=== PATIENT | female | born 1955 | race Caucasian/White ===

== ENCOUNTER → 2018-03-31 08:39 | Outpatient (CLI) | payer MEDICARE, SELFPAY | DX: M81.0 Age-related osteoporosis without current pathological fracture (principal) | CPT/HCPCS: 77080 ==

== ENCOUNTER → 2018-09-16 07:38 | Outpatient (CLI) | payer MEDICARE, SELFPAY ==
--- NOTE | 2018-09-16 07:41 | BI_ITS ---
MAMMOGRAPHY - BILATERAL SCREENING REASON FOR EXAM: Female, 63 years old. Routine annual screening examination. PERTINENT HISTORY: Non-contributory. Remote left stereotactic breast biopsy. TECHNIQUE: Digital bilateral breast anahy (3D mammographic acquisition) in the CC and MLO projections. 2-D mediolateral oblique (MLO) and craniocaudad (CC) views of both breasts were obtained. CAD: Full Field Digital Mammography with Computer Added Detection was performed. COMPARISON: Comparison is made with prior study dated July 10, 2017 and June 26, 2016. FINDINGS: Breast Composition: There are scattered areas of fibroglandular density. There are no dominant masses or suspicious calcifications. A tissue clip marker is once again seen in the inferior central portion of the left breast. No other significant abnormalities are identified. There has been no significant change since the prior study. BI/SCREENING MAMM (CAD), BILAT IMPRESSION: Stable bilateral screening mammogram. Yearly follow-up mammogram recommended. (A) ASSESSMENT CATEGORY: BIRADS Category 2: Benign. A letter regarding these results will be sent to the patient by the facility within 30 days. Approximately 10% of breast cancers are not detected by mammography. A normal mammogram should not delay biopsy of a clinically suspicious abnormality. [id number] Electronically Signed: Alton Resendiz MD at 9:40 EST , Service support ,
== END ==
DX: Z12.31 Encounter for screening mammogram for malignant neoplasm of breast (principal)
CPT/HCPCS: 77063; 77067

== ENCOUNTER → 2019-09-21 15:11 | Outpatient (CLI) | payer MEDICARE, SELFPAY ==
--- NOTE | 2019-09-21 15:17 | BI_ITS ---
MAMMOGRAPHY - BILATERAL SCREENING REASON FOR EXAM: Female, 64 years old. Routine annual screening examination. PERTINENT HISTORY: Non-contributory. TECHNIQUE: Digital bilateral breast jackeline (3D mammographic acquisition) in the CC and MLO projections. 2-D mediolateral oblique (MLO) and craniocaudad (CC) views of both breasts were obtained. CAD: Full Field Digital Mammography with Computer Added Detection was performed. COMPARISON: Comparison is made with prior study dated September 16, 2018 and July 10, 2017. FINDINGS: Breast Composition: There are scattered areas of fibroglandular density. There are no dominant masses or suspicious calcifications. A tissue clip marker is seen within the small nodular density in the inferior slightly medial aspect of the left breast. No other significant abnormalities are identified. There has been no significant change since the prior study. BI/SCREEN MAMM (CAD) W/JACKELINE BILAT IMPRESSION: Stable bilateral screening mammogram. Yearly follow-up mammogram recommended. (A) ASSESSMENT CATEGORY: BIRADS Category 2: Benign. A letter regarding these results will be sent to the patient by the facility within 30 days. Approximately 10% of breast cancers are not detected by mammography. A normal mammogram should not delay biopsy of a clinically suspicious abnormality. [id number] Electronically Signed: Alton Resendiz, at 8:29 EST , Service support ,
== END ==
DX: Z12.31 Encounter for screening mammogram for malignant neoplasm of breast (principal)
CPT/HCPCS: 77063; 77067

== ENCOUNTER → 2020-06-08 11:15 | Outpatient (CLI) ==
[2020-06-08 11:32] LABS: Absolute Lymphocyte Count 2.77 X10^3/uL (0.83-4.51); Absolute Neutrophil Count 7.5 X10^3/uL (2.0-7.7); Basophil# 0.05 X10^3/uL; Basophil% 0.4 % (0-1); Eosinophil# 0.17 X10^3/uL; Eosinophils% 1.5 % (0-5); Hematocrit 39.2 % (37-47); Hemoglobin 12.7 g/dL (12.0-15.0); Lymphocyte # 2.77 X10^3/ul (4.0); Lymphocyte % 24.1 % (19-41); Mean Corp Hgb Conc 32.4 g/dL (32-36); Mean Corpuscular Volume 92.7 fL (81-99); Mean Platelet Vol. 9.5 fl (6.2-12.0); Monocyte# 0.98 X10^3/uL; Monocyte% 8.5 % (0-10); NRBC Flagged by Analyzer 0 % (0-5); Neutrophil # 7.46 X10^3/uL (2.7-7.7); Platelet Count 318 K/mm3 (150-450); RBC Distribution Width CV 12.4 % (11.6-14.6); Red Blood Count 4.23 M/mm3 (4.2-5.4); White Blood Count 11.5 K/mm3 (4.4-11.0)
[2020-06-08 11:57] LABS: ALB/GLOB Ratio 0.8 RATIO (0.9-2.4); AST(SGOT) 13 U/L (15-37); Alanine Aminotransfer ALT/SGPT 19 U/L (13-56); Albumin, Serum 3.1 g/dL (3.2-5.0); Alkaline Phosphatase 92 U/L (45-117); Anion Gap 2 (5-15); BUN 25 mg/dL (7-18); BUN/Creat Ratio 20.2 RATIO (10-20); Calcium,Total 9.4 mg/dL (8.5-10.1); Chloride 109 mmol/L (98-107); Cholesterol 174 mg/dL (200); Creatinine, Serum 1.24 mg/dL (0.55-1.02); EST Glomerular Filtration Rate 46 mL/min (>60); Est Glom Filt Rate - Afr Amer 56 mL/min (>60); Globulin 3.7 g/dL (2.2-4.2); Glucose 199 mg/dL (74-106); High Density Lipoprotein 66 mg/dL; Potassium 4.5 mmol/L (3.5-5.1); Protein, Total 6.8 g/dL (6.4-8.2); Sodium Level 142 mmol/L (136-145); Triglycerides 155 mg/dL; Very Low Density Lipoprotein 31 mg/dL (5-40)
[2020-06-08 12:01] LABS: Vitamin D,25 Hydroxy 46.6 ng/mL
[2020-06-08 12:11] LABS: Hemoglobin A1c 11.9 % (3.8-5.6)
== END ==
DX: D64.9 Anemia, unspecified (principal); E11.65 Type 2 diabetes mellitus with hyperglycemia; I10 Essential (primary) hypertension; E78.5 Hyperlipidemia, unspecified; M81.0 Age-related osteoporosis without current pathological fracture; E83.52 Hypercalcemia
CPT/HCPCS: 36415; 80053; 80061; 82306; 83036; 85025

== ENCOUNTER → 2020-08-01 10:48 | Outpatient (CLI) | payer MEDICARE, SELFPAY ==
[2020-08-01 12:14] LABS: Thyroid Stim Hormone (TSH) 2.46 uIU/mL (0.358-3.74)
== END ==
PROVIDERS: Referring Provider Family Medicine; Visit Provider Family Medicine
DX: E78.5 Hyperlipidemia, unspecified (principal); E11.65 Type 2 diabetes mellitus with hyperglycemia
CPT/HCPCS: 36415; 84443

== ENCOUNTER → 2020-11-05 09:00 | Outpatient (CLI) | payer MEDICARE, SELFPAY ==
[2020-11-05 09:59] LABS: Glucose 276 mg/dL (74-106)
[2020-11-05 10:21] LABS: Hemoglobin A1c > 14.0 % (3.8-5.6)
== END ==
DX: E11.65 Type 2 diabetes mellitus with hyperglycemia (principal)
CPT/HCPCS: 36415; 82947; 83036

== ENCOUNTER → 2020-11-19 10:14 | Outpatient (CLI) | payer MEDICARE, SELFPAY ==
--- NOTE | 2020-11-19 10:28 | RAD_ITS ---
INDICATION: NICOTINE DEPENDENCE EXAMINATION/TECHNIQUE: X-RAY - XR Chest 2 Views COMPARISON: None. FINDINGS: Chronic lung changes. The cardiomediastinal silhouette is unremarkable. No pleural effusion or pneumothorax. No acute osseous abnormalities. RAD/Chest PA and Lateral IMPRESSION: No acute radiographic abnormalities. Chronic lung changes. Consider lung cancer screening low dose Chest CT w/o contrast. Electronically Signed: Cirilo Solis MD at 0:33 EDT Tel , Service support ,
[2020-11-19 10:38] LABS: Absolute Lymphocyte Count 3.03 X10^3/uL (0.83-4.51); Absolute Neutrophil Count 16.5 X10^3/uL (2.0-7.7); Basophil# 0.06 X10^3/uL; Basophil% 0.3 % (0-1); Eosinophil# 0.16 X10^3/uL; Eosinophils% 0.7 % (0-5); Hematocrit 39.1 % (37-47); Hemoglobin 12.4 g/dL (12.0-15.0); Lymphocyte # 3.03 X10^3/ul (4.0); Lymphocyte % 13.9 % (19-41); Mean Corp Hgb Conc 31.7 g/dL (32-36); Mean Corpuscular Hgb 29.7 pg (27.0-32.0); Mean Corpuscular Volume 93.8 fL (81-99); Mean Platelet Vol. 9.5 fl (6.2-12.0); Monocyte# 1.92 X10^3/uL; Monocyte% 8.8 % (0-10); NRBC Flagged by Analyzer 0 % (0-5); Neutrophil # 16.49 X10^3/uL (2.7-7.7); Neutrophil % 75.6 % (47-70); POSITIVE DIFFERENTIAL YES; Platelet Count 426 K/mm3 (150-450); RBC Distribution Width CV 13.2 % (11.6-14.6); RBC Distribution Width SD 45.3 fl (35.1-43.9); Red Blood Count 4.17 M/mm3 (4.2-5.4); White Blood Count 21.8 K/mm3 (4.4-11.0)
[2020-11-19 10:40] LABS: Differential Indicated SCAN CRITERIA MET
[2020-11-19 11:17] LABS: ALB/GLOB Ratio 0.8 RATIO (0.9-2.4); AST(SGOT) 16 U/L (15-37); Alanine Aminotransfer ALT/SGPT 20 U/L (13-56); Albumin, Serum 3.1 g/dL (3.2-5.0); Alkaline Phosphatase 99 U/L (45-117); Anion Gap 3 (5-15); BUN 20 mg/dL (7-18); BUN/Creat Ratio 17.9 RATIO (10-20); Calcium,Total 9.1 mg/dL (8.5-10.1); Chloride 107 mmol/L (98-107); Creatinine, Serum 1.12 mg/dL (0.55-1.02); EST Glomerular Filtration Rate 52 mL/min (>60); Est Glom Filt Rate - Afr Amer 63 mL/min (>60); Globulin 3.7 g/dL (2.2-4.2); Glucose 74 mg/dL (74-106); Iron 34 ug/dL (50-170); Iron Binding Capacity,Total 301 ug/dL (250-450); Potassium 3.7 mmol/L (3.5-5.1); Protein, Total 6.8 g/dL (6.4-8.2); Sodium Level 141 mmol/L (136-145); T4 Free Direct 1.16 ng/dL (0.76-1.46); Thyroid Stim Hormone (TSH) 3.51 uIU/mL (0.358-3.74)
[2020-11-20 12:34] LABS: Pathologist Review Reviewed
== END ==
DX: E11.65 Type 2 diabetes mellitus with hyperglycemia (principal); F17.200 Nicotine dependence, unspecified, uncomplicated
CPT/HCPCS: 36415; 71046; 80053; 83540; 83550; 84439; 84443; 85025

== ENCOUNTER → 2020-11-21 08:17 | Outpatient (CLI) | payer MEDICARE, SELFPAY ==
--- NOTE | 2020-11-21 08:19 | BI_ITS ---
MAMMOGRAPHY - BILATERAL SCREENING REASON FOR EXAM: Female, 65 years old. Routine annual screening examination. PERTINENT HISTORY: Non-contributory. Remote left stereotactic breast biopsy. TECHNIQUE: Digital bilateral breast jackeline (3D mammographic acquisition) in the CC and MLO projections. 2-D mediolateral oblique (MLO) and craniocaudad (CC) views of both breasts were obtained. CAD: Full Field Digital Mammography with Computer Added Detection was performed. COMPARISON: Comparison is made with prior study dated 09/21/2019 and 03/16/2019. FINDINGS: Breast Composition: The breasts are heterogeneously dense, which may obscure small masses. There are no dominant masses or suspicious calcifications. Since prior study, there has been increase in the amount of fibroglandular tissue as well as bilateral skin thickening. A tissue clip marker is once again seen in the inferior slightly medial aspect of the left breast. No other significant abnormalities are identified. There has been no significant change since the prior study. BI/SCRN MAMM (CAD)W/JACKELINE BILAT IMPRESSION: Stable bilateral screening mammogram. Bilateral skin thickening and increased breast tissue in both breasts as compared to prior study. Yearly follow-up mammogram recommended. (A) ASSESSMENT CATEGORY: BIRADS Category 2: Benign. A letter regarding these results will be sent to the patient by the facility within 30 days. Approximately 10% of breast cancers are not detected by mammography. A normal mammogram should not delay biopsy of a clinically suspicious abnormality. [id number] Electronically Signed: Alton Resendiz MD at 10:20 EDT , Service support ,
--- NOTE | 2020-11-21 08:36 | EKG12_ITS ---
Test Reason : Blood Pressure : / mmHG Vent. Rate : 093 BPM Atrial Rate : 093 BPM P-R Int : 186 ms QRS Dur : 098 ms QT Int : 338 ms P-R-T Axes : 076 010 -40 degrees QTc Int : 420 ms Sinus rhythm with Premature atrial complexes in a pattern of bigeminy Left ventricular hypertrophy with repolarization abnormality Anterior infarct , age undetermined Abnormal ECG Confirmed by JETT OQUENDO, KIERA ([id number]), brands editor MATTHEW MORA ([id number]) on 11/22/2020 10:48:48 AM Referred By: [facility] Confirmed By:KIERA FRAUSTO MD
== END ==
DX: Z12.31 Encounter for screening mammogram for malignant neoplasm of breast (principal); I49.9 Cardiac arrhythmia, unspecified
CPT/HCPCS: 77063; 77067; 93005

== ENCOUNTER → 2020-12-03 11:34 | Outpatient (CLI) | payer MEDICARE, SELFPAY ==
[2020-12-03 13:08] LABS: Absolute Neutrophil Count 9.2 X10^3/uL (2.0-7.7); Basophil# 0.03 X10^3/uL; Basophil% 0.2 % (0-1); Eosinophil# 0.09 X10^3/uL; Eosinophils% 0.7 % (0-5); Hematocrit 33.5 % (37-47); Hemoglobin 10.7 g/dL (12.0-15.0); Lymphocyte % 16.5 % (19-41); Mean Corp Hgb Conc 31.9 g/dL (32-36); Mean Corpuscular Hgb 30.2 pg (27.0-32.0); Mean Corpuscular Volume 94.6 fL (81-99); Mean Platelet Vol. 9.9 fl (6.2-12.0); Monocyte# 0.75 X10^3/uL; Monocyte% 6.2 % (0-10); NRBC Flagged by Analyzer 0 % (0-5); Neutrophil # 9.18 X10^3/uL (2.7-7.7); Neutrophil % 75.8 % (47-70); Platelet Count 373 K/mm3 (150-450); RBC Distribution Width CV 13.2 % (11.6-14.6); RBC Distribution Width SD 45.3 fl (35.1-43.9); Red Blood Count 3.54 M/mm3 (4.2-5.4); White Blood Count 12.1 K/mm3 (4.4-11.0)
[2020-12-03 13:50] LABS: Microalbumin:Creatinine Ratio 2918.2 mg/g CRE (<30 mg/g CRE)
== END ==
DX: E11.65 Type 2 diabetes mellitus with hyperglycemia (principal)
CPT/HCPCS: 36415; 82043; 82570; 85025

== ENCOUNTER → 2020-12-05 11:04 | Outpatient (CLI) | payer MEDICARE, SELFPAY | DX: E11.65 Type 2 diabetes mellitus with hyperglycemia (principal) | CPT/HCPCS: 82274 ==

== ENCOUNTER → 2020-12-10 07:53 | Outpatient (CLI) | payer MEDICARE, SELFPAY ==
--- NOTE | 2020-12-10 07:55 | CT_ITS ---
STUDY: LOW DOSE CT LUNG CANCER SCREENING REASON FOR EXAM: Female, 65 years old. NICOTINE DEPENDENCE. The patient has a smoking history of 1 pack per day for 17 years. RADIATION DOSAGE (If Supplied By Facility): CTDIvol = ( 2.01 ) mGy, DLP = ( 64.69 ) mGycm TECHNIQUE: No contrast was administered. Low dose technique was utilized (average mAS-38 and kVp 120). 1.25 mm axial source images with a slice interval of 1.25-mm were reconstructed in lung windows. 2.5 mm axial source images with a slice interval of 2.5-mm were reconstructed in lung windows. 5.0 mm axial source images with a slice interval of 5.0-mm were reconstructed in soft tissue windows. Nodule measured using lung windows on PACS and/or independent workstation with automated measurement of minimum and maximum diameter. Nodule measurement reported as average diameter rounded to the nearest whole number. Growth is defined as an increase ins size of greater than 1.5 mm. COMPARISON: None. NODULES: No suspicious nodules are seen. Emphysema: Bilateral pleural effusions right greater than left with bibasilar atelectasis. Increased interstitial markings are seen. This is suggestive of possible mild degree of CHF. Increased markings are also seen in the posterior aspect of the right middle lobe as well as in the lingula segment of the left upper lobe suggestive of a atelectasis. Endobronchial lesion: None Aorta: Minimal atherosclerotic plaque formation of the aortic arch. Coronary arteries: Coronary artery calcification. Heart: Cardiomegaly. Mediastinal nodes: Small benign-appearing axillary lymph nodes. Other chest and abdominal findings: CT/Low Dose CT Lung Screening IMPRESSION: Lung-RADS category 2 - Continue annual screening with LDCT in 12 months. IMPORTANT NOTES FOR USE: ACR Lung-RADS Version 1.1 Assessment Categories Release Date: 2018 Category: Coded 0-4 bases on nodule(s) with highest degree of suspicion. Negative screen is defined as categories 1 and 2; a positive screen is defined as categories 3 and 4. Category 3 and 4A nodules that are unchanged on interval CT should be coded as category 2, and individuals returned to screening in 12 months. Category 4X: Category 3 or 4 nodules with additional imaging findings that increase the suspicion of lung cancer, such as spiculation, GGN that doubles in size in 1 year, enlarged lymph notes, etc. Category Modifiers: S (significant finding unrelated to lung cancer) Electronically Signed: Alton Resendiz MD at 9:18 EDT , Service support ,
== END ==
DX: F17.210 Nicotine dependence, cigarettes, uncomplicated (principal)
CPT/HCPCS: 71271

== ENCOUNTER → 2020-12-13 12:22 | Outpatient (CLI) | payer MEDICARE, SELFPAY ==
[2020-12-13 14:05] LABS: BNP,B-Type NATRIURETIC PEPTIDE 959.8 pg/mL (0-100)
== END ==
DX: I50.20 Unspecified systolic (congestive) heart failure (principal)
CPT/HCPCS: 36415; 83880

== ENCOUNTER 2020-12-15 01:05 | Inpatient (IN) | payer MEDICARE, SELFPAY ==
[2020-12-15] VITALS (57 sets, daily range): BP systolic 120–246; BP diastolic 53–103; PULSE 70–122; RESP 12–42; TEMP 35.8–36.8; O2SAT 87–249; BMI 23.0; BMI 24.7; BMI 24.8
--- NOTE | 2020-12-15 01:06 | RAD_ITS ---
STUDY: X-RAY CHEST REASON FOR EXAM: Female, 65 years old. Sob TECHNIQUE: 1 view COMPARISON: 11/19/2020 FINDINGS: Cardiac silhouette is mildly enlarged. There has been interval development of small bowel to moderate-sized bilateral pleural effusions and lower lung airspace opacities, likely atelectasis. Mild pulmonary vascular congestion is seen. There is no pneumothorax. Multilevel thoracic spondylosis is noted. RAD/Chest 1 View (Portable) IMPRESSION: Developing CHF. Electronically Signed: Darrel Hoover MD at 1:40 EDT Tel , Service support ,
--- NOTE | 2020-12-15 01:06 | EKG12_ITS ---
Test Reason : SOB Blood Pressure : / mmHG Vent. Rate : 109 BPM Atrial Rate : 109 BPM P-R Int : 128 ms QRS Dur : 092 ms QT Int : 350 ms P-R-T Axes : 068 005 092 degrees QTc Int : 471 ms Somatic/Motion Artifact Sinus tachycardia Left ventricular hypertrophy Nonspecific ST and T wave abnormality Abnormal ECG Confirmed by JETT OQUENDO, KIERA ([id number]), brands editor TULIO MCFARLAND ([id number]) on 12/18/2020 8:46:18 AM Referred By: [facility] Confirmed By:KIERA FRAUSTO MD
[2020-12-15 01:16] LABS: Bedside Glucose 418 mg/dL (70-110)
[2020-12-15 01:25] LABS: Absolute Lymphocyte Count 4.33 X10^3/uL (0.83-4.51); Absolute Neutrophil Count 7.7 X10^3/uL (2.0-7.7); Basophil# 0.07 X10^3/uL; Basophil% 0.5 % (0-1); Eosinophil# 0.11 X10^3/uL; Eosinophils% 0.8 % (0-5); Hematocrit 37.6 % (37-47); Hemoglobin 11.5 g/dL (12.0-15.0); Lymphocyte # 4.33 X10^3/ul (0.83-4.51); Lymphocyte % 31.7 % (19-41); Mean Corp Hgb Conc 30.6 g/dL (32-36); Mean Corpuscular Hgb 29.9 pg (27.0-32.0); Mean Corpuscular Volume 97.7 fL (81-99); Mean Platelet Vol. 9.4 fl (6.2-12.0); Monocyte# 1.35 X10^3/uL; Monocyte% 9.9 % (0-10); NRBC Flagged by Analyzer 0 % (0-5); Neutrophil % 56.3 % (47-70); Platelet Count 515 K/mm3 (150-450); RBC Distribution Width CV 13.6 % (11.6-14.6); RBC Distribution Width SD 48.6 fl (35.1-43.9); Red Blood Count 3.85 M/mm3 (4.2-5.4); White Blood Count 13.7 K/mm3 (4.4-11.0)
[2020-12-15] MEDS: Nitroglycerin SL (ED/IMG/CATH) 0.4 MG TABLET SL (01:25)
[2020-12-15 01:43] LABS: ALB/GLOB Ratio 0.8 RATIO (0.9-2.4); AST(SGOT) 85 U/L (15-37); Alanine Aminotransfer ALT/SGPT 79 U/L (13-56); Albumin, Serum 3.1 g/dL (3.2-5.0); Alkaline Phosphatase 146 U/L (45-117); Anion Gap 5 (5-15); BUN 31 mg/dL (7-18); BUN/Creat Ratio 20.4 RATIO (10-20); Calcium,Total 9.5 mg/dL (8.5-10.1); Chloride 107 mmol/L (98-107); Creatinine, Serum 1.52 mg/dL (0.55-1.02); EST Glomerular Filtration Rate 37 mL/min (>60); Est Glom Filt Rate - Afr Amer 44 mL/min (>60); Estimated Creatinine Clearance 35.46 ml/min; Globulin 4.1 g/dL (2.2-4.2); Glucose 439 mg/dL (74-106); Protein, Total 7.2 g/dL (6.4-8.2); Sodium Level 141 mmol/L (136-145)
[2020-12-15 01:46] LABS: BNP,B-Type NATRIURETIC PEPTIDE 1079.6 pg/mL (0-100)
[2020-12-15 01:50] LABS: Allen Test Positive; Base Excess 2 mmol/L (-2 to +2); Bicarbonate 26.9 mmol/L (22-26); Blood Gas Specimen Type ART; FI02 50; O2 Delivery Device BiPAP; PEEP 6; PO2 61 mmHG (75-100); PS 10; RR 12; SITE L Radial; SO2 90 % (95-99); Total Carbon Dioxide 28 mmol/L; pCO2 45.7 mmHg (35-45); pH 7.38 (7.35-7.45)
--- NOTE | 2020-12-15 01:55 | ED.VIS.GEN ---
History of Present Illness Chief Complaint: Shortness of Breath Informant: Patient Onset: Days Context: Gradual Onset Timing: Continuous Current Severity: Moderate Maximum Severity: Severe Narrative: Patient is a 65-year-old female with history of smoking who presents to the emergency department with rather significant shortness of breath. The patient states that she has been short of breath for over a week. She actually had outpatient CT done 4 days ago. It did demonstrate large pleural effusions. Per squad report, she has been treated for pneumonia. She is had a scant cough, but no fever or chills. She called squad tonight, because she felt like she cannot catch her breath. On squad arrival, the patient was 82% on room air. She had significant accessory muscle use and tachypnea. She had rails. She was given nebulized breathing treatment with no improvement. She was placed on nonrebreather and saturations were only increased into 88%. Patient denies chest pain. She denies fever. She states that she cannot lie flat and has had increasing lower extremity edema. Prior similar symptoms: No Recent Illness/Hospitalization: No Past Medical History - Allergies and Home Meds Allergies/Adverse Reactions: Allergies No Known Allergies Allergy (Verified 12/15/20 01:09) [facility] - Prior records reviewed: Yes Past Medical History: - - Smoking history, hypertension Surgical History: noncontributory Smoking Status: Unknown if ever smoked Review of Systems General: Denies: Chills, Fever, Sweats Eyes: Denies: Visual changes - bilaterally, Diplopia ENT: Denies: Rhinorrhea, Sore throat Cardiovascular: Denies: Chest pain, Palpitations Respiratory: Reports: Dyspnea, Cough, Dyspnea on exertion, Orthopnea Gastrointestinal: Reports: Nausea. Denies: Abdominal pain, Vomiting, Diarrhea, Melena, Hematochezia Genitourinary: Denies: Dysuria, Hematuria, Frequency Musculoskeletal: Denies: Back pain, Extremity Pain Skin: Denies: Rash, Wounds Neurological: Denies: Headache, Weakness, Numbness Physical Exam Vital Signs/Narrative: Vital Signs Temp Pulse Resp BP Pulse Ox 12/15/20 01:25 120 H 246/103 H 12/15/20 01:07 96.5 F L 120 H 25 H 245/103 H 92 12/15/20 01:05 96.5 F L 122 H 24 H 87 Inital Vital Signs reviewed: Yes General: Well nourished, Well developed, No Acute Distress Head: Normocephalic, Atraumatic Eyes: Perrl, EOMI ENT: Moist mucous membranes, No rhinorrhea Neck: Supple, Nontender Cardiovascular: Regular rate, Regular rhythm, No murmurs Respiratory: Rales, Diminished, Decreased Air Movement Abdomen: Soft, Nontender, Nondistended, Normal bowel sounds Back: Nontender, Normal Inspection Extremities: Nontender, Edema Skin: Normal color, No rash Neurological: Alert, Oriented x3, Cranial nerves II-XII grossly intact, Normal Strength, Normal Sensation Psychological: Normal affect, Normal Mood Diagnostic/Tx/Re-eval Chest X-Ray - ED: 1 View, Read by ED Physician, Normal, Mediastinum, Cardiomegaly, CHF, Right Effusion, Left Effusion Clinical Impression(s) from Imaging Studies Chest X-Ray 12/15/20 01:06 IMPRESSION: Developing CHF. Electronically Signed: Darrel Hoover MD at 1:40 EDT Tel , Service support , Abnormal Lab Results 12/15/20 12/15/20 12/15/20 01:10 01:15 01:15 WBC 13.7 H RBC 3.85 L Hgb 11.5 L Hct 37.6 MCV 97.7 MCH 29.9 MCHC 30.6 L RDW Std Deviation 48.6 H RDW Coeff of Lurdes 13.6 Plt Count 515 H MPV 9.4 Immature Gran % (Auto) 0.800 Neut % (Auto) 56.3 Lymph % (Auto) 31.7 Hoke % (Auto) 9.9 Eos % (Auto) 0.8 Baso % (Auto) 0.5 Absolute Neuts (auto) 7.7 Absolute Lymphs (auto) 4.33 Nucleated RBC % 0 PT 12.0 INR 1.0 Specimen Type Sample Site pH Bicarbonate Actual Total CO2 Base Excess O2 Saturation O2 % ABG pCO2 ABG pO2 Storm Test Respiration Rate O2 Delivery Device POC PEEP POC Pressure Suppt Sodium Potassium Chloride Carbon Dioxide Anion Gap BUN Creatinine Estim Creat Clear Calc Est GFR (MDRD) Af Amer Est GFR (MDRD) Non-Af BUN/Creatinine Ratio Glucose Lactic Acid Calcium Total Bilirubin AST ALT Alkaline Phosphatase Troponin I B-Natriuretic Peptide Total Protein Albumin Globulin Albumin/Globulin Ratio Urine Color Urine Clarity Urine pH Ur Specific [place] Urine Protein Urine Glucose (UA) Urine Ketones Urine Occult Blood Urine Nitrite Urine Bilirubin Urine Urobilinogen Ur Leukocyte Esterase Urine RBC Urine WBC Ur Squamous Epith Cells Urine Bacteria Urine Mucus POC Glucose 418 H 12/15/20 12/15/20 12/15/20 01:15 01:15 01:15 WBC RBC Hgb Hct MCV MCH MCHC RDW Std Deviation RDW Coeff of Lurdes Plt Count MPV Immature Gran % (Auto) Neut % (Auto) Lymph % (Auto) Hoke % (Auto) Eos % (Auto) Baso % (Auto) Absolute Neuts (auto) Absolute Lymphs (auto) Nucleated RBC % PT INR Specimen Type Sample Site pH Bicarbonate Actual Total CO2 Base Excess O2 Saturation O2 % ABG pCO2 ABG pO2 Storm Test Respiration Rate O2 Delivery Device POC PEEP POC Pressure Suppt Sodium 141 Potassium 4.0 Chloride 107 Carbon Dioxide 29.0 Anion Gap 5 BUN 31 H Creatinine 1.52 H Estim Creat Clear Calc 35.46 Est GFR (MDRD) Af Amer 44 L Est GFR (MDRD) Non-Af 37 L BUN/Creatinine Ratio 20.4 H Glucose 439 H Lactic Acid 2.9 H* Calcium 9.5 Total Bilirubin 0.30 AST 85 H ALT 79 H Alkaline Phosphatase 146 H Troponin I 0.078 H B-Natriuretic Peptide 1079.6 H Total Protein 7.2 Albumin 3.1 L Globulin 4.1 Albumin/Globulin Ratio 0.8 L Urine Color Urine Clarity Urine pH Ur Specific [place] Urine Protein Urine Glucose (UA) Urine Ketones Urine Occult Blood Urine Nitrite Urine Bilirubin Urine Urobilinogen Ur Leukocyte Esterase Urine RBC Urine WBC Ur Squamous Epith Cells Urine Bacteria Urine Mucus POC Glucose 12/15/20 12/15/20 01:44 01:50 WBC RBC Hgb Hct MCV MCH MCHC RDW Std Deviation RDW Coeff of Lurdes Plt Count MPV Immature Gran % (Auto) Neut % (Auto) Lymph % (Auto) Hoke % (Auto) Eos % (Auto) Baso % (Auto) Absolute Neuts (auto) Absolute Lymphs (auto) Nucleated RBC % PT INR Specimen Type ART Sample Site L Radial pH 7.38 Bicarbonate Actual 26.9 H Total CO2 28 Base Excess 2 O2 Saturation 90 L O2 % 50 ABG pCO2 45.7 H ABG pO2 61 L Storm Test Positive Respiration Rate 12 O2 Delivery Device BiPAP POC PEEP 6 POC Pressure Suppt 10 Sodium Potassium Chloride Carbon Dioxide Anion Gap BUN Creatinine Estim Creat Clear Calc Est GFR (MDRD) Af Amer Est GFR (MDRD) Non-Af BUN/Creatinine Ratio Glucose Lactic Acid Calcium Total Bilirubin AST ALT Alkaline Phosphatase Troponin I B-Natriuretic Peptide Total Protein Albumin Globulin Albumin/Globulin Ratio Urine Color Yellow Urine Clarity Clear Urine pH 6.0 Ur Specific [place] 1.020 Urine Protein 100 H Urine Glucose (UA) 1000 H Urine Ketones Negative Urine Occult Blood 25 H Urine Nitrite Negative Urine Bilirubin Negative Urine Urobilinogen Normal Ur Leukocyte Esterase Negative Urine RBC 5-10 SEEN Urine WBC 0-5 SEEN Ur Squamous Epith Cells 0-5 SEEN Urine Bacteria 0 SEEN Urine Mucus 0 SEEN POC Glucose - Rhythm Strip Rhythm Strip: Sinus Rhythm Rate: 90 Ectopy: None - EKG Initial EKG Interpretation: Sinus Rhythm, No Acute Injury Pattern Prior: No Prior - Medical Decision Making Patient presents with rather significant worsening dyspnea. She does have rales later audible in all serrano. Patient was immediately transitioned to BiPAP given her increased work of breathing and hypoxia on nonrebreather. We are able to get oxygen saturations in the upper 90s on 50% FiO2. Chest x-ray does confirm rather significant CHF with large effusions. Patient was given sublingual nitro she was markedly hypertensive to decrease her preload. She was then started on a nitro drip. Chest x-ray reviewed by myself and the radiologist does demonstrate cephalization with large pleural effusions. Patient was given IV Lasix to increase diuresis. EKG demonstrates LVH without evidence of acute ischemia. Screening labs are relatively unremarkable. At this point, given the patient's hypoxic respiratory failure and significant pulmonary edema, she is going to require admission. Patient was discussed with the hospitalist. Impression 1. New onset congestive heart failure 2. Hypoxic respiratory failure - Critical Care Time Critical care time (excluding procedures): 30-74 minutes, Discussing w/Patient &/or Family/[employer], Discussing w/Consultants, Arranging Admission or Transfer, Performing Direct Patient Care at Bedside ED Disposition - Plan for ED Patient: Referrals: [facility] Pascual [Primary Care Provider] -
--- NOTE | 2020-12-15 01:56 | PCM.HP.STD ---
Problem List (1) Acute respiratory failure with hypoxia Status: Acute (2) Acute decompensated heart failure Status: Acute (3) Hypertensive urgency Status: Acute (4) Elevated troponin Status: Acute (5) Elevated LFTs Status: Acute (6) Chronic anemia Status: Chronic (7) Chronic kidney disease, stage III (moderate) Status: Chronic Qualifiers: Chronic kidney disease stage 3 subtype: unspecified whether 3a or 3b Qualified Code(s): N18.30 - Chronic kidney disease, stage 3 unspecified (8) Diabetes mellitus, type II Status: Chronic Qualifiers: Diabetes mellitus shelter insulin use: without salvage determiner use Diabetes mellitus complication status: with other specified complication Qualified Code(s): E11.69 - Type 2 diabetes mellitus with other specified complication (9) Hypertension Status: Chronic Qualifiers: Hypertension type: essential hypertension Qualified Code(s): I10 - Essential (primary) hypertension (10) Hyperlipidemia Status: Chronic Qualifiers: Hyperlipidemia type: unspecified Qualified Code(s): E78.5 - Hyperlipidemia, unspecified (11) Tobacco use Status: Chronic History of Present Illness Date of Admission: 12/15/20 Chief Complaint: Dyspnea The patient is a 65 y/o F w/ PMHx: HTN, HLD, Chronic anemia/Fe deficiency, Diabetes mellitus type IIl, Tobacco who presents to the [facility] ED on 12/15/20 with history of increasing shortness of breath over the last 2 weeks, recent CT chest without contrast on 12/11/20 which had notable pleural effusions, recent URI treatment with z-pack with onset more severe dyspnea over the last 3 nights with BL LE notable pedal to knee edema, weight gain and orthopnea, noted to be initially 82% on RA per EMS. She denies any associated chest pain. Work-up in the ED included T 96.5 temporally, heart rate 122, BP initially 245/103, respiratory rate 24, 87% on nonrebreather transition to BiPAP with improvement to 92%, CBC with WBC 13.7, hemoglobin 11.5, platelet 515 with no marked shift, unremarkable coags, CMP with BUN/creatinine 31/1.52, glucose 439, AST/ALT 85/79, alk phos 146, troponin 0 0.078, BNP 1079.6, lactic acid pending upon evaluation, blood culture x2 pending per ED, rapid Covid antigen pending upon evaluation, chest x-ray with findings concerning for acute CHF, ABG with pH 7.38, O2 saturation 90, PCO2 45.7, PO2 61 on BiPAP, EKG SR with LVH without acute evidence of ischemia, blood culture x2 pending per ED, UA pending per ED, rapid SARS Covid antigen negative. In the ED patient ministered Lasix 40 mg IV x1 in addition to sublingual nitroglycerin and eventually initiated on nitro drip. Past Medical History Past Medical History (Chronic Problems): Chronic Problems Chronic anemia (Chronic) Chronic kidney disease, stage III (moderate) (Chronic) Diabetes mellitus, type II (Chronic) Hypertension (Chronic) Hyperlipidemia (Chronic) Tobacco use (Chronic) Allergies No Known Allergies Allergy (Verified 12/15/20 01:09) Home Medications: Ambulatory Orders Medication Instructions Recorded Atorvastatin Calcium [Lipitor] 10 mg PO QHS 12/15/20 Ferrous Sulfate 325 mg PO DAILY 12/15/20 Glimepiride 4 mg PO DAILY 12/15/20 Lisinopril [Zestril] 20 mg PO DAILY 12/15/20 Metformin HCl [Metformin HCl ER] 500 mg PO BID 12/15/20 Surgical History: - - Tonsillectomy, cryosurgery, left breast biopsy x2. Psychiatric History: No pertinent psych hx NURSE WOUND History: No pertinent NURSE WOUND history Lives: Alone Smoking Status: Current every day smoker - Patient with ongoing approximately 3 cigarette tobacco usage per day but prior to this she had been 1 pack/day cigarette tobacco usage since she been a teenager but has been cutting back. Tobacco Use: Cigarettes Alcohol: None Drugs: None - *Family History Maternal History Items: Heart Disease Paternal History Items: Diabetes Review of Systems Constitutional: Reports: Malaise, Weakness, Fatigue. Denies: Anorexia, Chills, Fever, Weight Change HEENT: Denies: Head Aches, Sinus Congestion, Sinus Drainage Cardiovascular: Reports: Edema, Light Headedness, Orthopnea. Denies: Chest Pain, Chest Pressure, Chest Tightness, Palpitations, Syncope Respiratory: Reports: Shortness of Breath, Shortness of breath at rest, Shortness of breath upon exertion. Denies: Cough, Sputum production Gastrointestinal: Denies: Abdominal Pain, Nausea, Vomiting Genitourinary: Denies: Dysuria Musculoskeletal: Reports: Joint Pain. Denies: Joint Tenderness Skin: Denies: Rash, Wounds Neurological: Denies: Numbness, Tingling, Focal weakness Psychiatric: Denies: Anxiety, Depression, Homicidal Ideations, Suicidal Ideations Hematologic/ Lymphatic: Denies: Easy Bruising, Easy Bleeding VTE Information - Inpt Only VTE Present on Admission: No VTE Mechan Device Prophylaxis: SCD's VTE Pharm Prophylaxis ordered?: Yes Patient Problems: Active and Suspected Problems Acute respiratory failure with hypoxia (Acute) Acute decompensated heart failure (Acute) Hypertensive urgency (Acute) Elevated LFTs (Acute) Elevated troponin (Acute) Subjective: Patient seated upright in the ED bed, fatigued, BiPAP in place, still increased work of breathing and some accessory muscle usage, appears more dyspneic with any attempted conversation. Objective: Physical Examination: General: awake, alert, oriented x 3 and cooperative, seated upright in the ED with BiPAP in place, ongoing respiratory distress although improving, increased work of breathing, accessory muscle usage, notably worsened with any conversation attempts. Skin: normal color, turgor, no icterus, cyanosis. HEENT: AT/NC, EOMI, PERRLA, dry MM, no carotid bruits, +JVD noted. Lungs: Severely diffusely diminished breath sounds, BiPAP in place, still some increased work of breathing with accessory muscle usage with evidence of distress, Rales bilateral bases. Heart: Mildly tachycardic with regular rhythm; no gallop, rub audible. Abdomen: soft, NTTP, ND, normal BS, no HSM. Extremities: no cyanosis or clubbing, 2+ pedal to knee hitting edema. Neurological: patient awake, alert, oriented as noted; cognitive function improving, near baseline intact; pupils equally reactive to light and accomodation; cranial nerves II-XII grossly normal, moving all 4 extremities, no focal deficits, strength severely global decrease secondary to acute presentation. Psychiatric: affect appears fatigued, still increased work of breathing and accessory muscle usage with distress, improving however, no acute evidence of depressive or anxiety feelings. - Physical Exam Vitals/I&O's: Vital Signs Temp Pulse Resp BP Pulse Ox 96.5 F L 120 H 25 H 246/103 H 92 12/15/20 01:07 12/15/20 01:25 12/15/20 01:07 12/15/20 01:25 12/15/20 01:07 Oxygen Flow Rate (L/min) 15 Oxygen Delivery Method Bi-pap Weight: 142 lb 10.225 oz Body Mass Index (BMI) 23.0 Laboratory Results 12/15/20 01:10: POC Glucose 418 H 12/15/20 01:15: WBC 13.7 H, RBC 3.85 L, Hgb 11.5 L, Hct 37.6, MCV 97.7, MCH 29.9, MCHC 30.6 L, RDW Std Deviation 48.6 H, RDW Coeff of Lurdes 13.6, Plt Count 515 H, MPV 9.4, Immature Gran % (Auto) 0.800, Neut % (Auto) 56.3, Lymph % (Auto) 31.7, [place] % (Auto) 9.9, Eos % (Auto) 0.8, Baso % (Auto) 0.5, Absolute Neuts (auto) 7.7, Absolute Lymphs (auto) 4.33, Nucleated RBC % 0 12/15/20 01:15: PT 12.0, INR 1.0 12/15/20 01:15: Sodium 141, Potassium 4.0, Chloride 107, Carbon Dioxide 29.0, Anion Gap 5, BUN 31 H, Creatinine 1.52 H, Estim Creat Clear Calc 35.46, Est GFR (MDRD) Af Amer 44 L, Est GFR (MDRD) Non-Af 37 L, BUN/Creatinine Ratio 20.4 H, Glucose 439 H, Calcium 9.5, Total Bilirubin 0.30, AST 85 H, ALT 79 H, Alkaline Phosphatase 146 H, Troponin I 0.078 H, Total Protein 7.2, Albumin 3.1 L, Globulin 4.1, Albumin/Globulin Ratio 0.8 L 12/15/20 01:15: Lactic Acid Pending 12/15/20 01:15: B-Natriuretic Peptide 1079.6 H 12/15/20 01:44: Specimen Type ART, Sample Site L Radial, pH 7.38, Bicarbonate Actual 26.9 H, Total CO2 28, Base Excess 2, O2 Saturation 90 L, O2 % 50, ABG pCO2 45.7 H, ABG pO2 61 L, Storm Test Positive, Respiration Rate 12, O2 Delivery Device BiPAP, POC PEEP 6, POC Pressure Suppt 10 Current Medications Nitroglycerin/Dextrose () 250 mls @ 6 mls/hr CONT INF .[id number] [facility]; Protocol Assessment/Plan All Active Problems Acute respiratory failure with hypoxia (Acute) Acute decompensated heart failure (Acute) Hypertensive urgency (Acute) Elevated LFTs (Acute) Elevated troponin (Acute) The patient is a 65 y/o F w/ PMHx: HTN, HLD, Chronic anemia/Fe deficiency, Diabetes mellitus type IIl, Tobacco who presents to the [facility] ED on 12/15/20 with history of increasing shortness of breath over the last 2 weeks, recent CT chest without contrast on 12/11/20 which had notable pleural effusions, recent URI treatment with z-pack with onset more severe dyspnea over the last 3 nights with BL LE notable pedal to knee edema, weight gain and orthopnea. 1. Acute Hypoxic Respiratory Failure secondary to Acute Decompensated CHF, Unclear type: CXR obtained in the ED w/ findings consistent with acute CHF. Patient administered IV lasix in the ED, will admit to the ICU, continue nitroglycerin drip given severity of presentation, continue BiPAP placement, will consult manager of finance and continue cardiology consultation, maintain on cardiac telemetry, obtain cardiac enzyme series, obtain serial EKGs, continue IV lasix diuresis, monitor I/Os, maintain on intake restriction, continue medical therapy, obtain TSH and magnesium level. Will request ECHO. PRN morphine to decrease afterload, continue oxygen supplementation, if necessary will position w/ upright position with legs off bed to decrease preload. 2. Hypertension urgency: Associated with #1, will continue home regimen including IV Lasix, nitro drip as noted, continue patient home lisinopril regimen, add beta-william therapy, PRN hydralazine. 3. Transaminitis, suspected secondary to #1 acute decompensated CHF: Admission AST/ALT 85/79, alk phos 146, will continue treatment #1 and repeat and trend CMP. 4. Indeterminate cardiac enzyme: Likely secondary to #1, admission EKG SR with no acute evidence of ischemia, initial troponin 0 0.078, will maintain on telemetry monitoring as noted and continue to serial trend cardiac enzymes. 5. Chronic anemia/iron deficiency anemia: Admission hemoglobin 11.5, baseline appears 10-12 range, stable, continue iron supplementation and CBC trending. 6. Diabetes mellitus type II with hyperglycemia: Hold oral home regimen, blood sugar upon presentation 418, will obtain hemoglobin A1c and add long-acting insulin if appropriate, given continuation currently of BiPAP will maintain n.p.o. status but initiate ADA diet once clinically improving, accu checks w/ ISS. 7. Hyperlipidemia: Continue home statin regimen. AM FLP. 8. Chronic Kidney Disease Stage III with renal insufficiency: Admission BUN/Cr 31/1.52, baseline renal function 1.1-1.2, repeat BMP in AM. 9. DVT prophylaxis: SCDs, Lovenox. 10. CODE status: Patient does not have healthcare power of workers compensation attorney or living will set up. Discussed CODE status at length including difference between FULL code, DNR-CCA and DNR-CC status. Following discussions about the differences in these status, requested Full Code status. Advanced Care Planning Face to Face Time: 16 minutes. Inpatient E&M: 24892 Init Hosp L3 Procedures: 13577 Advncd Care Plan 30 Min
[2020-12-15 01:58] LABS: Lactic Acid 2.9 mmol/L (0.4-1.9)
[2020-12-15 01:58] LABS: Bacteria 0 SEEN /hpf (None Seen); Mucous, Urine 0 SEEN /hpf (<or=2+)
[2020-12-15] MEDS: Furosemide 40 MG/4 ML Vial IV ×3 (01:58→18:16)
[2020-12-15] MEDS: Nitroglycerin Infusion 250 ML 6 MG CONT INF (01:58)
[2020-12-15 01:59] LABS: Color, Urine Yellow (Yellow); Glucose, Dipstick 1000 mg/dl (Normal); Ketone-Dipstick Negative (Negative); Leukocyte Esterase-Dipstick Negative /ul (Negative); Nitrite-Dipstick Negative (Negative); Occult Blood-Urine 25 /ul (Negative); Protein-Dipstick 100 mg/dl (Negative); Urine Bilirubin Dipstick Negative (Negative); Urine Clarity Clear (Clear); Urine Urobilinogen Normal (Normal)
[2020-12-15 02:04] LABS: Red Blood Cells-Urine 5-10 SEEN /hpf (0-5); Squamous Epithelial Cells - UA 0-5 SEEN /hpf (5-10); White Blood Cells 0-5 SEEN /hpf (0-5)
--- NOTE | 2020-12-15 02:36 | ECHOD_ITS ---
Reason For Study: CHF Procedure This was a 2D Doppler, Color Flow transthoracic echocardiogram. Exam performed portable in ICU/CCU. Left Ventricle Normal LV size. Severe concentric left ventricular hypertrophy. Left ventricular systolic function is normal. The estimated ejection fraction is 55 %. There is evidence of diastolic dysfunction. No regional wall motion abnormalities noted. Right Ventricle Normal RV size. Normal systolic function. Atria The left atrium is mildly enlarged. Normal right atrium. No doppler evidence for ASD. Mitral Valve There is moderate to severe mitral annular calcification. Extension of the mitral annular calcification onto the posterior mitral valve leaflet. Mild diffuse mitral valve thickening. Mild (1+) mitral valve insufficiency. Tricuspid Valve Normal tricuspid valve. Trivial tricuspid valve insufficiency. Unable to estimate RV systolic pressure due to insufficient tricuspid regurgitant envelope. Aortic Valve Trisinus/trileaflet aortic valve. Mild diffuse aortic valve thickening. Pulmonic Valve The pulmonic valve is not well visualized. Great Vessels The aortic root is not well visualized. Pericardium/Pleural Small pericardial effusion. There are no echocardiographic indications of cardiac tamponade. Echolucency c/w a pleural effusion. MMode/2D Measurements & Calculations LVIDd: 4.5 cm IVSd: 1.8 cm LA dimension: 4.0 cm LVIDs: 3.3 cm LVPWd: 1.8 cm RVDd: 3.9 cm FS: 26.3 % LAV(MOD-sp4): 66.1 ml LA A4 area: 22.5 cm2 RA A4 area: 17.1 cm2 Time Measurements MV dec time: 0.30 sec Doppler Measurements & Calculations MV E max mando: 143.8 cm/sec Lat Peak E' Mando: 4.3 cm/sec Med Peak E' Mando: 4.8 cm/sec MV A max mando: 121.6 cm/sec E/E' lat: 33.7 E/E' med: 29.7 MV E/A: 1.2 MV V2 max: 159.9 cm/sec MV P1/2t max mando: 160.8 cm/sec Ao V2 max: 141.1 cm/sec MV max P.2 mmHg MV P1/2t: 92.1 msec Ao max P.0 mmHg MV V2 mean: 92.6 cm/sec MV dec slope: 511.6 cm/sec2 MV mean P.9 mmHg MVA(P1/2t): 2.4 cm2 MV V2 VTI: 47.9 cm LV V1 max: 106.6 cm/sec PA V2 max: 92.5 cm/sec LV V1 max P.5 mmHg ECHO/Echo Complete Interpretation Summary Left ventricular systolic function is normal. The estimated ejection fraction is 55 %. Severe concentric left ventricular hypertrophy. The left atrium is mildly enlarged. There is moderate to severe mitral annular calcification. Extension of the mitral annular calcification onto the posterior mitral valve l eaflet. Mild diffuse mitral valve thickening. Mild (1+) mitral valve insufficiency. Trivial tricuspid valve insufficiency. Mild diffuse aortic valve thickening. Small pericardial effusion. There are no echocardiographic indications of cardiac tamponade. Echolucency c/w a pleural effusion. Unable to estimate RV systolic pressure due to insufficient tricuspid regurgita nt envelope. There is evidence of diastolic dysfunction. Ordering Physician: Yanelis Park Referring Physician: [facility] Performed By: Jaime Gold RCS
[2020-12-15 02:53] LABS: Magnesium 2.5 mg/dL (1.6-2.6)
[2020-12-15 03:20] LABS: Procalcitonin 0.21 ng/mL (0.00-0.09)
[2020-12-15 05:25] LABS: Reflex Lactate? Y
[2020-12-15 05:44] LABS: Absolute Lymphocyte Count 1.29 X10^3/uL (0.83-4.51); Absolute Neutrophil Count 10.1 X10^3/uL (2.0-7.7); Basophil# 0.03 X10^3/uL; Basophil% 0.2 % (0-1); Eosinophil# 0.01 X10^3/uL; Eosinophils% 0.1 % (0-5); Hematocrit 29.8 % (37-47); Hemoglobin 9.4 g/dL (12.0-15.0); Lymphocyte # 1.29 X10^3/ul (0.83-4.51); Lymphocyte % 10.4 % (19-41); Mean Corp Hgb Conc 31.5 g/dL (32-36); Mean Corpuscular Hgb 30.5 pg (27.0-32.0); Mean Corpuscular Volume 96.8 fL (81-99); Mean Platelet Vol. 9.4 fl (6.2-12.0); Monocyte# 0.92 X10^3/uL; Monocyte% 7.4 % (0-10); NRBC Flagged by Analyzer 0 % (0-5); Neutrophil # 10.05 X10^3/uL (2.7-7.7); Neutrophil % 81.3 % (47-70); Platelet Count 346 K/mm3 (150-450); RBC Distribution Width CV 13.6 % (11.6-14.6); RBC Distribution Width SD 48.2 fl (35.1-43.9); Red Blood Count 3.08 M/mm3 (4.2-5.4); White Blood Count 12.4 K/mm3 (4.4-11.0)
--- NOTE | 2020-12-15 05:46 | CON.PCM_ITS ---
Reason for Consult Date of Consultation: 12/15/20 Reason for Consultation: Acute hypoxemic respiratory failure History of Present Illness: The patient is a 65-year-old female, with a history as outlined below, who presented to the emergency department on December 15 with complaints of progressive shortness of breath and chest pain. The patient had just recently underwent a low-dose CT screening of her chest on December 10 due to a history of tobacco dependency, which did reveal bilateral pleural effusions with associated atelectasis. The patient does have a notable smoking history and continues to smoke 3 to 5 cigarettes/day. She denies any prior cardiac or pulmonary diagnoses. She has never been seen by a photographic process worker, nor has she ever completed pulmonary function studies. She does not utilize supplemental oxygen or inhalers at her baseline. On presentation to the emergency department, the patient was noted to be afebrile but was notably tachycardic, tachypneic and hypoxemic. Laboratory evaluation revealed an elevated white blood cell count to 13,000. Platelet count was elevated to 515,000. Coagulation profile was within normal limits. Chemistry profile was notable for a creatinine of 1.52. Lactate was elevated to 2.9. AST was increased to 85, ALT of 79 and alkaline phosphatase of 146. Troponin was increased to 0.078 with a an elevated BNP of 1080. Urine analysis was unremarkable. Chest x-ray once again confirmed the presence of bilateral pleural effusions and increased interstitial opacities. The patient was subsequently placed on BiPAP therapy. Arterial blood gas obtained on BiPAP revealed a pH of 7.38 with a corresponding PCO2 of 45 and PO2 of 61. The patient received sublingual nitroglycerin and was started on IV Lasix. She was subsequently admitted to the medical intensive care unit for further management. Past Medical History Past Medical History (Chronic Problems): Chronic Problems Chronic anemia (Chronic) Chronic kidney disease, stage III (moderate) (Chronic) Diabetes mellitus, type II (Chronic) Hypertension (Chronic) Hyperlipidemia (Chronic) Tobacco use (Chronic) Allergies No Known Allergies Allergy (Verified 12/15/20 01:09) Home Medications: Ambulatory Orders Medication Instructions Recorded Atorvastatin Calcium [Lipitor] 10 mg PO QHS 12/15/20 Ferrous Sulfate 325 mg PO DAILY 12/15/20 Glimepiride 4 mg PO DAILY 12/15/20 Lisinopril [Zestril] 20 mg PO DAILY 12/15/20 Metformin HCl [Metformin HCl ER] 500 mg PO BID 12/15/20 Surgical History: - - Tonsillectomy, cryosurgery, left breast biopsy x2. Psychiatric History: No pertinent psych hx STOCK HOLDER History: No pertinent STOCK HOLDER history Lives: Alone Smoking Status: Current every day smoker - Patient with ongoing approximately 3 cigarette tobacco usage per day but prior to this she had been 1 pack/day cigarette tobacco usage since she been a teenager but has been cutting back. Tobacco Use: Cigarettes Alcohol: None Drugs: None - *Family History Maternal History Items: Heart Disease Paternal History Items: Diabetes Review of Systems Constitutional: Denies: Chills, Fever Eyes: Denies: Blurred vision, Double vision HEENT: Denies: Head Aches, Sinus Congestion, Sinus Drainage Cardiovascular: Reports: Chest Pain, Chest Pressure, Edema Respiratory: Reports: Shortness of Breath Gastrointestinal: Denies: Abdominal Pain, Nausea, Vomiting Genitourinary: Denies: Dysuria Musculoskeletal: Denies: Joint Pain, Joint Tenderness Skin: Denies: Rash, Wounds Neurological: Denies: Numbness, Tingling, Focal weakness Psychiatric: Denies: Anxiety, Depression, Homicidal Ideations, Suicidal Ideations Hematologic/ Lymphatic: Reports: Anemia Patient Problems: Active and Suspected Problems Acute respiratory failure with hypoxia (Acute) Acute decompensated heart failure (Acute) Hypertensive urgency (Acute) Elevated LFTs (Acute) Elevated troponin (Acute) Objective: The patient's most recent lab work, culture data and imaging studies have all been personally reviewed. Rapid coronavirus antigen testing was negative. Blood cultures are pending. - Physical Exam Vitals/I&O's: Vital Signs Temp Pulse Resp BP Pulse Ox 97.6 F L 73 17 157/67 H 100 12/15/20 03:10 12/15/20 05:25 12/15/20 05:25 12/15/20 04:00 12/15/20 05:25 Oxygen Flow Rate (L/min) 50 Oxygen Delivery Method Bi-pap Weight: 131 lb 2.801 oz Body Mass Index (BMI) 24.7 Intake and Output for Last 24 Hours 12/13/20 12/14/20 12/15/20 23:59 23:59 23:59 Intake Total 2.9 / 2.9 Balance 2.9 / 2.9 General: Alert, Cooperative, No apparent distress HEENT: Atraumatic, PERRLA, Normocephalic Oral: Dry Mucosa Neck: Supple, No Nodes, Trachea Midline Lungs: Diminished, Rales Cardiovascular: Regular rate, Regular Rhythm Abdomen: Bowel Sounds Present, Soft, Non Tender Extremities: No clubbing, No cyanosis, - - + Bilateral lower extremity pitting edema Skin: No breakdown Musculoskeletal: No Tenderness to Palpation of Joints or Extremities Lymphatic: No Cervical, Supraclavicular, or Inguinal Adenopathy Neurological: Cranial nerves II-XII grossly intact, Neuro grossly intact Psych/Mental Status: Normal Affect, Appropriate Labs (Last 48 Hours) 12/15/20 12/15/20 12/15/20 01:10 01:15 01:15 WBC 13.7 H RBC 3.85 L Hgb 11.5 L Hct 37.6 MCV 97.7 MCH 29.9 MCHC 30.6 L RDW Std Deviation 48.6 H RDW Coeff of Lurdes 13.6 Plt Count 515 H MPV 9.4 Immature Gran % (Auto) 0.800 Neut % (Auto) 56.3 Lymph % (Auto) 31.7 Mcminn % (Auto) 9.9 Eos % (Auto) 0.8 Baso % (Auto) 0.5 Absolute Neuts (auto) 7.7 Absolute Lymphs (auto) 4.33 Nucleated RBC % 0 PT 12.0 INR 1.0 Specimen Type Sample Site pH Bicarbonate Actual Total CO2 Base Excess O2 Saturation O2 % ABG pCO2 ABG pO2 Storm Test Respiration Rate O2 Delivery Device POC PEEP POC Pressure Suppt Sodium Potassium Chloride Carbon Dioxide Anion Gap BUN Creatinine Estim Creat Clear Calc Est GFR (MDRD) Af Amer Est GFR (MDRD) Non-Af BUN/Creatinine Ratio Glucose Hemoglobin A1c Lactic Acid Calcium Magnesium Total Bilirubin AST ALT Alkaline Phosphatase Troponin I B-Natriuretic Peptide Total Protein Albumin Globulin Albumin/Globulin Ratio Triglycerides Cholesterol LDL Cholesterol VLDL Cholesterol HDL Cholesterol Procalcitonin TSH Free T4 Urine Color Urine Clarity Urine pH Ur Specific Bradshaw Urine Protein Urine Glucose (UA) Urine Ketones Urine Occult Blood Urine Nitrite Urine Bilirubin Urine Urobilinogen Ur Leukocyte Esterase Urine RBC Urine WBC Ur Squamous Epith Cells Urine Bacteria Urine Mucus POC Glucose 418 H 12/15/20 12/15/20 12/15/20 01:15 01:15 01:15 WBC RBC Hgb Hct MCV MCH MCHC RDW Std Deviation RDW Coeff of Lurdes Plt Count MPV Immature Gran % (Auto) Neut % (Auto) Lymph % (Auto) Mcminn % (Auto) Eos % (Auto) Baso % (Auto) Absolute Neuts (auto) Absolute Lymphs (auto) Nucleated RBC % PT INR Specimen Type Sample Site pH Bicarbonate Actual Total CO2 Base Excess O2 Saturation O2 % ABG pCO2 ABG pO2 Storm Test Respiration Rate O2 Delivery Device POC PEEP POC Pressure Suppt Sodium 141 Potassium 4.0 Chloride 107 Carbon Dioxide 29.0 Anion Gap 5 BUN 31 H Creatinine 1.52 H Estim Creat Clear Calc 35.46 Est GFR (MDRD) Af Amer 44 L Est GFR (MDRD) Non-Af 37 L BUN/Creatinine Ratio 20.4 H Glucose 439 H Hemoglobin A1c Lactic Acid 2.9 H* Calcium 9.5 Magnesium Total Bilirubin 0.30 AST 85 H ALT 79 H Alkaline Phosphatase 146 H Troponin I 0.078 H B-Natriuretic Peptide 1079.6 H Total Protein 7.2 Albumin 3.1 L Globulin 4.1 Albumin/Globulin Ratio 0.8 L Triglycerides Cholesterol LDL Cholesterol VLDL Cholesterol HDL Cholesterol Procalcitonin TSH Free T4 Urine Color Urine Clarity Urine pH Ur Specific Bradshaw Urine Protein Urine Glucose (UA) Urine Ketones Urine Occult Blood Urine Nitrite Urine Bilirubin Urine Urobilinogen Ur Leukocyte Esterase Urine RBC Urine WBC Ur Squamous Epith Cells Urine Bacteria Urine Mucus POC Glucose 12/15/20 12/15/20 12/15/20 01:15 01:15 01:44 WBC RBC Hgb Hct MCV MCH MCHC RDW Std Deviation RDW Coeff of Lurdes Plt Count MPV Immature Gran % (Auto) Neut % (Auto) Lymph % (Auto) Mcminn % (Auto) Eos % (Auto) Baso % (Auto) Absolute Neuts (auto) Absolute Lymphs (auto) Nucleated RBC % PT INR Specimen Type ART Sample Site L Radial pH 7.38 Bicarbonate Actual 26.9 H Total CO2 28 Base Excess 2 O2 Saturation 90 L O2 % 50 ABG pCO2 45.7 H ABG pO2 61 L Storm Test Positive Respiration Rate 12 O2 Delivery Device BiPAP POC PEEP 6 POC Pressure Suppt 10 Sodium Potassium Chloride Carbon Dioxide Anion Gap BUN Creatinine Estim Creat Clear Calc Est GFR (MDRD) Af Amer Est GFR (MDRD) Non-Af BUN/Creatinine Ratio Glucose Hemoglobin A1c Lactic Acid Calcium Magnesium 2.5 Total Bilirubin AST ALT Alkaline Phosphatase Troponin I B-Natriuretic Peptide Total Protein Albumin Globulin Albumin/Globulin Ratio Triglycerides Cholesterol LDL Cholesterol VLDL Cholesterol HDL Cholesterol Procalcitonin 0.21 H TSH Free T4 Urine Color Urine Clarity Urine pH Ur Specific [place] Urine Protein Urine Glucose (UA) Urine Ketones Urine Occult Blood Urine Nitrite Urine Bilirubin Urine Urobilinogen Ur Leukocyte Esterase Urine RBC Urine WBC Ur Squamous Epith Cells Urine Bacteria Urine Mucus POC Glucose 12/15/20 12/15/20 12/15/20 01:50 05:20 05:20 WBC 12.4 H RBC 3.08 L Hgb 9.4 L Hct 29.8 L MCV 96.8 MCH 30.5 MCHC 31.5 L RDW Std Deviation 48.2 H RDW Coeff of Lurdes 13.6 Plt Count 346 MPV 9.4 Immature Gran % (Auto) 0.600 Neut % (Auto) 81.3 H Lymph % (Auto) 10.4 L Mcminn % (Auto) 7.4 Eos % (Auto) 0.1 Baso % (Auto) 0.2 Absolute Neuts (auto) 10.1 H Absolute Lymphs (auto) 1.29 Nucleated RBC % 0 PT INR Specimen Type Sample Site pH Bicarbonate Actual Total CO2 Base Excess O2 Saturation O2 % ABG pCO2 ABG pO2 Storm Test Respiration Rate O2 Delivery Device POC PEEP POC Pressure Suppt Sodium Pending Potassium Pending Chloride Pending Carbon Dioxide Pending Anion Gap Pending BUN Pending Creatinine Pending Estim Creat Clear Calc Est GFR (MDRD) Af Amer Pending Est GFR (MDRD) Non-Af Pending BUN/Creatinine Ratio Pending Glucose Pending Hemoglobin A1c Lactic Acid Calcium Pending Magnesium Total Bilirubin Pending AST Pending ALT Pending Alkaline Phosphatase Pending Troponin I Pending B-Natriuretic Peptide Total Protein Pending Albumin Pending Globulin Albumin/Globulin Ratio Triglycerides Pending Cholesterol Pending LDL Cholesterol Pending VLDL Cholesterol Pending HDL Cholesterol Pending Procalcitonin TSH Pending Free T4 Pending Urine Color Yellow Urine Clarity Clear Urine pH 6.0 Ur Specific Bradshaw 1.020 Urine Protein 100 H Urine Glucose (UA) 1000 H Urine Ketones Negative Urine Occult Blood 25 H Urine Nitrite Negative Urine Bilirubin Negative Urine Urobilinogen Normal Ur Leukocyte Esterase Negative Urine RBC 5-10 SEEN Urine WBC 0-5 SEEN Ur Squamous Epith Cells 0-5 SEEN Urine Bacteria 0 SEEN Urine Mucus 0 SEEN POC Glucose 12/15/20 12/15/20 05:20 05:20 WBC RBC Hgb Hct MCV MCH MCHC RDW Std Deviation RDW Coeff of Lurdes Plt Count MPV Immature Gran % (Auto) Neut % (Auto) Lymph % (Auto) Mcminn % (Auto) Eos % (Auto) Baso % (Auto) Absolute Neuts (auto) Absolute Lymphs (auto) Nucleated RBC % PT INR Specimen Type Sample Site pH Bicarbonate Actual Total CO2 Base Excess O2 Saturation O2 % ABG pCO2 ABG pO2 Storm Test Respiration Rate O2 Delivery Device POC PEEP POC Pressure Suppt Sodium Potassium Chloride Carbon Dioxide Anion Gap BUN Creatinine Estim Creat Clear Calc Est GFR (MDRD) Af Amer Est GFR (MDRD) Non-Af BUN/Creatinine Ratio Glucose Hemoglobin A1c Pending Lactic Acid Pending Calcium Magnesium Total Bilirubin AST ALT Alkaline Phosphatase Troponin I B-Natriuretic Peptide Total Protein Albumin Globulin Albumin/Globulin Ratio Triglycerides Cholesterol LDL Cholesterol VLDL Cholesterol HDL Cholesterol Procalcitonin TSH Free T4 Urine Color Urine Clarity Urine pH Ur Specific [place] Urine Protein Urine Glucose (UA) Urine Ketones Urine Occult Blood Urine Nitrite Urine Bilirubin Urine Urobilinogen Ur Leukocyte Esterase Urine RBC Urine WBC Ur Squamous Epith Cells Urine Bacteria Urine Mucus POC Glucose Microbiology 12/15/20 Unknown Nasal Secretion SARS-CoV-2 Antigen (Rapid) - Final Clinical Impression(s) from Imaging Studies Chest X-Ray 12/15/20 01:06 IMPRESSION: Developing CHF. Electronically Signed: Darrel Hoover MD at 1:40 EDT Tel , Service support , Current Medications Acetaminophen (Acetaminophen 325 Mg Tablet) 650 mg PO Q6H PRN PRN PRN Reason: Pain Score 1-10/Temp > 100.7 F Al Hydroxide/Mg Hydroxide (Mag Hydrox/Al Hydrox/Simeth 30 Ml Udc) 30 ml PO Q6H PRN PRN PRN Reason: Gastric Burning Albuterol Sulfate (Albuterol 2.5 Mg/3 Ml Vial.Neb.) 2.5 mg INHALATION Q2H PRN PRN PRN Reason: Dyspnea, wheezing Atorvastatin Calcium (Atorvastatin Calcium 10 Mg Tablet) 10 mg PO QHS [facility] Carvedilol (Carvedilol 6.25 Mg Tablet) 6.25 mg PO BID [facility]ELIA Enoxaparin Sodium (Enoxaparin 40 Mg/0.4 Ml Syringe) 40 mg SC DAILY [facility] Famotidine (Famotidine 20 Mg Tablet) 20 mg PO BID [facility] Ferrous Sulfate (Ferrous S[facility]ate 325 Mg Tablet) [facility] Furosemide (Furosemide 40 Mg/4 Ml Vial) 40 mg IV BID@1000,1800 [facility] Guaifenesin (Guaifenesin 10 Ml Udc (200mg/10ml)) 10 ml PO Q4H PRN PRN PRN Reason: COUGH Hydralazine HCl (Hydralazine 20 Mg/Ml Vial) 10 mg IV Q4H PRN PRN PRN Reason: SBP > 160 Nitroglycerin/Dextrose () 250 mls @ 6 mls/hr CONT INF .[id number] [facility]; Protocol Last Titration: 12/15/20 02:27 Dose: 20 mcg/min, 12 mls/hr Documented by: Sodium Chloride () 250 mls @ 15 mls/hr IV .[id number] PRN PRN Reason: Saline Flush Insulin Human Lispro (Insulin Lispro 100 Unit/Ml Insuln.Pen) 0 unit SC Q6 [facility]; Protocol Lisinopril (Lisinopril 20 Mg Tablet) 20 mg PO DAILY [facility] Magnesium Hydroxide (Magnesium Hydroxide 30 Ml Udc) 30 ml PO DAILY PRN PRN PRN Reason: Constipation Morphine Sulfate (Morphine 2 Mg/Ml Syringe) 2 mg IV Q3H PRN PRN PRN Reason: Pain Score 6-10 Ondansetron HCl (Ondansetron 4 Mg/2 Ml Vial) 4 mg IV Q8H PRN PRN PRN Reason: NAUSEA/VOMITING Prochlorperazine Edisylate (Prochlorperazine 10 Mg/2 Ml Vial) 5 mg IV Q4H PRN PRN PRN Reason: Breakthrough Nausea/Vomiting Psyllium Hydrophilic Mucilloid (Psyllium 1 Packet) 1 packet PO DAILY PRN PRN PRN Reason: Constipation Senna/Docusate Sodium (Senna/Docusate Sodium 1 Tablet) 2 tablet PO BID PRN PRN PRN Reason: Constipation Sodium Chloride (0.9% Saline Lock 10 Ml Syringe) 10 - 40 ml IV UD PRN PRN Reason: SALINE FLUSH Throat Lozenges (Benzocaine/Menthol 1 Lozenge) 1 lozenge MUCOUS MEM Q2H PRN PRN PRN Reason: SORE THROAT Assessment/Plan Active and Suspected Problems Acute respiratory failure with hypoxia (Acute) Acute decompensated heart failure (Acute) Hypertensive urgency (Acute) Elevated LFTs (Acute) Elevated troponin (Acute) RECOMMENDATIONS: 1. Wean patient from BiPAP to nasal cannula supplemental oxygen. Goal to maintain saturations at or above 90%. 2. Continue nitro infusion and diuretic therapy per cardiology recommendations. 3. Obtain echocardiogram. 4. Continue as needed bronchodilator therapy. 5. Outpatient pulmonary follow-up is recommended. IMPRESSIONS: 1. Acute hypoxemic respiratory failure The patient initially presented to the hospital with worsening shortness of breath, chest pain and hypoxemia. Subsequent work-up revealed bilateral pleural effusions along with a troponin elevation and elevated BNP, suggestive of acute decompensated heart failure. The patient was initially placed on BiPAP therapy and administered IV diuretic therapy. Her oxygenation status has improved as of this morning. Plan to continue to wean supplemental O2 to maintain saturations at or above 90%. Continue diuretic therapy as tolerated. Continue as needed bronchodilators. 2. Chest pain/troponin elevation Initial presenting EKG was without any acute changes. Cardiology has been consulted to evaluate the patient. Continue primary medical management per thei r recommendations. Await results of echocardiogram. 3. Chronic tobacco dependency I personally spent 4 minutes discussing the deleterious effects of continued tobacco use with the patient, including modalities which could be utilized to achieve a smoke-free lifestyle. The patient has declined nicotine replacement therapy at the current time. I would recommend that she follow-up on an outpatient basis following discharge in the pulmonary medicine clinic so that baseline PFTs can be obtained. 4. Hypertension/hyperlipidemia/diabetes mellitus Complicates care, management, recovery and prognosis. Initiate sliding scale insulin coverage. This note was generated with [employer] dictation software. It may contain incorrect words, spelling, and punctuation that were not noted in checking the note before signing. Inpatient E&M: 51188 Init Hosp L3 - Behavior Interventions Behavior Intervention: 21209 Smoking Cessation 3-10 min
--- NOTE | 2020-12-15 05:55 | RAD_ITS ---
STUDY: X-RAY CHEST REASON FOR EXAM: Female, 65 years old. Dyspnea, cough TECHNIQUE: Single AP portable view of the chest. COMPARISON: 12/15/2020 FINDINGS: The lungs are clear and expanded. No change in the small bilateral pleural effusions with bibasilar atelectasis. There is moderate cardiac enlargement. Normal mediastinum and sammi. Normal visualized pulmonary arteries. Normal visualized aortic arch and descending thoracic aorta. Normal visualized thoracic spine. Normal visualized ribs, clavicles, and shoulders. There is no demonstrated abnormality of the visualized soft tissue structures of the upper abdomen. RAD/Chest 1 View (Portable) IMPRESSION: No change from 12/15/2020. Electronically Signed: Sharad Augustin MD at 9:10 EDT Tel , Service support ,
[2020-12-15 06:11] LABS: ALB/GLOB Ratio 0.8 RATIO (0.9-2.4); AST(SGOT) 44 U/L (15-37); Alanine Aminotransfer ALT/SGPT 63 U/L (13-56); Albumin, Serum 2.4 g/dL (3.2-5.0); Alkaline Phosphatase 112 U/L (45-117); Anion Gap 4 (5-15); BUN 29 mg/dL (7-18); BUN/Creat Ratio 22.3 RATIO (10-20); Calcium,Total 8.3 mg/dL (8.5-10.1); Chloride 112 mmol/L (98-107); Cholesterol 145 mg/dL (200); EST Glomerular Filtration Rate 44 mL/min (>60); Est Glom Filt Rate - Afr Amer 53 mL/min (>60); Estimated Creatinine Clearance 33.42 ml/min; Globulin 2.9 g/dL (2.2-4.2); Glucose 318 mg/dL (74-106); High Density Lipoprotein 69 mg/dL; Protein, Total 5.3 g/dL (6.4-8.2); Sodium Level 144 mmol/L (136-145); T4 Free Direct 1.09 ng/dL (0.76-1.46); Thyroid Stim Hormone (TSH) 2.79 uIU/mL (0.358-3.74); Triglycerides 99 mg/dL; Very Low Density Lipoprotein 20 mg/dL (5-40)
[2020-12-15] MEDS: Insulin Lispro 100 UNIT/ML INSULN.PEN SC (07:00)
--- NOTE | 2020-12-15 07:37 | PCM.HOSP.N ---
Hospitalist Note This 62-year-old female admitted for shortness of breath for more than 1 week along with respiratory distress,scant cough, tachypnea and hypoxia 82% on room air. Patient put on nonrebreather which was transitioned to BiPAP. Patient had low-dose CT screening on 12/10 which showed bilateral pleural effusion, right more than left along with underlying atelectasis. Lactic acid elevated 2.9, leukocytosis with left shift, thrombocytopenia. BNP 1080. ABG showed 7.3 . As per ER physician she was given nitroglycerin and started on Lasix. UA shows proteinuria and glucosuria but no pyuria, RBC 5-10 cells. Blood pressure and heart rate in acceptable limit. Pulse ox 99%, on BiPAP 30% Lungs: Air entry diminished. Bilateral rhonchi and crepitations present Heart: S1-S2 regular, sinus rhythm SEARCH ENGINE OPTIMIZER: No focal neurological deficit. AAOx3 Assessment and plan, H&P reviewed. Restoration Technician/pulmonary consult reviewed Acute hypoxic respiratory failure due to acute on chronic heart failure, unclear type, etiology and class and bilateral pleural effusion. On IV diuretics treatment Atypical chest pain with elevated troponin probably related to heart failure and respiratory failure: Electrical Technology Instructor is consulted. Troponin 0 0.078, 0.194. BNP 1079.
[2020-12-15 08:31] LABS: Hemoglobin A1c 11.1 % (3.8-5.6)
[2020-12-15] MEDS: Enoxaparin 40 MG/0.4 ML Syringe SC (10:09)
[2020-12-15] MEDS: Ferrous Sulfate 325 MG Tablet PO (10:09)
[2020-12-15] MEDS: Famotidine 20 MG Tablet PO ×2 (10:09→21:02)
[2020-12-15] MEDS: Carvedilol 6.25 MG Tablet PO ×2 (10:10→21:02)
[2020-12-15] MEDS: Lisinopril 20 MG Tablet PO ×2 (10:10→20:17)
[2020-12-15] MEDS: 0.9% Saline Lock 10 ML Syringe IV ×2 (12:22→18:20)
[2020-12-15 12:36] LABS: Bedside Glucose 156 mg/dL (70-110)
[2020-12-15] MEDS: guaiFENesin 10 ML UDC (200MG/10ML) PO (16:17)
--- NOTE | 2020-12-15 16:42 | NURSING ---
education re chronic illness deferred till acute illness resolving
[2020-12-15 18:26] LABS: Bedside Glucose 64 mg/dL (70-110)
[2020-12-15] MEDS: Nitroglycerin Infusion 250 ML 30 MG CONT INF (19:26)
--- NOTE | 2020-12-15 19:45 | CON.PCM_ITS ---
Reason for Consult Date of Consultation: 12/15/20 Reason for Consultation: CHF History of Present Illness: Patient is a 65-year-old female with history of smoking who presents to the emergency department with significant shortness of breath and lower extremity edema.Patient's blood pressure was also significant elevated. Patient was admitted to the ICU. She was started on a nitro drip and also given Lasix. She responded very well and her shortness of breath is significantly better. Review of systems: All systems reviewed. All else is negative except that in HPI. Past Medical History Allergies/Adverse Reactions: Allergies No Known Allergies Allergy (Verified 12/15/20 01:09) Home Medications: Ambulatory Orders Medication Instructions Recorded Atorvastatin Calcium [Lipitor] 10 mg PO QHS 12/15/20 Ferrous Sulfate 325 mg PO DAILY 12/15/20 Glimepiride 4 mg PO DAILY 12/15/20 Lisinopril [Zestril] 20 mg PO DAILY 12/15/20 Metformin HCl [Metformin HCl ER] 500 mg PO BID 12/15/20 Past Medical History (Chronic Problems): Chronic Problems Chronic anemia (Chronic) Chronic kidney disease, stage III (moderate) (Chronic) Diabetes mellitus, type II (Chronic) Hypertension (Chronic) Hyperlipidemia (Chronic) Tobacco use (Chronic) Surgical History: - - Tonsillectomy, cryosurgery, left breast biopsy x2. Psychiatric History: No pertinent psych hx RELOCATION MANAGER History: No pertinent RELOCATION MANAGER history - *Family History Maternal History Items: Heart Disease Paternal History Items: Diabetes Lives: Alone Smoking Status: Current every day smoker Tobacco Use: Cigarettes Alcohol: None Drugs: None Objective: Vital Signs Temp Pulse Resp BP Pulse Ox 98.2 F 76 31 H 178/79 H 94 12/15/20 16:00 12/15/20 17:00 12/15/20 17:00 12/15/20 18:45 12/15/20 17:00 Oxygen Flow Rate (L/min) 2 Oxygen Delivery Method Nasal Cannula Weight: 131 lb 2.801 oz Body Mass Index (BMI) 24.7 Intake and Output for Last 24 Hours 12/13/20 12/14/20 12/15/20 23:59 23:59 23:59 Intake Total 670.0 / 670.0 Output Total 1850 / 1850 Balance -1180.0 / -1180.0 General: Awake, Alert, Oriented x 3 HEENT: Atraumatic Oral: Moist Mucosa Neck: Supple Lungs: Expiratory Wheezes-Idris Cardiovascular: Regular Rhythm Extremities: Bilateral Edema +1 Skin: No Rashes Psych/Mental Status: Appropriate 12/15/20 01:10: POC Glucose 418 H 12/15/20 01:15: WBC 13.7 H, RBC 3.85 L, Hgb 11.5 L, Hct 37.6, MCV 97.7, MCH 29.9, MCHC 30.6 L, RDW Std Deviation 48.6 H, RDW Coeff of [place]ur[place] 13.6, Plt Count 515 H, MPV 9.4, Immature Gran % (Auto) 0.800, Neut % (Auto) 56.3, Lymph % (Auto) 31.7, [place] % (Auto) 9.9, Eos % (Auto) 0.8, Baso % (Auto) 0.5, Absolute Neuts (auto) 7.7, Absolute Lymphs (auto) 4.33, Nucleated RBC % 0 12/15/20 01:15: PT 12.0, INR 1.0 12/15/20 01:15: Sodium 141, Potassium 4.0, Chloride 107, Carbon Dioxide 29.0, Anion Gap 5, BUN 31 H, Creatinine 1.52 H, Estim Creat Clear Calc 35.46, Est GFR (MDRD) Af Amer 44 L, Est GFR (MDRD) Non-Af 37 L, BUN/Creatinine Ratio 20.4 H, Glucose 439 H, Calcium 9.5, Total Bilirubin 0.30, AST 85 H, ALT 79 H, Alkaline Phosphatase 146 H, Troponin I 0.078 H, Total Protein 7.2, Albumin 3.1 L, Globulin 4.1, Albumin/Globulin Ratio 0.8 L 12/15/20 01:15: Lactic Acid 2.9 H* 12/15/20 01:15: B-Natriuretic Peptide 1079.6 H 12/15/20 01:15: Magnesium 2.5 12/15/20 01:15: Procalcitonin 0.21 H 12/15/20 01:44: Specimen Type ART, Sample Site L Radial, pH 7.38, Bicarbonate Actual 26.9 H, Total CO2 28, Base Excess 2, O2 Saturation 90 L, O2 % 50, ABG pCO2 45.7 H, ABG pO2 61 L, Storm Test Positive, Respiration Rate 12, O2 Delivery Device BiPAP, POC PEEP 6, POC Pressure Suppt 10 12/15/20 01:50: Urine Color Yellow, Urine Clarity Clear, Urine pH 6.0, Ur Specific [place] 1.020, Urine Protein 100 H, Urine Glucose (UA) 1000 H, Urine Ketones Negative, Urine Occult Blood 25 H, Urine Nitrite Negative, Urine Bilirubin Negative, Urine Urobilinogen Normal, Ur Leukocyte Esterase Negative, Urine RBC 5-10 SEEN, Urine WBC 0-5 SEEN, Ur Squamous Epith Cells 0-5 SEEN, Urine Bacteria 0 SEEN, Urine Mucus 0 SEEN 12/15/20 05:20: WBC 12.4 H, RBC 3.08 L, Hgb 9.4 L, Hct 29.8 L, MCV 96.8, MCH 30.5, MCHC 31.5 L, RDW Std Deviation 48.2 H, RDW Coeff of [place]ur[place] 13.6, Plt Count 346, MPV 9.4, Immature Gran % (Auto) 0.600, Neut % (Auto) 81.3 H, Lymph % (Auto) 10.4 L, [place] % (Auto) 7.4, Eos % (Auto) 0.1, Baso % (Auto) 0.2, Absolute Neuts (auto) 10.1 H, Absolute Lymphs (auto) 1.29, Nucleated RBC % 0 12/15/20 05:20: Sodium 144, Potassium 4.0, Chloride 112 H, Carbon Dioxide 28.0, Anion Gap 4 L, BUN 29 H, Creatinine 1.30 H, Estim Creat Clear Calc 33.42, Est GFR (MDRD) Af Amer 53 L, Est GFR (MDRD) Non-Af 44 L, BUN/Creatinine Ratio 22.3 H , Glucose 318 H, Calcium 8.3 L, Total Bilirubin 0.30, AST 44 H, ALT 63 H, Alkaline Phosphatase 112, Troponin I 0.194 H, Total Protein 5.3 L, Albumin 2.4 L , Globulin 2.9, Albumin/Globulin Ratio 0.8 L, Triglycerides 99, Cholesterol 145, LDL Cholesterol 56, VLDL Cholesterol 20, HDL Cholesterol 69, TSH 2.79, Free T4 1.09 12/15/20 05:20: Hemoglobin A1c 11.1 H 12/15/20 05:20: Lactic Acid 2.0 12/15/20 12:05: POC Glucose 156 H 12/15/20 18:12: POC Glucose 64 L Rhythm: EKG: ECHO: Stress Test: Cardiac Cath: PCI: CT Surgery: Holter monitor: EPS: PPM: CXR: Chest CT Scan: Assessment/Plan 1. Shortness of breath: Appears to be secondary to CHF. This could be secondary to uncontrolled hypertension. Coreg has been added to patient's regimen. I would also go up on the lisinopril. Nitroglycerin will be adjusted to keep the systolic blood pressure around 160 mmHg. Agree with checking a 2D echo. 2. Elevated troponin: Patient's troponin is borderline elevated. Patient has chest pain on deep inspiration. Could be related to uncontrolled hypertension and hypoxemia related to CHF. If patient's EF is significantly decreased then she may need coronary angiogram. If EF is preserved then she can get a stress test as an outpatient.
[2020-12-15] MEDS: TITRATION PARAMETER CHANGE 1 EACH IV (20:16)
[2020-12-15] MEDS: Atorvastatin Calcium 10 MG Tablet PO (21:02)
[2020-12-15 23:56] LABS: Bedside Glucose 151 mg/dL (70-110)
[2020-12-16] VITALS (37 sets, daily range): BP systolic 123–194; BP diastolic 49–81; PULSE 63–88; RESP 12–29; TEMP 36.6–37.3; O2SAT 93–100
[2020-12-16] MEDS: Nitroglycerin Infusion 250 ML 30 MG CONT INF (01:58)
[2020-12-16 04:01] LABS: Bedside Glucose 169 mg/dL (70-110)
[2020-12-16 04:06] LABS: Absolute Lymphocyte Count 2.41 X10^3/uL (0.83-4.51); Absolute Neutrophil Count 8.9 X10^3/uL (2.0-7.7); Basophil# 0.03 X10^3/uL; Basophil% 0.2 % (0-1); Eosinophil# 0.12 X10^3/uL; Eosinophils% 0.9 % (0-5); Hematocrit 29.4 % (37-47); Hemoglobin 9.3 g/dL (12.0-15.0); Lymphocyte # 2.41 X10^3/ul (0.83-4.51); Lymphocyte % 19.1 % (19-41); Mean Corp Hgb Conc 31.6 g/dL (32-36); Mean Corpuscular Hgb 29.9 pg (27.0-32.0); Mean Corpuscular Volume 94.5 fL (81-99); Mean Platelet Vol. 9.5 fl (6.2-12.0); Monocyte% 8.7 % (0-10); NRBC Flagged by Analyzer 0 % (0-5); Neutrophil # 8.94 X10^3/uL (2.7-7.7); Neutrophil % 70.8 % (47-70); Platelet Count 345 K/mm3 (150-450); RBC Distribution Width CV 13.3 % (11.6-14.6); Red Blood Count 3.11 M/mm3 (4.2-5.4); White Blood Count 12.6 K/mm3 (4.4-11.0)
[2020-12-16 04:19] LABS: Anion Gap 4 (5-15); BUN 23 mg/dL (7-18); BUN/Creat Ratio 15.9 RATIO (10-20); Calcium,Total 8.3 mg/dL (8.5-10.1); Chloride 105 mmol/L (98-107); Creatinine, Serum 1.45 mg/dL (0.55-1.02); EST Glomerular Filtration Rate 39 mL/min (>60); Est Glom Filt Rate - Afr Amer 47 mL/min (>60); Estimated Creatinine Clearance 29.97 ml/min; Glucose 159 mg/dL (74-106); Potassium 3.8 mmol/L (3.5-5.1); Sodium Level 141 mmol/L (136-145)
--- NOTE | 2020-12-16 07:13 | PCM.PN.INT ---
Subjective: Patient did well overnight. Patient did have to be on BiPAP overnight secondary to concerns for sleep apnea, but has been tolerating 2 L nasal cannula during the day. Nitroglycerin drip is much improved after initiation of p.o. medications. Patient reports that she feels weak, but is not reporting any dyspnea while on BiPAP therapy. Objective: Echocardiogram has not been completed General: Alert, Oriented x3, Cooperative, No apparent distress, Well developed, Well nourished, - - No conversational dyspnea on BiPAP HEENT: Atraumatic, PERRLA, EOMI, Normocephalic, - - Slight scleral injection without icterus Oral: No Gingival or Mucosal Lesions/ Ulcerations, Dry Mucosa Neck: Supple, No JVD, No Nodes, Trachea Midline Lungs: No wheeze, Rhonchi - Right greater than left, - - Symmetric expansion Cardiovascular: Regular rate, Regular Rhythm, Normal S1, Normal S2, No murmurs, No rub noted, No Gallop Abdomen: Bowel Sounds Present, Soft, Non Tender, Non-Distended, No Hepato-splenomegaly Extremities: No clubbing, No cyanosis, Edema - Bilateral lower extremities Skin: No rashes, No breakdown Musculoskeletal: No Tenderness to Palpation of Joints or Extremities Lymphatic: No Cervical, Supraclavicular, or Inguinal Adenopathy Neurological: Cranial nerves II-XII grossly intact, Neuro grossly intact, Motor Exam 5/5 strength throughout Psych/Mental Status: Alert and oriented to time, place, person, mood and affect Vital Signs Temp Pulse Resp BP Pulse Ox 36.6 C 69 23 H 148/55 H 98 12/16/20 04:00 12/16/20 06:00 12/16/20 06:00 12/16/20 06:00 12/16/20 06:00 Oxygen Flow Rate (L/min) 2 Oxygen Delivery Method Bi-pap Weight: 57.2 kg Body Mass Index (BMI) 24.7 Intake and Output for Last 24 Hours 12/14/20 12/15/20 12/16/20 23:59 23:59 23:59 Intake Total 860.5 / 896.5 159.0 / 159.0 Output Total 2750 / 3150 800 / 800 Balance -1889.5 / -2253.5 -641.0 / -641.0 Labs (Last 48 Hours) 12/15/20 12/15/20 12/15/20 01:10 01:15 01:15 WBC 13.7 H RBC 3.85 L Hgb 11.5 L Hct 37.6 MCV 97.7 MCH 29.9 MCHC 30.6 L RDW Std Deviation 48.6 H RDW Coeff of [place]ur[place] 13.6 Plt Count 515 H MPV 9.4 Immature Gran % (Auto) 0.800 Neut % (Auto) 56.3 Lymph % (Auto) 31.7 [place] % (Auto) 9.9 Eos % (Auto) 0.8 Baso % (Auto) 0.5 Absolute Neuts (auto) 7.7 Absolute Lymphs (auto) 4.33 Nucleated RBC % 0 PT 12.0 INR 1.0 Specimen Type Sample Site pH Bicarbonate Actual Total CO2 Base Excess O2 Saturation O2 % ABG pCO2 ABG pO2 Storm Test Respiration Rate O2 Delivery Device POC PEEP POC Pressure Suppt Sodium Potassium Chloride Carbon Dioxide Anion Gap BUN Creatinine Estim Creat Clear Calc Est GFR (MDRD) Af Amer Est GFR (MDRD) Non-Af BUN/Creatinine Ratio Glucose Hemoglobin A1c Lactic Acid Calcium Magnesium Total Bilirubin AST ALT Alkaline Phosphatase Troponin I B-Natriuretic Peptide Total Protein Albumin Globulin Albumin/Globulin Ratio Triglycerides Cholesterol LDL Cholesterol VLDL Cholesterol HDL Cholesterol Procalcitonin TSH Free T4 Urine Color Urine Clarity Urine pH Ur Specific [place] Urine Protein Urine Glucose (UA) Urine Ketones Urine Occult Blood Urine Nitrite Urine Bilirubin Urine Urobilinogen Ur Leukocyte Esterase Urine RBC Urine WBC Ur Squamous Epith Cells Urine Bacteria Urine Mucus POC Glucose 418 H 12/15/20 12/15/20 12/15/20 01:15 01:15 01:15 WBC RBC Hgb Hct MCV MCH MCHC RDW Std Deviation RDW Coeff of [place]ur[place] Plt Count MPV Immature Gran % (Auto) Neut % (Auto) Lymph % (Auto) [place] % (Auto) Eos % (Auto) Baso % (Auto) Absolute Neuts (auto) Absolute Lymphs (auto) Nucleated RBC % PT INR Specimen Type Sample Site pH Bicarbonate Actual Total CO2 Base Excess O2 Saturation O2 % ABG pCO2 ABG pO2 Storm Test Respiration Rate O2 Delivery Device POC PEEP POC Pressure Suppt Sodium 141 Potassium 4.0 Chloride 107 Carbon Dioxide 29.0 Anion Gap 5 BUN 31 H Creatinine 1.52 H Estim Creat Clear Calc 35.46 Est GFR (MDRD) Af Amer 44 L Est GFR (MDRD) Non-Af 37 L BUN/Creatinine Ratio 20.4 H Glucose 439 H Hemoglobin A1c Lactic Acid 2.9 H* Calcium 9.5 Magnesium Total Bilirubin 0.30 AST 85 H ALT 79 H Alkaline Phosphatase 146 H Troponin I 0.078 H B-Natriuretic Peptide 1079.6 H Total Protein 7.2 Albumin 3.1 L Globulin 4.1 Albumin/Globulin Ratio 0.8 L Triglycerides Cholesterol LDL Cholesterol VLDL Cholesterol HDL Cholesterol Procalcitonin TSH Free T4 Urine Color Urine Clarity Urine pH Ur Specific [place] Urine Protein Urine Glucose (UA) Urine Ketones Urine Occult Blood Urine Nitrite Urine Bilirubin Urine Urobilinogen Ur Leukocyte Esterase Urine RBC Urine WBC Ur Squamous Epith Cells Urine Bacteria Urine Mucus POC Glucose 12/15/20 12/15/20 12/15/20 01:15 01:15 01:44 WBC RBC Hgb Hct MCV MCH MCHC RDW Std Deviation RDW Coeff of Lurdes Plt Count MPV Immature Gran % (Auto) Neut % (Auto) Lymph % (Auto) [place] % (Auto) Eos % (Auto) Baso % (Auto) Absolute Neuts (auto) Absolute Lymphs (auto) Nucleated RBC % PT INR Specimen Type ART Sample Site L Radial pH 7.38 Bicarbonate Actual 26.9 H Total CO2 28 Base Excess 2 O2 Saturation 90 L O2 % 50 ABG pCO2 45.7 H ABG pO2 61 L Storm Test Positive Respiration Rate 12 O2 Delivery Device BiPAP POC PEEP 6 POC Pressure Suppt 10 Sodium Potassium Chloride Carbon Dioxide Anion Gap BUN Creatinine Estim Creat Clear Calc Est GFR (MDRD) Af Amer Est GFR (MDRD) Non-Af BUN/Creatinine Ratio Glucose Hemoglobin A1c Lactic Acid Calcium Magnesium 2.5 Total Bilirubin AST ALT Alkaline Phosphatase Troponin I B-Natriuretic Peptide Total Protein Albumin Globulin Albumin/Globulin Ratio Triglycerides Cholesterol LDL Cholesterol VLDL Cholesterol HDL Cholesterol Procalcitonin 0.21 H TSH Free T4 Urine Color Urine Clarity Urine pH Ur Specific [place] Urine Protein Urine Glucose (UA) Urine Ketones Urine Occult Blood Urine Nitrite Urine Bilirubin Urine Urobilinogen Ur Leukocyte Esterase Urine RBC Urine WBC Ur Squamous Epith Cells Urine Bacteria Urine Mucus POC Glucose 12/15/20 12/15/20 12/15/20 01:50 05:20 05:20 WBC 12.4 H RBC 3.08 L Hgb 9.4 L Hct 29.8 L MCV 96.8 MCH 30.5 MCHC 31.5 L RDW Std Deviation 48.2 H RDW Coeff of [place]ur[place] 13.6 Plt Count 346 MPV 9.4 Immature Gran % (Auto) 0.600 Neut % (Auto) 81.3 H Lymph % (Auto) 10.4 L [place] % (Auto) 7.4 Eos % (Auto) 0.1 Baso % (Auto) 0.2 Absolute Neuts (auto) 10.1 H Absolute Lymphs (auto) 1.29 Nucleated RBC % 0 PT INR Specimen Type Sample Site pH Bicarbonate Actual Total CO2 Base Excess O2 Saturation O2 % ABG pCO2 ABG pO2 Storm Test Respiration Rate O2 Delivery Device POC PEEP POC Pressure Suppt Sodium 144 Potassium 4.0 Chloride 112 H Carbon Dioxide 28.0 Anion Gap 4 L BUN 29 H Creatinine 1.30 H Estim Creat Clear Calc 33.42 Est GFR (MDRD) Af Amer 53 L Est GFR (MDRD) Non-Af 44 L BUN/Creatinine Ratio 22.3 H Glucose 318 H Hemoglobin A1c Lactic Acid Calcium 8.3 L Magnesium Total Bilirubin 0.30 AST 44 H ALT 63 H Alkaline Phosphatase 112 Troponin I 0.194 H B-Natriuretic Peptide Total Protein 5.3 L Albumin 2.4 L Globulin 2.9 Albumin/Globulin Ratio 0.8 L Triglycerides 99 Cholesterol 145 LDL Cholesterol 56 VLDL Cholesterol 20 HDL Cholesterol 69 Procalcitonin TSH 2.79 Free T4 1.09 Urine Color Yellow Urine Clarity Clear Urine pH 6.0 Ur Specific [place] 1.020 Urine Protein 100 H Urine Glucose (UA) 1000 H Urine Ketones Negative Urine Occult Blood 25 H Urine Nitrite Negative Urine Bilirubin Negative Urine Urobilinogen Normal Ur Leukocyte Esterase Negative Urine RBC 5-10 SEEN Urine WBC 0-5 SEEN Ur Squamous Epith Cells 0-5 SEEN Urine Bacteria 0 SEEN Urine Mucus 0 SEEN POC Glucose 12/15/20 12/15/20 12/15/20 05:20 05:20 12:05 WBC RBC Hgb Hct MCV MCH MCHC RDW Std Deviation RDW Coeff of [place]urdes Plt Count MPV Immature Gran % (Auto) Neut % (Auto) Lymph % (Auto) [place] % (Auto) Eos % (Auto) Baso % (Auto) Absolute Neuts (auto) Absolute Lymphs (auto) Nucleated RBC % PT INR Specimen Type Sample Site pH Bicarbonate Actual Total CO2 Base Excess O2 Saturation O2 % ABG pCO2 ABG pO2 Storm Test Respiration Rate O2 Delivery Device POC PEEP POC Pressure Suppt Sodium Potassium Chloride Carbon Dioxide Anion Gap BUN Creatinine Estim Creat Clear Calc Est GFR (MDRD) Af Amer Est GFR (MDRD) Non-Af BUN/Creatinine Ratio Glucose Hemoglobin A1c 11.1 H Lactic Acid 2.0 Calcium Magnesium Total Bilirubin AST ALT Alkaline Phosphatase Troponin I B-Natriuretic Peptide Total Protein Albumin Globulin Albumin/Globulin Ratio Triglycerides Cholesterol LDL Cholesterol VLDL Cholesterol HDL Cholesterol Procalcitonin TSH Free T4 Urine Color Urine Clarity Urine pH Ur Specific [place] Urine Protein Urine Glucose (UA) Urine Ketones Urine Occult Blood Urine Nitrite Urine Bilirubin Urine Urobilinogen Ur Leukocyte Esterase Urine RBC Urine WBC Ur Squamous Epith Cells Urine Bacteria Urine Mucus POC Glucose 156 H 12/15/20 12/15/20 12/16/20 18:12 23:50 03:45 WBC 12.6 H RBC 3.11 L Hgb 9.3 L Hct 29.4 L MCV 94.5 MCH 29.9 MCHC 31.6 L RDW Std Deviation 46.0 H RDW Coeff of [place]ur[place] 13.3 Plt Count 345 MPV 9.5 Immature Gran % (Auto) 0.300 Neut % (Auto) 70.8 H Lymph % (Auto) 19.1 [place] % (Auto) 8.7 Eos % (Auto) 0.9 Baso % (Auto) 0.2 Absolute Neuts (auto) 8.9 H Absolute Lymphs (auto) 2.41 Nucleated RBC % 0 PT INR Specimen Type Sample Site pH Bicarbonate Actual Total CO2 Base Excess O2 Saturation O2 % ABG pCO2 ABG pO2 Storm Test Respiration Rate O2 Delivery Device POC PEEP POC Pressure Suppt Sodium Potassium Chloride Carbon Dioxide Anion Gap BUN Creatinine Estim Creat Clear Calc Est GFR (MDRD) Af Amer Est GFR (MDRD) Non-Af BUN/Creatinine Ratio Glucose Hemoglobin A1c Lactic Acid Calcium Magnesium Total Bilirubin AST ALT Alkaline Phosphatase Troponin I B-Natriuretic Peptide Total Protein Albumin Globulin Albumin/Globulin Ratio Triglycerides Cholesterol LDL Cholesterol VLDL Cholesterol HDL Cholesterol Procalcitonin TSH Free T4 Urine Color Urine Clarity Urine pH Ur Specific [place] Urine Protein Urine Glucose (UA) Urine Ketones Urine Occult Blood Urine Nitrite Urine Bilirubin Urine Urobilinogen Ur Leukocyte Esterase Urine RBC Urine WBC Ur Squamous Epith Cells Urine Bacteria Urine Mucus POC Glucose 64 L 151 H 12/16/20 12/16/20 03:45 03:53 WBC RBC Hgb Hct MCV MCH MCHC RDW Std Deviation RDW Coeff of [place]ur[place] Plt Count MPV Immature Gran % (Auto) Neut % (Auto) Lymph % (Auto) [place] % (Auto) Eos % (Auto) Baso % (Auto) Absolute Neuts (auto) Absolute Lymphs (auto) Nucleated RBC % PT INR Specimen Type Sample Site pH Bicarbonate Actual Total CO2 Base Excess O2 Saturation O2 % ABG pCO2 ABG pO2 Storm Test Respiration Rate O2 Delivery Device POC PEEP POC Pressure Suppt Sodium 141 Potassium 3.8 Chloride 105 Carbon Dioxide 32.0 Anion Gap 4 L BUN 23 H Creatinine 1.45 H Estim Creat Clear Calc 29.97 Est GFR (MDRD) Af Amer 47 L Est GFR (MDRD) Non-Af 39 L BUN/Creatinine Ratio 15.9 Glucose 159 H Hemoglobin A1c Lactic Acid Calcium 8.3 L Magnesium Total Bilirubin AST ALT Alkaline Phosphatase Troponin I B-Natriuretic Peptide Total Protein Albumin Globulin Albumin/Globulin Ratio Triglycerides Cholesterol LDL Cholesterol VLDL Cholesterol HDL Cholesterol Procalcitonin TSH Free T4 Urine Color Urine Clarity Urine pH Ur Specific [place] Urine Protein Urine Glucose (UA) Urine Ketones Urine Occult Blood Urine Nitrite Urine Bilirubin Urine Urobilinogen Ur Leukocyte Esterase Urine RBC Urine WBC Ur Squamous Epith Cells Urine Bacteria Urine Mucus POC Glucose 169 H Microbiology 12/15/20 Unknown Nasal Secretion SARS-CoV-2 Antigen (Rapid) - Final Medical Necessity - Tobacco Use Smoking Status: Current every day smoker Tobacco Use: Cigarettes Assessment/Plan All Active Problems Acute respiratory failure with hypoxia (Acute) Acute decompensated heart failure (Acute) Hypertensive urgency (Acute) Elevated LFTs (Acute) Elevated troponin (Acute) RECOMMENDATIONS: 1. Wean patient from BiPAP to nasal cannula supplemental oxygen. Goal to maintain saturations at or above 90%. 2. Wean nitro infusion and diuretic therapy per cardiology recommendations. 3. Await echocardiogram. 4. Continue as needed bronchodilator therapy. 5. Outpatient pulmonary follow-up is recommended. 6. Okay to transfer from the intensive care unit from my perspective IMPRESSIONS: 1. Acute hypoxemic respiratory failure secondary to probable CHF Patient with shortness of breath, chest pain hypoxemia with elevated BNP and troponin. Clinical suspicion for acute decompensated heart failure. Echocardiogram is currently pending. Rapid improvement on IV diuretic therapy. Initiation of p.o. medications yesterday has led to a significant improvement in nitroglycerin requirements. 2. Chest pain/troponin elevation Initial presenting EKG was without any acute changes. Cardiology has been consulted to evaluate the patient. Continue primary medical management per their recommendations. Await results of echocardiogram. 3. Chronic tobacco dependency Clinical suspicion for a comorbid conditions such as COPD complicating overall course. Patient would need complete PFTs as an outpatient for quantification clarification of lung function. Did stress the importance of smoking cessation. 4. Hypertension/hyperlipidemia/diabetes mellitus Complicates care, management, recovery and prognosis. Continue sliding scale insulin coverage. Blood sugars are relatively controlled. Inpatient E&M: 07460 Subs Hosp L3
[2020-12-16 07:35] LABS: Bedside Glucose 149 mg/dL (70-110)
[2020-12-16] MEDS: Lisinopril 40 MG Tablet PO (07:45)
[2020-12-16] MEDS: Ferrous Sulfate 325 MG Tablet PO (07:45)
[2020-12-16] MEDS: 0.9% Saline Lock 10 ML Syringe IV ×5 (07:46→21:42)
[2020-12-16] MEDS: Furosemide 40 MG/4 ML Vial IV ×2 (07:46→18:03)
[2020-12-16] MEDS: Carvedilol 6.25 MG Tablet PO ×2 (07:46→10:27)
[2020-12-16] MEDS: Famotidine 20 MG Tablet PO ×2 (07:46→21:42)
--- NOTE | 2020-12-16 09:30 | PCM.PN.CARD ---
Subjectve: The patient is awake and alert. She states she feels better today. She denies any ongoing chest discomfort. She notes her breathing has improved. She also believes her lower extremity edema has improved. Objective: Vital Signs Temp Pulse Resp BP Pulse Ox 97.9 F 71 18 148/55 H 100 12/16/20 04:00 12/16/20 07:10 12/16/20 07:10 12/16/20 06:00 12/16/20 07:10 Oxygen Flow Rate (L/min) 3 Oxygen Delivery Method Nasal Cannula Weight: 126 lb 1.671 oz Body Mass Index (BMI) 24.7 Intake and Output for Last 24 Hours 12/14/20 12/15/20 12/16/20 23:59 23:59 23:59 Intake Total 860.5 / 896.5 159.0 / 159.0 Output Total 2750 / 3150 800 / 800 Balance -1889.5 / -2253.5 -641.0 / -641.0 General: Awake, Alert, Oriented x 3, Cooperative, No Acute Distress HEENT: Atraumatic, Normocephalic, PERRL, EOMI, Sclera Non Icteric Neck: Supple, Good ROM, No JVD Lungs: Rhonchi, Inspiratory Wheezes - Idris Cardiovascular: Regular Rhythm, Normal S1, Normal S2 Abdomen: Bowel Sounds Present, Soft Extremities: Mild RLE Edema, Mild LLE Edema Neurological: No Focal Motor or Sensory Deficit Psych/Mental Status: Appropriate 12/16/20 03:45: WBC 12.6 H, RBC 3.11 L, Hgb 9.3 L, Hct 29.4 L, MCV 94.5, MCH 29.9, MCHC 31.6 L, Plt Count 345, MPV 9.5, Immature Gran % (Auto) 0.300, Neut % (Auto) 70.8 H, Lymph % (Auto) 19.1, [place] % (Auto) 8.7, Eos % (Auto) 0.9, Baso % (Auto) 0.2, Absolute Neuts (auto) 8.9 H, Nucleated RBC % 0 12/16/20 03:45: Sodium 141, Potassium 3.8, Chloride 105, Carbon Dioxide 32.0, Anion Gap 4 L, BUN 23 H, Creatinine 1.45 H, Est GFR (MDRD) Af Amer 47 L, Est GFR (MDRD) Non-Af 39 L, BUN/Creatinine Ratio 15.9, Glucose 159 H, Calcium 8.3 L Rhythm: Sinus rhythm Medical Necessity - Tobacco Use Smoking Status: Current every day smoker Tobacco Use: Cigarettes Assessment/Plan 1. Abnormal cardiac enzymes The patient does have indeterminate troponins. Per previous medical records it appears this was thought to be related to concerns of her hypertension and a type II event. At the present time the patient is being followed. She is going through additional noninvasive cardiovascular evaluation. This will include an echocardiogram to evaluate her left ventricular wall motion systolic function. In the interim the patient will continue medical therapy. Depending upon her clinical course she may or may not need to be evaluated in the cardiac Foot Doctor. 2. CHF There was concern the patient had evidence of CHF. Again it is unclear as to the exact etiology. Based upon medical records there was concern this may been related to her hypertensive event. She is being monitored. She is continuing medical therapy. She is initiating noninvasive evaluation with an echocardiogram. 3. HTN The patient's blood pressures reported as improving. Her medications will be adjusted to help bring her pressures under better control. 4. Hyperlipidemia The patient will continue risk factor evaluation and care as deemed appropriate. 5. DM The patient will continue evaluation care per her primary care physician group. Comment: The patient's case has been discussed previously with Dr. Grimaldo. This note was generated using a voice recognition system and there may be incorrect words, spelling or punctuation that were not noted when reviewing the office note prior to saving.
--- NOTE | 2020-12-16 10:08 | CASEMGMT ---
RETA RODRIGES assessment: Face to Face with patient for initial transition planning/care coordination assessment. RETA RODRIGES introduced self and role at [facility], pt voices understanding and consents to assessment. Pt is sitting up in bed in no distress on room air. Pt is A/Ox4 and answers all questions appropriately. Care providers, pharmacy, and demographics verified. Presentation: Increased SOB Admitting dx: Acute resp failure, CHF exac, HTN urgency PCP: Bela Rivera Specialists: Beny cardio(sched to see in December) [facility]erred [facility]acy[facility] Insurance: [facility] A/B Prescription Benefit: Silver Rx-pt states also uses [facility] Living Will/HPOA: Pt states she has LW/HPOA and is aware that they are not on file at [facility]. Pt states her daughter, Linda Reaves, is HPOA. LNOK: Linda Reaves, daughter/HPOA; Rajesh Neff, brother Living Arrangements: Pt states lives alone in 2 story home with bedroom on 2nd floor and states is independent with ADL's. Transportation: Pt states drives self and states no transportation concerns. DME/HHC: Pt states has the following DME: cane, rails, grab bars, and shower chair. Pt states no need for any further DME. Pt states no hx of HHC or SNF in the past. Pt states no concerns with going home at time of discharge. 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 Pt states still smokes about 3 cigarettes daily and rarely drinks ETOH. Pt states no further concerns/needs. CM to follow PT/OT evals and for any further discharge planning/needs. Advised pt to ask for CM if any further questions/concerns/needs arise, voices understanding. Pt Goal: Home Plan[place] RETA RODRIGES
[2020-12-16] MEDS: Enoxaparin 40 MG/0.4 ML Syringe SC (10:26)
[2020-12-16] MEDS: Aspirin 81 MG TAB.CHEW PO (10:30)
[2020-12-16] MEDS: Insulin Lispro 100 UNIT/ML INSULN.PEN SC ×3 (11:37→21:45)
--- NOTE | 2020-12-16 12:00 | CASEMGMT ---
Social Work Nursing reporting pt has concerns with living situation. SW met with pt and discussed concerns. Pt [place] that [place]. Pt stating that neighbors are concerning and that police are around neighborhood a lot. SW inquired about looking into other housing options. Pt stating she owns her home in this neighborhood, therefore changing locations is not a reasonable option. Pt confirms that she has bolts on both doors and locks on windows as well as a new peep hole in the door which she states is helping as she now does not answer door if she does not recognize visitor. SW reminded pt to contact local law enforcement if she does not feel safe and pt confirms she is aware she can contact them and they are in neighborhood often. Pt appreciative of visit but denies any further needs at this time. JUDITH Leyva
--- NOTE | 2020-12-16 13:29 | NURSING ---
report called to PCU, Latanya RN, to PCU 127 per WC, ICU staff in attendance
--- NOTE | 2020-12-16 13:31 | PN_ITS ---
Patient Problems: Active and Suspected Problems Acute respiratory failure with hypoxia (Acute) Acute decompensated heart failure (Acute) Hypertensive urgency (Acute) Elevated LFTs (Acute) Elevated troponin (Acute) Subjective: breathing better. Decrease LE edema. Vitals/I&O's: Vital Signs Temp Pulse Resp BP Pulse Ox 37.1 C 73 20 H 152/63 H 96 12/16/20 12:00 12/16/20 12:00 12/16/20 12:00 12/16/20 12:00 12/16/20 12:00 Oxygen Flow Rate (L/min) 3 Oxygen Delivery Method Room Air Weight: 57.2 kg Body Mass Index (BMI) 24.7 Intake and Output for Last 24 Hours 12/14/20 12/15/20 12/16/20 23:59 23:59 23:59 Intake Total 860.5 / 896.5 525.0 / 525.0 Output Total 2750 / 3150 2150 / 2150 Balance -1889.5 / -2253.5 -1625.0 / -1625.0 General: Alert, No apparent distress HEENT: Atraumatic, Normocephalic Oral: Moist Mucosa, No Gingival or Mucosal Lesions/ Ulcerations Neck: No Nodes, Thyroid Normal Size and Texture Lungs: Clear to auscultation, Normal air movement, No rhonchi, No wheeze Cardiovascular: Regular rate, Regular Rhythm, Normal S1, Normal S2, No murmurs Abdomen: Bowel Sounds Present, Soft, Non Tender, Non-Distended, No Hepato- splenomegaly Extremities: No edema, No Calf Tenderness Skin: No rashes, No breakdown Psych/Mental Status: Normal Affect, Appropriate Microbiology Past 72 Hours 12/15/20 Unknown Nasal Secretion SARS-CoV-2 Antigen (Rapid) - Final Laboratory Results 12/15/20 18:12: POC Glucose 64 L 12/15/20 23:50: POC Glucose 151 H 12/16/20 03:45: WBC 12.6 H, RBC 3.11 L, Hgb 9.3 L, Hct 29.4 L, MCV 94.5, MCH 29.9, MCHC 31.6 L, RDW Std Deviation 46.0 H, RDW Coeff of Lurdes 13.3, Plt Count 345, MPV 9.5, Immature Gran % (Auto) 0.300, Neut % (Auto) 70.8 H, Lymph % (Auto) 19.1, Coffee % (Auto) 8.7, Eos % (Auto) 0.9, Baso % (Auto) 0.2, Absolute Neuts (auto) 8.9 H, Absolute Lymphs (auto) 2.41, Nucleated RBC % 0 12/16/20 03:45: Sodium 141, Potassium 3.8, Chloride 105, Carbon Dioxide 32.0, Anion Gap 4 L, BUN 23 H, Creatinine 1.45 H, Estim Creat Clear Calc 29.97, Est GFR (MDRD) Af Amer 47 L, Est GFR (MDRD) Non-Af 39 L, BUN/Creatinine Ratio 15.9, Glucose 159 H, Calcium 8.3 L 12/16/20 03:53: POC Glucose 169 H 12/16/20 07:28: POC Glucose 149 H Current Medications Acetaminophen (Acetaminophen 325 Mg Tablet) 650 mg PO Q6H PRN PRN PRN Reason: Pain Score 1-10/Temp > 100.7 F Al Hydroxide/Mg Hydroxide (Mag Hydrox/Al Hydrox/Simeth 30 Ml Udc) 30 ml PO Q6H PRN PRN PRN Reason: Gastric Burning Albuterol Sulfate (Albuterol 2.5 Mg/3 Ml Vial.Neb.) 2.5 mg INHALATION Q2H PRN PRN PRN Reason: Dyspnea, wheezing Aspirin (Aspirin 81 Mg Tab.Chew) 81 mg PO DAILY@0800 [facility] Last Admin: 12/16/20 10:30 Dose: 81 mg Documented by: Atorvastatin Calcium (Atorvastatin Calcium 10 Mg Tablet) 10 mg PO QHS [facility] Last Admin: 12/15/20 21:02 Dose: 10 mg Documented by: Carvedilol (Carvedilol 12.5 Mg Tablet) 12.5 mg PO BID [facility] Last Admin: 12/16/20 09:53 Dose: Not Given Documented by: Enoxaparin Sodium (Enoxaparin 40 Mg/0.4 Ml Syringe) 40 mg SC DAILY [facility] Last Admin: 12/16/20 10:26 Dose: 40 mg Documented by: Famotidine (Famotidine 20 Mg Tablet) 20 mg PO BID [facility] Last Admin: 12/16/20 07:46 Dose: 20 mg Documented by: Ferrous Sulfate ([facility] 325 Mg Tablet) [facility] Admin: 12/16/20 07:45 Dose: 325 mg Documented by: Furosemide (Furosemide 40 Mg/4 Ml Vial) 40 mg IV BID@1000,1800 [facility] Last Admin: 12/16/20 07:46 Dose: 40 mg Documented by: Guaifenesin (Guaifenesin 10 Ml Udc (200mg/10ml)) 10 ml PO Q4H PRN PRN PRN Reason: COUGH Last Admin: 12/15/20 16:17 Dose: 10 ml Documented by: Hydralazine HCl (Hydralazine 20 Mg/Ml Vial) 10 mg IV Q4H PRN PRN PRN Reason: SBP > 160 Sodium Chloride () 250 mls @ 15 mls/hr IV .[id number] PRN PRN Reason: Saline Flush Insulin Human Lispro (Insulin Lispro 100 Unit/Ml Insuln.Pen) 0 unit SC [facility]; Protocol Last Admin: 12/16/20 11:37 Dose: 6 units Documented by: Lisinopril (Lisinopril 40 Mg Tablet) 40 mg PO DAILY [facility] Last Admin: 12/16/20 07:45 Dose: 40 mg Documented by: Magnesium Hydroxide (Magnesium Hydroxide 30 Ml Udc) 30 ml PO DAILY PRN PRN PRN Reason: Constipation Nicotine (Nicotine 7 Mg Patch) 7 mg TD DAILY [facility] Last Admin: 12/16/20 10:25 Dose: 7 mg Documented by: Ondansetron HCl (Ondansetron 4 Mg/2 Ml Vial) 4 mg IV Q8H PRN PRN PRN Reason: NAUSEA/VOMITING Prochlorperazine Edisylate (Prochlorperazine 10 Mg/2 Ml Vial) 5 mg IV Q4H PRN PRN PRN Reason: Breakthrough Nausea/Vomiting Psyllium Hydrophilic Mucilloid (Psyllium 1 Packet) 1 packet PO DAILY PRN PRN PRN Reason: Constipation Senna/Docusate Sodium (Senna/Docusate Sodium 1 Tablet) 2 tablet PO BID PRN PRN PRN Reason: Constipation Sodium Chloride (0.9% Saline Lock 10 Ml Syringe) 10 - 40 ml IV UD PRN PRN Reason: SALINE FLUSH Last Admin: 12/16/20 10:27 Dose: 20 ml Documented by: Throat Lozenges (Benzocaine/Menthol 1 Lozenge) 1 lozenge MUCOUS MEM Q2H PRN PRN PRN Reason: SORE THROAT STROKE Vital Signs/Narrative: Vital Signs Temp Pulse Resp BP BP Pulse Ox 12/16/20 12:00 37.1 C 73 20 H 152/63 H 96 12/16/20 11:00 79 29 H 162/75 H 96 12/16/20 10:00 81 18 152/60 H 96 Medical Necessity - Tobacco Use Smoking Status: Current every day smoker Tobacco Use: Cigarettes Assessment/Plan All Active Problems Acute respiratory failure with hypoxia (Acute) Acute decompensated heart failure (Acute) Hypertensive urgency (Acute) Elevated LFTs (Acute) Elevated troponin (Acute) 1. acute hypoxic respiratory failure 2/2 CHF exacerbation improving and now on room air 2. acute HFpEF EF 55% on IV furosemide on lisinopril on carvedilol 3. Hypertensive emergency POA may have led to flash pulmonary edema 4. elevated troponins peaked at 0.194 may have been due to above cardiology following 5. VTE prophylaxis: LMWH TF out of ICU Inpatient E&M: 17812 Subs Hosp L2
--- NOTE | 2020-12-16 15:41 | CHAPLAIN ---
Type of Pastoral Visit _x__ Initial Visit ___ Follow-up Visit ___ On-call Visit ___ General Patient Visit ___ Spiritual Assessment ___ Family Conference ___ Bereavement ___ Rapid Response ___ Code Blue ___ Other (describe below) Pastoral Care Referral From ___ Patient ___ Family _x__ Nurse ___ Physician ___ Kitchenwhere Maker ___ Manager Retail ___ Other (describe below) Sacrament/Intervention _x__ Active listening ___ Anointing ___ Denominational ___ Bereavement ___ Communion ___ Luisa exploration ___ _x__ Life review _x__ Prayer ___ Reconciliation ___ Sacrament of Sick _x__ Supportive presence ___ Wedding ___ Other (describe below) Pastoral Comments HYDROMETEOROLOGICAL TECHNICIAN recommended visit to patient due to her anxiety and condition; pt talkative and receptive to support and prayers
[2020-12-16 16:55] LABS: Bedside Glucose 338 mg/dL (70-110)
[2020-12-16 17:36] LABS: Bedside Glucose 372 mg/dL (70-110)
[2020-12-16] MEDS: Carvedilol 12.5 MG Tablet PO (21:41)
[2020-12-16] MEDS: Atorvastatin Calcium 10 MG Tablet PO (21:42)
[2020-12-16 22:30] LABS: Bedside Glucose 347 mg/dL (70-110)
[2020-12-17] VITALS (10 sets, daily range): BP systolic 158–194; BP diastolic 51–89; PULSE 66–82; RESP 16–18; TEMP 36.6–36.9; O2SAT 94–96
[2020-12-17] MEDS: hydrALAZINE 20 MG/ML Vial 10 MG IV (03:30)
[2020-12-17] MEDS: Psyllium 1 PACKET PO (06:35)
[2020-12-17] MEDS: Insulin Lispro 100 UNIT/ML INSULN.PEN SC ×3 (06:43→16:12)
[2020-12-17 06:50] LABS: Bedside Glucose 263 mg/dL (70-110)
[2020-12-17 07:48] LABS: Anion Gap 7 (5-15); BUN 38 mg/dL (7-18); BUN/Creat Ratio 22.5 RATIO (10-20); Chloride 103 mmol/L (98-107); Creatinine, Serum 1.69 mg/dL (0.55-1.02); EST Glomerular Filtration Rate 32 mL/min (>60); Est Glom Filt Rate - Afr Amer 39 mL/min (>60); Estimated Creatinine Clearance 25.71 ml/min; Glucose 260 mg/dL (74-106); Potassium 3.4 mmol/L (3.5-5.1); Sodium Level 140 mmol/L (136-145)
[2020-12-17 07:51] LABS: Absolute Lymphocyte Count 2.05 X10^3/uL (0.83-4.51); Absolute Neutrophil Count 7.2 X10^3/uL (2.0-7.7); Basophil# 0.02 X10^3/uL; Basophil% 0.2 % (0-1); Eosinophil# 0.12 X10^3/uL; Eosinophils% 1.1 % (0-5); Hematocrit 31.8 % (37-47); Hemoglobin 10.2 g/dL (12.0-15.0); Lymphocyte # 2.05 X10^3/ul (0.83-4.51); Lymphocyte % 19.6 % (19-41); Mean Corp Hgb Conc 32.1 g/dL (32-36); Mean Corpuscular Hgb 30.1 pg (27.0-32.0); Mean Corpuscular Volume 93.8 fL (81-99); Mean Platelet Vol. 9.6 fl (6.2-12.0); Monocyte# 1.05 X10^3/uL; NRBC Flagged by Analyzer 0 % (0-5); Neutrophil # 7.17 X10^3/uL (2.7-7.7); Neutrophil % 68.6 % (47-70); Platelet Count 318 K/mm3 (150-450); RBC Distribution Width SD 44.5 fl (35.1-43.9); Red Blood Count 3.39 M/mm3 (4.2-5.4); White Blood Count 10.5 K/mm3 (4.4-11.0)
--- NOTE | 2020-12-17 09:30 | RDU_ITS ---
Reason For Study: HTN Right Renal Artery Left Renal Artery Right renal artery ostium Left renal artery ostium 94.2/12.1 389.7/33.8 RSV/EDV. PSV/EDV. Right renal artery proximal Left renal artery proximal PSV/EDV 328.7/29.9 PSV/EDV. 74.1/13.9 . Right renal artery mid 290.8/29.3 Left renal artery mid 101.5/8.4 PSV/EDV. PSV/EDV . Right renal artery distal Left renal artery distal 101.5/6.6 216.4/25.1 PSV/EDV. PSV/EDV. Right Renal Parenchyma Left Renal Parenchyma Upper Pole Medula 28.6/6.5 PSV/EDV. Left upper pole medulla 37.3/7.2 Right upper pole medulla EDR 0.23 . PSV/EDV . Right upper pole medulla R.I. Left upper pole medulla EDR 0.19 . 0.77 . Left upper pole medulla R.I. 0.81 . Upper Galileo Cortx 15.7/4.7 PSV/EDV. UP Cortex 17.3/5.4 PSV/EDV. Right upper pole cortex EDR 0.30 . Left upper pole cortex EDR 0.31 . Right upper pole cortex R.I. 0.70 . Left upper pole cortex R.I. 0.69 . Right lower Pole medulla 29.2/5.3 Left lower Pole medulla 26.4/4.5 PSV/EDV . PSV/EDV . Right lower pole medulla EDR 0.18 . Left lower pole medulla EDR 0.17 . Right lower pole medulla R.I. 0.2 . Left lower pole medulla R.I. 0.83 . Lower Pole Cortex 15.7/5.3 PSV/EDV. Lower Pole Cortx 20/6.3 PSV/EDV. Right lower pole cortex EDR 0.34 . Left lower pole cortex EDR 0.32 . Right lower pole cortex R.I. 0.66 . Left lower pole cortex R.I. 0.68 . Right Renal Hilar Left Renal Hilar Right Hilar avg 55.2/11.1 PSV/EDV. LT Hilar avg 75.6/13.1 PSV/EDV . Right hilar acceleration time 70 Left hilar acceleration time 50 m/sec. m/sec. Right Renal Dimensions Left Renal Dimensions Right kidney size 10.59 cm . Left kidney size 9.84 cm . Right cortical dimension 1.53 cm . Left cortical dimension 1.63 cm . Aorta Proximal abdominal aorta 1.33 x 1.29 cm . Proximal abdominal aorta peak systolic velocity is 123.5 cm/sec . Distal abdominal aorta 1.31 x 1.33 cm . Distal abdominal aorta peak systolic velocity is 112.5 cm/sec . VL/Renal Artery Duplex Ultrasound Interpretation Summary Maximal aortic diameter 1.33 x 1.29 cm proximally. Aortic velocity is greater than 100 cm/s flow in validating renal artery aortic ratios. Abnormal flow velocity right renal artery ostium, proximal, mid renal artery deutsch ggestive of greater than 60% stenosis. Less than 60% stenosis left renal artery Right kidney length 10.59 cm Left kidney length 9.84 cm Ordering Physician: Rajesh Novak Referring Physician: [facility] Performed By: Dayami Fairchild RVT
--- NOTE | 2020-12-17 09:33 | PCM.PN.CARD ---
Subjective Subjective: The patient is awake and alert. She states she is feeling better overall. However last night she states she still had some issues lying supine and being able to breathe comfortably. She states she had to sit up to breathe more comfortably as she felt full in her chest. Objective Data Objective Data Vital Signs: Vital Signs Temp Pulse Resp BP Pulse Ox 98.4 F 66 16 154/49 H 95 12/16/20 23:33 12/17/20 06:59 12/16/20 23:33 12/16/20 23:33 12/17/20 07:24 Oxygen Flow Rate (L/min) 3 Oxygen Delivery Method Room Air Weight: 126 lb 1.671 oz Body Mass Index (BMI) 24.7 Intake & Output: Intake and Output for Last 24 Hours 12/15/20 12/16/20 12/17/20 23:59 23:59 23:59 Intake Total 860.5 / 896.5 1005.0 / 1005.0 Output Total 2750 / 3150 3950 / 3950 Balance -1889.5 / -2253.5 -2945.0 / -2945.0 Lab / Micro Data Result Diagrams: 12/17/20 06:39 12/17/20 06:30 Labs: Laboratory Results - last 24 hr 12/16/20 12/16/20 12/16/20 11:36 16:47 21:30 WBC RBC Hgb Hct MCV MCH MCHC RDW Std Deviation RDW Coeff of Lurdes Plt Count MPV Immature Gran % (Auto) Neut % (Auto) Lymph % (Auto) [place] % (Auto) Eos % (Auto) Baso % (Auto) Absolute Neuts (auto) Absolute Lymphs (auto) Nucleated RBC % Sodium Potassium Chloride Carbon Dioxide Anion Gap BUN Creatinine Estim Creat Clear Calc Est GFR (MDRD) Af Amer Est GFR (MDRD) Non-Af BUN/Creatinine Ratio Glucose Calcium POC Glucose 372 H 338 H 347 H 12/17/20 12/17/20 12/17/20 06:30 06:39 06:43 WBC 10.5 RBC 3.39 L Hgb 10.2 L Hct 31.8 L MCV 93.8 MCH 30.1 MCHC 32.1 RDW Std Deviation 44.5 H RDW Coeff of Lurdes 13.0 Plt Count 318 MPV 9.6 Immature Gran % (Auto) 0.500 Neut % (Auto) 68.6 Lymph % (Auto) 19.6 [place] % (Auto) 10.0 Eos % (Auto) 1.1 Baso % (Auto) 0.2 Absolute Neuts (auto) 7.2 Absolute Lymphs (auto) 2.05 Nucleated RBC % 0 Sodium 140 Potassium 3.4 L Chloride 103 Carbon Dioxide 30.0 Anion Gap 7 BUN 38 H Creatinine 1.69 H Estim Creat Clear Calc 25.71 Est GFR (MDRD) Af Amer 39 L Est GFR (MDRD) Non-Af 32 L BUN/Creatinine Ratio 22.5 H Glucose 260 H Calcium 8.0 L POC Glucose 263 H Micro: Microbiology 12/15/20 01:40 Blood Culture (Wb) - Left Hand Blood Culture - Preliminary No growth in 48 hours. 12/15/20 01:15 Blood Culture (Wb) - Anticubital Right Blood Culture - Preliminary No growth in 48 hours. 12/15/20 Unknown Nasal Secretion SARS-CoV-2 Antigen (Rapid) - Final Radiography Diagnostic Testing: Radiology Impression Echocardiogram 12/15/20 02:36 Interpretation Summary Left ventricular systolic function is normal. The estimated ejection fraction is 55 %. Severe concentric left ventricular hypertrophy. The left atrium is mildly enlarged. There is moderate to severe mitral annular calcification. Extension of the mitral annular calcification onto the posterior mitral valve leaflet. Mild diffuse mitral valve thickening. Mild (1+) mitral valve insufficiency. Trivial tricuspid valve insufficiency. Mild diffuse aortic valve thickening. Small pericardial effusion. There are no echocardiographic indications of cardiac tamponade. Echolucency c/w a pleural effusion. Unable to estimate RV systolic pressure due to insufficient tricuspid regurgitant envelope. There is evidence of diastolic dysfunction. Ordering Physician: Yanelis Park Referring Physician: [facility] ([place], [place]) Performed By: Jaime Gold RCS Rhythm Strip Rhythm Strip: Sinus Rhythm Rate: 90 Ectopy: None Physical Exam Const alert and oriented x3 Orientation / Consciousness: awake HEENT normocephalic and head/scalp atraumatic Eyes PERRL and EOMs intact bilaterally Neck full ROM and supple Chest inspection of chest normal Resp normal respiratory effort Auscultation: diminished lung sounds localized (Bases) Cardio regular rate and regular rhythm Palpation: normal PMI Rate: regular rate Rhythm: regular rhythm Heart Sounds: S1 normal and S2 normal GI normal to inspection, nondistended, normoactive bowel sounds Extremity General Extremity: edema bilateral lower extremity Details: trace 12/17/20 06:30: Sodium 140, Potassium 3.4 L, Chloride 103, Carbon Dioxide 30.0, Anion Gap 7, BUN 38 H, Creatinine 1.69 H, Est GFR (MDRD) Af Amer 39 L, Est GFR (MDRD) Non-Af 32 L, BUN/Creatinine Ratio 22.5 H, Glucose 260 H, Calcium 8.0 L 12/17/20 06:39: WBC 10.5, RBC 3.39 L, Hgb 10.2 L, Hct 31.8 L, MCV 93.8, MCH 30.1, MCHC 32.1, Plt Count 318, MPV 9.6, Immature Gran % (Auto) 0.500, Neut % (Auto) 68.6, Lymph % (Auto) 19.6, [place] % (Auto) 10.0, Eos % (Auto) 1.1, Baso % (Auto) 0.2, Absolute Neuts (auto) 7.2, Nucleated RBC % 0 Rhythm: Sinus rhythm/sinus bradycardia Assessment & Plan Assessment/Plan (1) Hypertensive urgency: Status: Acute Code(s): I16.0 - Hypertensive urgency Plan: The patient's blood pressure does appear to be coming under better control. Her beta-william dose was increased to assist with this. However she was noted to have evidence earlier this morning of sinus bradycardia/marked sinus bradycardia. Thus her beta-william dose will be decreased. She may need adjustment of other antihypertensive regimen that will not affect her underlying cardiac rate to assist with blood pressure control. She will also be asked to have a renal artery duplex study to evaluate for any obvious renal artery stenosis that would contribute to her hypertensive event. (2) Acute decompensated heart failure: Status: Acute Code(s): I50.9 - Heart failure, unspecified Plan: She was thought to have acute CHF. Based upon her cardiovascular diagnostic studies this would be CHF with preserved ejection fraction. She does appear to be improving overall. However she still had symptoms concerning for orthopnea last night. Thus she will need to continue diuretic therapy although her diuretic dose will have to be adjusted to try and assist with her fluid balance as well as monitoring her renal function at the same time. (3) Elevated troponin: Status: Acute Code(s): R77.8 - Other specified abnormalities of plasma proteins Plan: She did have abnormal cardiac enzymes. This may be a type II event secondary to her hypertension. Hopefully as she improves with respect to her respiratory status she can go through at minimum a pharmacologic stress nuclear imaging study to screen for any obvious evidence of CAD that would require further evaluation and care. (4) Hyperlipidemia: Status: Chronic Code(s): E78.5 - Hyperlipidemia, unspecified Qualifiers: Hyperlipidemia type: unspecified Qualified Code(s): E78.5 - Hyperlipidemia, unspecified Plan: She should continue risk factor evaluation care as deemed appropriate. Addt'l Comments The patient's case was discussed and reviewed with the patient and Dr. Youngblood.
[2020-12-17] MEDS: Carvedilol 6.25 MG Tablet PO ×2 (09:53→20:42)
[2020-12-17] MEDS: Enoxaparin 40 MG/0.4 ML Syringe SC (09:53)
[2020-12-17] MEDS: Ferrous Sulfate 325 MG Tablet PO (09:53)
[2020-12-17] MEDS: Aspirin 81 MG TAB.CHEW PO (09:53)
[2020-12-17] MEDS: Furosemide 40 MG/4 ML Vial IV (09:53)
[2020-12-17] MEDS: Famotidine 20 MG Tablet PO ×2 (09:54→20:43)
[2020-12-17] MEDS: Lisinopril 40 MG Tablet PO (09:54)
[2020-12-17] MEDS: 0.9% Saline Lock 10 ML Syringe IV ×2 (09:59→20:58)
--- NOTE | 2020-12-17 10:55 | PCM.PN.INT ---
Subjective Subjective: Patient did okay overnight. Patient transferred out of the intensive care unit yesterday and reported that she was doing okay. Patient did have some episodes of waking up dyspneic with palpitations. Patient has been able to walk to the bathroom independently. Patient is not reporting any syncope or near syncope events. Objective Data Objective Data Echocardiogram shows severe LVH with an EF of 55% and diastolic dysfunction. Mild mitral valve insufficiency noted, but unable to quantify pulmonary artery pressures. Vital Signs: Vital Signs Temp Pulse Resp BP Pulse Ox 36.8 C 72 18 158/59 H 96 12/17/20 10:00 12/17/20 10:00 12/17/20 10:00 12/17/20 10:00 12/17/20 10:00 Oxygen Flow Rate (L/min) 3 Oxygen Delivery Method Room Air Weight: 57.2 kg Body Mass Index (BMI) 24.7 Intake & Output: Intake and Output for Last 24 Hours 12/15/20 12/16/20 12/17/20 23:59 23:59 23:59 Intake Total 860.5 / 896.5 1005.0 / 1005.0 Output Total 2750 / 3150 3950 / 3950 Balance -1889.5 / -2253.5 -2945.0 / -2945.0 Lab / Micro Data Result Diagrams: 12/17/20 06:39 12/17/20 06:30 Labs: Laboratory Results - last 24 hr 12/16/20 12/16/20 12/16/20 11:36 16:47 21:30 WBC RBC Hgb Hct MCV MCH MCHC RDW Std Deviation RDW Coeff of Lurdes Plt Count MPV Immature Gran % (Auto) Neut % (Auto) Lymph % (Auto) [place] % (Auto) Eos % (Auto) Baso % (Auto) Absolute Neuts (auto) Absolute Lymphs (auto) Nucleated RBC % Sodium Potassium Chloride Carbon Dioxide Anion Gap BUN Creatinine Estim Creat Clear Calc Est GFR (MDRD) Af Amer Est GFR (MDRD) Non-Af BUN/Creatinine Ratio Glucose Calcium POC Glucose 372 H 338 H 347 H 12/17/20 12/17/20 12/17/20 06:30 06:39 06:43 WBC 10.5 RBC 3.39 L Hgb 10.2 L Hct 31.8 L MCV 93.8 MCH 30.1 MCHC 32.1 RDW Std Deviation 44.5 H RDW Coeff of Lurdes 13.0 Plt Count 318 MPV 9.6 Immature Gran % (Auto) 0.500 Neut % (Auto) 68.6 Lymph % (Auto) 19.6 [place] % (Auto) 10.0 Eos % (Auto) 1.1 Baso % (Auto) 0.2 Absolute Neuts (auto) 7.2 Absolute Lymphs (auto) 2.05 Nucleated RBC % 0 Sodium 140 Potassium 3.4 L Chloride 103 Carbon Dioxide 30.0 Anion Gap 7 BUN 38 H Creatinine 1.69 H Estim Creat Clear Calc 25.71 Est GFR (MDRD) Af Amer 39 L Est GFR (MDRD) Non-Af 32 L BUN/Creatinine Ratio 22.5 H Glucose 260 H Calcium 8.0 L POC Glucose 263 H Micro: Microbiology 12/15/20 01:40 Blood Culture (Wb) - Left Hand Blood Culture - Preliminary No growth in 48 hours. 12/15/20 01:15 Blood Culture (Wb) - Anticubital Right Blood Culture - Preliminary No growth in 48 hours. 12/15/20 Unknown Nasal Secretion SARS-CoV-2 Antigen (Rapid) - Final Radiography Diagnostic Testing: Radiology Impression Echocardiogram 12/15/20 02:36 Interpretation Summary Left ventricular systolic function is normal. The estimated ejection fraction is 55 %. Severe concentric left ventricular hypertrophy. The left atrium is mildly enlarged. There is moderate to severe mitral annular calcification. Extension of the mitral annular calcification onto the posterior mitral valve leaflet. Mild diffuse mitral valve thickening. Mild (1+) mitral valve insufficiency. Trivial tricuspid valve insufficiency. Mild diffuse aortic valve thickening. Small pericardial effusion. There are no echocardiographic indications of cardiac tamponade. Echolucency c/w a pleural effusion. Unable to estimate RV systolic pressure due to insufficient tricuspid regurgitant envelope. There is evidence of diastolic dysfunction. Ordering Physician: Yanelis Park Referring Physician: [facility] Performed By: Jaime Gold RCS Rhythm Strip Rhythm Strip: Sinus Rhythm Rate: 90 Ectopy: None Physical Exam Const alert, oriented x3 and no apparent distress General Appearance: cooperative and well developed; Negative for ill appearing HEENT normocephalic, head/scalp atraumatic and moist oral mucous membranes Eyes PERRL, EOMs intact bilaterally and conjunctivae normal Neck full ROM Resp normal respiratory effort and no use of accessory muscles Effort and Inspection: able to speak in complete sentences and prolonged expiratory phase; Negative for actively coughing or uses accessory muscles Auscultation: diminished lung sounds; Negative for rales, rhonchi or wheezes Cardio regular rate, regular rhythm, S1 normal heart sound, S2 normal heart sound, no murmurs, no rub, no gallops and no JVD GI normal to inspection, nondistended, normoactive bowel sounds Extremity General Extremity: edema bilateral lower extremity; Negative for clubbing Skin no rashes or lesions noted Neuro oriented x3 and CN's II-XII intact bilaterally Psych cooperative Activity / Motor Behavior: restless Mood & Affect: anxious Assessment & Plan Assessment/Plan (1) Acute respiratory failure with hypoxia: Status: Acute Code(s): J96.01 - Acute respiratory failure with hypoxia (2) Acute decompensated heart failure: Status: Acute Code(s): I50.9 - Heart failure, unspecified (3) Hypertensive urgency: Status: Acute Code(s): I16.0 - Hypertensive urgency (4) Chronic anemia: Status: Chronic Code(s): D64.9 - Anemia, unspecified (5) Chronic kidney disease, stage III (moderate): Status: Chronic Code(s): N18.30 - Chronic kidney disease, stage 3 unspecified Qualifiers: Chronic kidney disease stage 3 subtype: unspecified whether 3a or 3b Qualified Code(s): N18.30 - Chronic kidney disease, stage 3 unspecified (6) Diabetes mellitus, type II: Status: Chronic Code(s): E11.9 - Type 2 diabetes mellitus without complications Qualifiers: Diabetes mellitus superintendent container terminal insulin use: without superintendent container terminal use Diabetes mellitus complication status: with other specified complication Qualified Code(s): E11.69 - Type 2 diabetes mellitus with other specified complication (7) Elevated LFTs: Status: Acute Code(s): R79.89 - Other specified abnormal findings of blood chemistry (8) Elevated troponin: Status: Acute Code(s): R77.8 - Other specified abnormalities of plasma proteins (9) Hypertension: Status: Chronic Code(s): I10 - Essential (primary) hypertension Qualifiers: Hypertension type: essential hypertension Qualified Code(s): I10 - Essential (primary) hypertension (10) Hyperlipidemia: Status: Chronic Code(s): E78.5 - Hyperlipidemia, unspecified Qualifiers: Hyperlipidemia type: unspecified Qualified Code(s): E78.5 - Hyperlipidemia, unspecified (11) Tobacco use: Status: Chronic Code(s): Z72.0 - Tobacco use Plan: RECOMMENDATIONS: 1. Walking oximetry prior to discharge 2. Diuretic therapy per cardiology recommendations. 3. Aggressive control of hypertension 4. Continue as needed bronchodilator therapy. 5. Outpatient pulmonary follow-up is recommended. 6. Possible okay to discharge from pulmonary perspective if tolerates room air IMPRESSIONS: 1. Acute hypoxemic respiratory failure secondary to acute diastolic CHF Patient with shortness of breath, chest pain hypoxemia with elevated BNP and troponin. Clinical suspicion for acute decompensated heart failure. Echocardiogram shows significant LVH with diastolic dysfunction. Rapid improvement on IV diuretic therapy. Initiation of p.o. medications yesterday has led to a resolution in nitroglycerin requirements. We will check a walking oximetry prior to discharge 2. Chest pain/troponin elevation Initial presenting EKG was without any acute changes. Cardiology has been consulted to evaluate the patient. Continue primary medical management per their recommendations. Echocardiogram is showing significant LVH 3. Chronic tobacco dependency Clinical suspicion for a comorbid conditions such as COPD complicating overall course. Patient would need complete PFTs as an outpatient for quantification clarification of lung function. Did stress the importance of smoking cessation. As needed Combivent on discharge could be given. Will need to watch closely as tachycardia associated with bronchodilators can exacerbate diastolic dysfunction. 4. Hypertension/hyperlipidemia/diabetes mellitus Complicates care, management, recovery and prognosis. Continue sliding scale insulin coverage. Blood sugars are relatively controlled. Inpatient E&M: 44619 Subs Hosp L2
[2020-12-17 12:26] LABS: Bedside Glucose 317 mg/dL (70-110)
--- NOTE | 2020-12-17 13:45 | PCM.PN.HOSP ---
Subjective Subjective: Breathing well. Tolerating room air. +Orthopnea. Objective Data Objective Data Vital Signs: Vital Signs Temp Pulse Resp BP Pulse Ox 36.8 C 72 18 158/59 H 96 12/17/20 10:00 12/17/20 10:00 12/17/20 10:00 12/17/20 10:00 12/17/20 10:00 Oxygen Flow Rate (L/min) 3 Oxygen Delivery Method Room Air Weight: 57.2 kg Body Mass Index (BMI) 24.7 Intake & Output: Intake and Output for Last 24 Hours 12/15/20 12/16/20 12/17/20 23:59 23:59 23:59 Intake Total 860.5 / 896.5 1005.0 / 1005.0 480 / 480 Output Total 2750 / 3150 3950 / 3950 1000 / 1000 Balance -1889.5 / -2253.5 -2945.0 / -2945.0 -520 / -520 Lab / Micro Data Result Diagrams: 12/17/20 06:39 12/17/20 06:30 Labs: Laboratory Results - last 24 hr 12/16/20 12/16/20 12/16/20 11:36 16:47 21:30 WBC RBC Hgb Hct MCV MCH MCHC RDW Std Deviation RDW Coeff of Lurdes Plt Count MPV Immature Gran % (Auto) Neut % (Auto) Lymph % (Auto) [place] % (Auto) Eos % (Auto) Baso % (Auto) Absolute Neuts (auto) Absolute Lymphs (auto) Nucleated RBC % Sodium Potassium Chloride Carbon Dioxide Anion Gap BUN Creatinine Estim Creat Clear Calc Est GFR (MDRD) Af Amer Est GFR (MDRD) Non-Af BUN/Creatinine Ratio Glucose Calcium POC Glucose 372 H 338 H 347 H 12/17/20 12/17/20 12/17/20 06:30 06:39 06:43 WBC 10.5 RBC 3.39 L Hgb 10.2 L Hct 31.8 L MCV 93.8 MCH 30.1 MCHC 32.1 RDW Std Deviation 44.5 H RDW Coeff of Lurdes 13.0 Plt Count 318 MPV 9.6 Immature Gran % (Auto) 0.500 Neut % (Auto) 68.6 Lymph % (Auto) 19.6 [place] % (Auto) 10.0 Eos % (Auto) 1.1 Baso % (Auto) 0.2 Absolute Neuts (auto) 7.2 Absolute Lymphs (auto) 2.05 Nucleated RBC % 0 Sodium 140 Potassium 3.4 L Chloride 103 Carbon Dioxide 30.0 Anion Gap 7 BUN 38 H Creatinine 1.69 H Estim Creat Clear Calc 25.71 Est GFR (MDRD) Af Amer 39 L Est GFR (MDRD) Non-Af 32 L BUN/Creatinine Ratio 22.5 H Glucose 260 H Calcium 8.0 L POC Glucose 263 H 12/17/20 12:17 WBC RBC Hgb Hct MCV MCH MCHC RDW Std Deviation RDW Coeff of Lurdes Plt Count MPV Immature Gran % (Auto) Neut % (Auto) Lymph % (Auto) [place] % (Auto) Eos % (Auto) Baso % (Auto) Absolute Neuts (auto) Absolute Lymphs (auto) Nucleated RBC % Sodium Potassium Chloride Carbon Dioxide Anion Gap BUN Creatinine Estim Creat Clear Calc Est GFR (MDRD) Af Amer Est GFR (MDRD) Non-Af BUN/Creatinine Ratio Glucose Calcium POC Glucose 317 H Micro: Microbiology 12/15/20 01:40 Blood Culture (Wb) - Left Hand Blood Culture - Preliminary No growth in 48 hours. 12/15/20 01:15 Blood Culture (Wb) - Anticubital Right Blood Culture - Preliminary No growth in 48 hours. 12/15/20 Unknown Nasal Secretion SARS-CoV-2 Antigen (Rapid) - Final Rhythm Strip Rhythm Strip: Sinus Rhythm Rate: 90 Ectopy: None Physical Exam Narrative up at the in chair. No respiratory distress. No conversational dyspnea. Const alert Resp normal respiratory effort and clear to auscultation bilaterally Cardio regular rate, regular rhythm, S1 normal heart sound and S2 normal heart sound Assessment & Plan Assessment/Plan (1) Acute respiratory failure with hypoxia: Status: Acute Code(s): J96.01 - Acute respiratory failure with hypoxia Plan: 1. acute hypoxic respiratory failure 2/2 CHF exacerbation improving and now on room air 2. acute HFpEF EF 55% on IV furosemide on lisinopril on carvedilol 3. Hypertensive emergency POA may have led to flash pulmonary edema 4. elevated troponins peaked at 0.194 may have been due to above cardiology following stress test ordered 5. VTE prophylaxis: LMWH Inpatient E&M: 66181 Subs Hosp L2
[2020-12-17] MEDS: Potassium Chloride Oral Tablet 20 MEQ 40 MEQ PO (16:12)
[2020-12-17 16:30] LABS: Bedside Glucose 356 mg/dL (70-110)
[2020-12-17] MEDS: Atorvastatin Calcium 10 MG Tablet PO (20:45)
[2020-12-17 20:56] LABS: Bedside Glucose 326 mg/dL (70-110)
[2020-12-18] VITALS (8 sets, daily range): BP systolic 151–193; BP diastolic 60–80; PULSE 64–74; RESP 16–18; TEMP 36.6–36.9; O2SAT 92–97
[2020-12-18] MEDS: hydrALAZINE 20 MG/ML Vial 10 MG IV (05:39)
--- NOTE | 2020-12-18 05:55 | EKG12_ITS ---
Test Reason : AM EKG Blood Pressure : / mmHG Vent. Rate : 072 BPM Atrial Rate : 072 BPM P-R Int : 144 ms QRS Dur : 100 ms QT Int : 442 ms P-R-T Axes : 059 016 104 degrees QTc Int : 483 ms Normal sinus rhythm Left ventricular hypertrophy Abnormal ECG Confirmed by JETT OQUENDO, KIERA ([id number]), newspaper managing editor TULIO MCFARLAND ([id number]) on 12/19/2020 9:19:22 AM Referred By: TIMMY Confirmed By:KIERA FRAUSTO MD
[2020-12-18 06:06] LABS: Bedside Glucose 59 mg/dL (70-110)
--- NOTE | 2020-12-18 06:12 | PN.HOSP_ITS ---
Subjective Subjective: Hypoglycemia with blood glucose of 59. Hypoglycemia regimen ordered. Give an amp of D50. NPO FOR STRESS. Decrease lantus insulin as patient had dinner and peanut butter last night. Objective Data Objective Data Vital Signs: Vital Signs Temp Pulse Resp BP Pulse Ox 98.4 F 70 16 193/80 H 92 12/18/20 04:55 12/18/20 05:39 12/18/20 04:55 12/18/20 05:39 12/18/20 04:55 Oxygen Flow Rate (L/min) 3 Oxygen Delivery Method Room Air Weight: 57.2 kg Body Mass Index (BMI) 24.7 Intake & Output: Intake and Output for Last 24 Hours 12/16/20 12/17/20 12/18/20 23:59 23:59 23:59 Intake Total 1005.0 / 1005.0 1080 / 1080 Output Total 3950 / 3950 2350 / 2350 Balance -2945.0 / -2945.0 -1270 / -1270 Lab / Micro Data Result Diagrams: 12/17/20 06:39 12/17/20 06:30 Labs: Laboratory Results - last 24 hr 12/17/20 12/17/20 12/17/20 06:30 06:39 06:43 WBC 10.5 RBC 3.39 L Hgb 10.2 L Hct 31.8 L MCV 93.8 MCH 30.1 MCHC 32.1 RDW Std Deviation 44.5 H RDW Coeff of Lurdes 13.0 Plt Count 318 MPV 9.6 Immature Gran % (Auto) 0.500 Neut % (Auto) 68.6 Lymph % (Auto) 19.6 [place] % (Auto) 10.0 Eos % (Auto) 1.1 Baso % (Auto) 0.2 Absolute Neuts (auto) 7.2 Absolute Lymphs (auto) 2.05 Nucleated RBC % 0 Sodium 140 Potassium 3.4 L Chloride 103 Carbon Dioxide 30.0 Anion Gap 7 BUN 38 H Creatinine 1.69 H Estim Creat Clear Calc 25.71 Est GFR (MDRD) Af Amer 39 L Est GFR (MDRD) Non-Af 32 L BUN/Creatinine Ratio 22.5 H Glucose 260 H Calcium 8.0 L POC Glucose 263 H 12/17/20 12/17/20 12/17/20 12:17 16:09 20:50 WBC RBC Hgb Hct MCV MCH MCHC RDW Std Deviation RDW Coeff of Lurdes Plt Count MPV Immature Gran % (Auto) Neut % (Auto) Lymph % (Auto) [place] % (Auto) Eos % (Auto) Baso % (Auto) Absolute Neuts (auto) Absolute Lymphs (auto) Nucleated RBC % Sodium Potassium Chloride Carbon Dioxide Anion Gap BUN Creatinine Estim Creat Clear Calc Est GFR (MDRD) Af Amer Est GFR (MDRD) Non-Af BUN/Creatinine Ratio Glucose Calcium POC Glucose 317 H 356 H 326 H 12/18/20 05:59 WBC RBC Hgb Hct MCV MCH MCHC RDW Std Deviation RDW Coeff of Lurdes Plt Count MPV Immature Gran % (Auto) Neut % (Auto) Lymph % (Auto) [place] % (Auto) Eos % (Auto) Baso % (Auto) Absolute Neuts (auto) Absolute Lymphs (auto) Nucleated RBC % Sodium Potassium Chloride Carbon Dioxide Anion Gap BUN Creatinine Estim Creat Clear Calc Est GFR (MDRD) Af Amer Est GFR (MDRD) Non-Af BUN/Creatinine Ratio Glucose Calcium POC Glucose 59 L Micro: Microbiology 12/15/20 01:40 Blood Culture (Wb) - Left Hand Blood Culture - Preliminary No growth in 48 hours. 12/15/20 01:15 Blood Culture (Wb) - Anticubital Right Blood Culture - Preliminary No growth in 48 hours. 12/15/20 Unknown Nasal Secretion SARS-CoV-2 Antigen (Rapid) - Final Rhythm Strip Rhythm Strip: Sinus Rhythm Rate: 90 Ectopy: None
[2020-12-18] MEDS: Dextrose 50%-Water 25 GM/50 ML DISP.SYRIN IV (06:19)
[2020-12-18] MEDS: Aspirin 81 MG TAB.CHEW PO (06:23)
[2020-12-18] MEDS: Lisinopril 40 MG Tablet PO (06:23)
[2020-12-18] MEDS: 0.9% Saline Lock 10 ML Syringe IV (06:23)
[2020-12-18 06:38] LABS: Anion Gap 5 (5-15); BUN 37 mg/dL (7-18); BUN/Creat Ratio 28.7 RATIO (10-20); Calcium,Total 8.3 mg/dL (8.5-10.1); Chloride 107 mmol/L (98-107); Creatinine, Serum 1.29 mg/dL (0.55-1.02); EST Glomerular Filtration Rate 44 mL/min (>60); Est Glom Filt Rate - Afr Amer 54 mL/min (>60); Estimated Creatinine Clearance 33.68 ml/min; Glucose 54 mg/dL (74-106); Potassium 3.7 mmol/L (3.5-5.1); Sodium Level 142 mmol/L (136-145)
--- NOTE | 2020-12-18 06:54 | CPS ---
per night stocker therapist, pt refused BIPAP last night. pt does not wear one @home.
--- NOTE | 2020-12-18 09:06 | PCM.PN.CARD ---
Objective Data Objective Data Vital Signs: Vital Signs Temp Pulse Resp BP Pulse Ox 98.5 F 72 18 161/72 H 93 12/18/20 06:17 12/18/20 07:00 12/18/20 06:17 12/18/20 06:17 12/18/20 06:53 Oxygen Flow Rate (L/min) 3 Oxygen Delivery Method Room Air Weight: 121 lb 14.65 oz Body Mass Index (BMI) 24.7 Intake & Output: Intake and Output for Last 24 Hours 12/16/20 12/17/20 12/18/20 23:59 23:59 23:59 Intake Total 1005.0 / 1005.0 1080 / 1080 Output Total 3950 / 3950 2350 / 2350 400 / 400 Balance -2945.0 / -2945.0 -1270 / -1270 -400 / -400 Lab / Micro Data Result Diagrams: 12/17/20 06:39 12/18/20 05:58 Labs: Laboratory Results - last 24 hr 12/17/20 12/17/20 12/17/20 12:17 16:09 20:50 Sodium Potassium Chloride Carbon Dioxide Anion Gap BUN Creatinine Estim Creat Clear Calc Est GFR (MDRD) Af Amer Est GFR (MDRD) Non-Af BUN/Creatinine Ratio Glucose Calcium POC Glucose 317 H 356 H 326 H 12/18/20 12/18/20 05:58 05:59 Sodium 142 Potassium 3.7 Chloride 107 Carbon Dioxide 30.0 Anion Gap 5 BUN 37 H Creatinine 1.29 H Estim Creat Clear Calc 33.68 Est GFR (MDRD) Af Amer 54 L Est GFR (MDRD) Non-Af 44 L BUN/Creatinine Ratio 28.7 H Glucose 54 L Calcium 8.3 L POC Glucose 59 L Micro: Microbiology 12/15/20 01:40 Blood Culture (Wb) - Left Hand Blood Culture - Preliminary No growth in 48 hours. 12/15/20 01:15 Blood Culture (Wb) - Anticubital Right Blood Culture - Preliminary No growth in 48 hours. 12/15/20 Unknown Nasal Secretion SARS-CoV-2 Antigen (Rapid) - Final Rhythm Strip Rhythm Strip: Sinus Rhythm Rate: 90 Ectopy: None 12/18/20 05:58: Sodium 142, Potassium 3.7, Chloride 107, Carbon Dioxide 30.0, Anion Gap 5, BUN 37 H, Creatinine 1.29 H, Est GFR (MDRD) Af Amer 54 L, Est GFR (MDRD) Non-Af 44 L, BUN/Creatinine Ratio 28.7 H, Glucose 54 L, Calcium 8.3 L Rhythm: EKG: ECHO: Stress Test: Cardiac Cath: PCI: CT Surgery: Holter monitor: EPS: PPM: CXR: Chest CT Scan: Assessment & Plan Assessment/Plan (1) Hypertensive urgency: Status: Acute Code(s): I16.0 - Hypertensive urgency Plan: The patient's blood pressure does appear to be coming under better control. Her beta-william dose was increased to assist with this. However she was noted to have evidence earlier this morning of sinus bradycardia/marked sinus bradycardia. Thus her beta-william dose will be decreased. She may need adjustment of other antihypertensive regimen that will not affect her underlying cardiac rate to assist with blood pressure control. She will also be asked to have a renal artery duplex study to evaluate for any obvious renal artery stenosis that would contribute to her hypertensive event. (2) Acute decompensated heart failure: Status: Acute Code(s): I50.9 - Heart failure, unspecified Plan: She was thought to have acute CHF. Based upon her cardiovascular diagnostic studies this would be CHF with preserved ejection fraction. She does appear to be improving overall. However she still had symptoms concerning for orthopnea last night. Thus she will need to continue diuretic therapy although her diuretic dose will have to be adjusted to try and assist with her fluid balance as well as monitoring her renal function at the same time. (3) Elevated troponin: Status: Acute Code(s): R77.8 - Other specified abnormalities of plasma proteins Plan: She did have abnormal cardiac enzymes. This may be a type II event secondary to her hypertension. Hopefully as she improves with respect to her respiratory status she can go through at minimum a pharmacologic stress nuclear imaging study to screen for any obvious evidence of CAD that would require further evaluation and care. (4) Hyperlipidemia: Status: Chronic Code(s): E78.5 - Hyperlipidemia, unspecified Qualifiers: Hyperlipidemia type: unspecified Qualified Code(s): E78.5 - Hyperlipidemia, unspecified Plan: She should continue risk factor evaluation care as deemed appropriate.
--- NOTE | 2020-12-18 10:36 | PCM.PN.INT ---
Subjective Subjective: Patient reports she is subjectively improved compared to yesterday. Patient was hypertensive overnight, but has remained on room air and tolerating well. Patient did have a renal ultrasound this morning and was tolerating well. Objective Data Objective Data Vital Signs: Vital Signs Temp Pulse Resp BP Pulse Ox 36.9 C 72 18 161/72 H 93 12/18/20 06:17 12/18/20 07:00 12/18/20 06:17 12/18/20 06:17 12/18/20 06:53 Oxygen Flow Rate (L/min) 3 Oxygen Delivery Method Room Air Weight: 55.3 kg Body Mass Index (BMI) 24.7 Intake & Output: Intake and Output for Last 24 Hours 12/16/20 12/17/20 12/18/20 23:59 23:59 23:59 Intake Total 1005.0 / 1005.0 1080 / 1080 Output Total 3950 / 3950 2350 / 2350 400 / 400 Balance -2945.0 / -2945.0 -1270 / -1270 -400 / -400 Lab / Micro Data Result Diagrams: 12/17/20 06:39 12/18/20 05:58 Labs: Laboratory Results - last 24 hr 12/17/20 12/17/20 12/17/20 12:17 16:09 20:50 Sodium Potassium Chloride Carbon Dioxide Anion Gap BUN Creatinine Estim Creat Clear Calc Est GFR (MDRD) Af Amer Est GFR (MDRD) Non-Af BUN/Creatinine Ratio Glucose Calcium POC Glucose 317 H 356 H 326 H 12/18/20 12/18/20 05:58 05:59 Sodium 142 Potassium 3.7 Chloride 107 Carbon Dioxide 30.0 Anion Gap 5 BUN 37 H Creatinine 1.29 H Estim Creat Clear Calc 33.68 Est GFR (MDRD) Af Amer 54 L Est GFR (MDRD) Non-Af 44 L BUN/Creatinine Ratio 28.7 H Glucose 54 L Calcium 8.3 L POC Glucose 59 L Micro: Microbiology 12/15/20 01:40 Blood Culture (Wb) - Left Hand Blood Culture - Preliminary No growth in 48 hours. 12/15/20 01:15 Blood Culture (Wb) - Anticubital Right Blood Culture - Preliminary No growth in 48 hours. 12/15/20 Unknown Nasal Secretion SARS-CoV-2 Antigen (Rapid) - Final Rhythm Strip Rhythm Strip: Sinus Rhythm Rate: 90 Ectopy: None Physical Exam Const alert, oriented x3 and no apparent distress General Appearance: cooperative and well developed; Negative for ill appearing HEENT normocephalic, head/scalp atraumatic and moist oral mucous membranes Eyes PERRL, EOMs intact bilaterally and conjunctivae normal Neck full ROM Resp normal respiratory effort and no use of accessory muscles Effort and Inspection: able to speak in complete sentences and prolonged expiratory phase; Negative for actively coughing or uses accessory muscles Auscultation: diminished lung sounds; Negative for rales, rhonchi or wheezes Cardio regular rate, regular rhythm, S1 normal heart sound, S2 normal heart sound, no murmurs, no rub, no gallops and no JVD GI normal to inspection, nondistended, normoactive bowel sounds Extremity General Extremity: edema bilateral lower extremity; Negative for clubbing Skin no rashes or lesions noted Neuro oriented x3 and CN's II-XII intact bilaterally Psych cooperative Attitude: calm Activity / Motor Behavior: appropriate eye contact Mood & Affect: flat affect Assessment & Plan Assessment/Plan (1) Acute respiratory failure with hypoxia: Status: Acute Code(s): J96.01 - Acute respiratory failure with hypoxia (2) Acute decompensated heart failure: Status: Acute Code(s): I50.9 - Heart failure, unspecified (3) Hypertensive urgency: Status: Acute Code(s): I16.0 - Hypertensive urgency (4) Chronic anemia: Status: Chronic Code(s): D64.9 - Anemia, unspecified (5) Chronic kidney disease, stage III (moderate): Status: Chronic Code(s): N18.30 - Chronic kidney disease, stage 3 unspecified Qualifiers: Chronic kidney disease stage 3 subtype: unspecified whether 3a or 3b Qualified Code(s): N18.30 - Chronic kidney disease, stage 3 unspecified (6) Diabetes mellitus, type II: Status: Chronic Code(s): E11.9 - Type 2 diabetes mellitus without complications Qualifiers: Diabetes mellitus penitentiary insulin use: without parts counterman use Diabetes mellitus complication status: with other specified complication Qualified Code(s): E11.69 - Type 2 diabetes mellitus with other specified complication (7) Elevated LFTs: Status: Acute Code(s): R79.89 - Other specified abnormal findings of blood chemistry (8) Elevated troponin: Status: Acute Code(s): R77.8 - Other specified abnormalities of plasma proteins (9) Hypertension: Status: Chronic Code(s): I10 - Essential (primary) hypertension Qualifiers: Hypertension type: essential hypertension Qualified Code(s): I10 - Essential (primary) hypertension (10) Hyperlipidemia: Status: Chronic Code(s): E78.5 - Hyperlipidemia, unspecified Qualifiers: Hyperlipidemia type: unspecified Qualified Code(s): E78.5 - Hyperlipidemia, unspecified (11) Tobacco use: Status: Chronic Code(s): Z72.0 - Tobacco use Plan: RECOMMENDATIONS: 1. Walking oximetry prior to discharge 2. Diuretic therapy per cardiology recommendations. 3. Aggressive control of hypertension. Nephrology following 4. Continue as needed bronchodilator therapy. 5. Outpatient pulmonary follow-up is recommended. 6. Possible okay to discharge from pulmonary perspective if tolerates room air 7. Follow-up in outpatient office in 2 weeks to meet with nurse practitioner for outpatient testing IMPRESSIONS: 1. Acute hypoxemic respiratory failure secondary to acute diastolic CHF Patient with shortness of breath, chest pain hypoxemia with elevated BNP and troponin. Clinical suspicion for acute decompensated heart failure. Echocardiogram shows significant LVH with diastolic dysfunction. Rapid improvement on IV diuretic therapy. Initiation of p.o. medications yesterday has led to a resolution in nitroglycerin requirements. We will check a walking oximetry prior to discharge. Patient may have an element of COPD, but this would have to be verified by outpatient testing. Anticipate hyperglycemia secondary to steroids administered initially. No wheezing on exam, so likely does not require steroids from a pulmonary perspective 2. Chest pain/troponin elevation Initial presenting EKG was without any acute changes. Cardiology has been consulted to evaluate the patient. Continue primary medical management per their recommendations. Echocardiogram is showing significant LVH 3. Chronic tobacco dependency Clinical suspicion for a comorbid conditions such as COPD complicating overall course. Patient would need complete PFTs as an outpatient for quantification clarification of lung function. Did stress the importance of smoking cessation. As needed Combivent on discharge could be given. Will need to watch closely as tachycardia associated with bronchodilators can exacerbate diastolic dysfunction. 4. Hypertension/hyperlipidemia/diabetes mellitus Complicates care, management, recovery and prognosis. Continue sliding scale insulin coverage. Blood sugars are relatively controlled. Inpatient E&M: 38919 Subs Hosp L2
[2020-12-18] MEDS: Enoxaparin 30 MG/0.3 ML Syringe SC (11:06)
[2020-12-18] MEDS: Famotidine 20 MG Tablet PO (11:06)
[2020-12-18] MEDS: Furosemide 40 MG/4 ML Vial IV (11:07)
[2020-12-18] MEDS: Ferrous Sulfate 325 MG Tablet PO (11:07)
[2020-12-18] MEDS: Carvedilol 6.25 MG Tablet PO (11:08)
[2020-12-18] MEDS: Insulin Lispro 100 UNIT/ML INSULN.PEN SC (11:08)
[2020-12-18 12:16] LABS: Bedside Glucose 165 mg/dL (70-110)
--- NOTE | 2020-12-18 12:55 | DS.PCM_ITS ---
Providers Date of Admission: 12/15/20 Primary Care Physician: [facility] Consultations 12/15/20 02:36 Physician Consult Routine Consulting Provider: Greg Draper Consulted Physician Type:: Line Construction Engineer Reason for Consult: Resp failure, on BIPAP, CHF Exac, HTN urg Notified: Yes Date Notified:: 12/15/20 Time Notified: 02:07 Method of Notification:: cortext Physician Consult Routine Consulting Provider: Karri Grimaldo Consulted Physician Type:: CARD -[facility] Reason for Consult: Resp failure, CHF, on BIPAP, nitro drip Notified: Yes Date Notified:: 12/15/20 Time Notified: 02:04 Method of Notification:: cortext Reason For Visit: ACUTE RESP FAILURE, CHF EXACERBATION, HTN URGENCY Diagnosis Discharge Diagnosis (1) Acute respiratory failure with hypoxia: Status: Acute Code(s): J96.01 - Acute respiratory failure with hypoxia (2) Acute decompensated heart failure: Status: Acute Code(s): I50.9 - Heart failure, unspecified Plan: 1. acute hypoxic respiratory failure 2/2 CHF exacerbation improving and now on room air 2. acute HFpEF EF 55% continue furosemide on lisinopril on carvedilol 3. Hypertensive emergency POA may have led to flash pulmonary edema 4. elevated troponins peaked at 0.194 may have been due to above cardiology following stress test negative (3) Hypertensive urgency: Status: Acute Code(s): I16.0 - Hypertensive urgency (4) Chronic anemia: Status: Chronic Code(s): D64.9 - Anemia, unspecified (5) Chronic kidney disease, stage III (moderate): Status: Chronic Code(s): N18.30 - Chronic kidney disease, stage 3 unspecified Qualifiers: Chronic kidney disease stage 3 subtype: unspecified whether 3a or 3b Qualified Code(s): N18.30 - Chronic kidney disease, stage 3 unspecified (6) Diabetes mellitus, type II: Status: Chronic Code(s): E11.9 - Type 2 diabetes mellitus without complications Qualifiers: Diabetes mellitus retirement insulin use: without retirement use Diabetes mellitus complication status: with other specified complication Qualified Code(s): E11.69 - Type 2 diabetes mellitus with other specified complication (7) Elevated LFTs: Status: Acute Code(s): R79.89 - Other specified abnormal findings of blood chemistry (8) Elevated troponin: Status: Acute Code(s): R77.8 - Other specified abnormalities of plasma proteins (9) Hypertension: Status: Chronic Code(s): I10 - Essential (primary) hypertension Qualifiers: Hypertension type: essential hypertension Qualified Code(s): I10 - Essential (primary) hypertension (10) Hyperlipidemia: Status: Chronic Code(s): E78.5 - Hyperlipidemia, unspecified Qualifiers: Hyperlipidemia type: unspecified Qualified Code(s): E78.5 - Hyperlipidemia, unspecified (11) Tobacco use: Status: Chronic Code(s): Z72.0 - Tobacco use Medications at Discharge Home Medications atorvastatin 10 mg PO QODAY 12/15/20 ferrous sulfate 325 mg PO DAILY 12/15/20 glimepiride 2 mg PO DAILY 12/15/20 lisinopril 20 mg PO DAILY 12/15/20 metformin 500 mg PO BID 12/15/20 Basaglar KwikPen U-100 Insulin 22 unit SUBCUT QHS 12/17/20 aspirin [Aspirin Low Dose] 81 mg PO DAILY 12/17/20 insulin aspart U-100 [Novolog U-100 Insulin aspart] See Protocol SUBCUT 0800,1200,1700 12/17/20 amlodipine [Norvasc] 5 mg PO DAILY #30 tab 12/18/20 carvedilol 6.25 mg PO BID #60 tab 12/18/20 furosemide [Lasix] 40 mg PO DAILY #30 tab 12/18/20 lisinopril 40 mg PO DAILY #30 tab 12/18/20 potassium chloride [K-Tab] 10 meq PO DAILY #30 tab 12/18/20 Hospital Course Procedures 2-D Echocardiogram and Stress test Summary of Care Provided Minutes Spent on Discharge: 35 Hospital Course: Female presents with dyspnea. She was found to have CHF. May been related with flash pulmonary edema due to hypertensive urgency. Patient improved with diuresis. Patient had a bump in her troponins is likely due to demand and stress test was negative. Patient had echocardiogram that showed an EF of 55%. Patient was seen in consultation by cardiology as well as pulmonology. Patient currently on room air. Physical Exam Const alert and oriented x3 General Appearance: cooperative and comfortable Resp normal respiratory effort and clear to auscultation bilaterally Cardio regular rate, regular rhythm, S1 normal heart sound and S2 normal heart sound ABG / Lab / Microbiology Data Result Diagrams: 12/17/20 06:39 12/18/20 05:58 Laboratory: Laboratory Results - last 24 hr 12/17/20 12/17/20 12/18/20 16:09 20:50 05:58 Sodium 142 Potassium 3.7 Chloride 107 Carbon Dioxide 30.0 Anion Gap 5 BUN 37 H Creatinine 1.29 H Estim Creat Clear Calc 33.68 Est GFR (MDRD) Af Amer 54 L Est GFR (MDRD) Non-Af 44 L BUN/Creatinine Ratio 28.7 H Glucose 54 L Calcium 8.3 L POC Glucose 356 H 326 H 12/18/20 12/18/20 05:59 11:05 Sodium Potassium Chloride Carbon Dioxide Anion Gap BUN Creatinine Estim Creat Clear Calc Est GFR (MDRD) Af Amer Est GFR (MDRD) Non-Af BUN/Creatinine Ratio Glucose Calcium POC Glucose 59 L 165 H Microbiology: Microbiology 12/15/20 01:40 Blood Culture (Wb) - Left Hand Blood Culture - Preliminary No growth in 48 hours. 12/15/20 01:15 Blood Culture (Wb) - Anticubital Right Blood Culture - Preliminary No growth in 48 hours. 12/15/20 Unknown Nasal Secretion SARS-CoV-2 Antigen (Rapid) - Final Radiography Diagnostic Testing: Radiology Impression Renal Artery Duplex 12/17/20 09:30 Interpretation Summary Maximal aortic diameter 1.33 x 1.29 cm proximally. Aortic velocity is greater than 100 cm/s flow in validating renal artery aortic ratios. Abnormal flow velocity right renal artery ostium, proximal, mid renal artery suggestive of greater than 60% stenosis. Less than 60% stenosis left renal artery Right kidney length 10.59 cm Left kidney length 9.84 cm Ordering Physician: Rajesh Novak Referring Physician: [facility] Performed By: Dayami Fairchild RVT D/C Instructions Discharge Diet: 1800 Calorie Control Diet and 2000 mg Sodium Diet Meaningful Use Info Meaningful Use Diagnoses (Choose all that apply): CHF CHF LEANNE/ARB ordered at discharge?: Yes Documented LVEF (%): 55 Discharge Plan Admission Admit Date/Time: 12/15/20 02:01 Attending Provider: Solis Youngblood Primary Care Provider: [facility],Bela Pascual Consulting Providers: Karri Grimaldo ; Greg Draper Instructions Patient Instructions: Heart Failure: Making Changes to Your Diet, Heart Failure: Evaluating Your Heart, Heart Failure: Medications to Help Your Heart, Heart Failure Discharge Orders/Prescriptions Prescriptions: New carvedilol 6.25 mg Tablet 6.25 mg PO BID Qty: 60 RF: 0 lisinopril 40 mg Tablet 40 mg PO DAILY Qty: 30 RF: 0 furosemide [Lasix] 40 mg tablet 40 mg PO DAILY Qty: 30 RF: 0 potassium chloride [K-Tab] 10 mEq tablet extended release 10 meq PO DAILY Qty: 30 RF: 0 amlodipine [Norvasc] 5 mg tablet 5 mg PO DAILY Qty: 30 RF: 0 Continued atorvastatin 10 MG tablet 10 mg PO QODAY RF: 0 ferrous sulfate 325 MG tablet 325 mg PO DAILY RF: 0 glimepiride 4 MG tablet 2 mg PO DAILY RF: 0 metformin 500 MG tablet extended release 24 hr 500 mg PO BID RF: 0 insulin aspart U-100 [Novolog U-100 Insulin aspart] 100 unit/mL Solution See Protocol unit SUBCUT 0800,1200,1700 RF: 0 Basaglar KwikPen U-100 Insulin 100 unit/mL (3 mL) Insulin Pen 22 unit SUBCUT QHS RF: 0 aspirin [Aspirin Low Dose] 81 mg Tablet,Delayed Release (Dr/Ec) 81 mg PO DAILY RF: 0 No Action lisinopril 20 MG tablet 20 mg PO DAILY RF: 0 Referrals: Rajesh Novak MD [STAFF PHYSICIAN] - Within 1 Month [facility],Bela Pascual [Primary Care Provider] - Within 1 Week Disposition Patient Disposition: Home, self care Inpatient E&M: 80518 Disch Hosp
--- NOTE | 2020-12-18 14:54 | CASEMGMT ---
RN CM in to pt room. Pt feels ok to go home. Denies any needs at home. Pt screened with [facility] Palliative Care Screening Tool d/t strata 3, pt did not meet criteria.
--- NOTE | 2020-12-18 17:43 | STRESSREP ---
Stress Test Report Date: 12-18-2020 Procedure: Pharmacologic stress nuclear imaging study Indications: Abnormal cardiac enzymes; hypertension Consent: Per the patient Procedure: The patient underwent pharmacologic (Regadenoson 0.4mg ) evaluation with a peak heart rate of 86 beats per minute (54%predicted maximal heart rate) and a peak blood pressure of 144/70 mmHg. The baseline ECG demonstrated sinus rhythm. The peak pharmacologic ECG demonstrated no obvious ECG changes. There were no cardiac dysrhythmias pretest, during pharmacologic infusion, or recovery. There was mild chest discomfort during pharmacologic infusion and recovery. The examination was discontinued secondary to completion of protocol. Impression: 1. Pharmacologic (Regadenoson) evaluation 2. Peak pharmacologic ECG with no obvious ECG changes. 3. There were no cardiac dysrhythmias pretest, during pharmacologic infusion, or recovery. 4. Nuclear images pending Myocardial perfusion imaging study: Technique: The patient was injected with 11.0 millicuries of technetium 99m Cardiolite and subsequently rest SPECT Cardiolite nuclear imaging was obtained in the horizontal long, vertical long, and short axis views. The patient underwent pharmacologic (Regadenoson) evaluation with a peak heart rate of 86 beats per minute (54% percent predicted maximal heart rate) and a peak blood pressure of 144/70 mmHg. The patient was injected with 34.0 millicuries of technetium 99m Cardiolite and subsequently stress SPECT Cardiolite nuclear imaging was obtained in the horizontal long, vertical long, and short axis views. A gated Cardiolite study at peak stress was obtained. Interpretation: Rest and stress SPECT Cardiolite nuclear imaging status post realignment, normalization, and attenuation correction demonstrate relative uniform tracer uptake and myocardial perfusion appearing within normal limits. There is end systolic thickening and brightening. The gated Cardiolite study demonstrates myocardial thickening and inward wall motion. The reported LVEF is 47%. Impression: 1. Rest and stress SPECT Cardiolite nuclear imaging demonstrate relative uniform tracer uptake and myocardial perfusion appearing within normal limits. 2. The gated Cardiolite study reports an LVEF of 47%. This note was generated with [employer] software. It may contain incorrect words, spelling, and punctuation that were not noted in checking the note before signing.
--- NOTE | 2020-12-19 11:54 | CASEMGMT ---
RETA RODRIGES Discharge F/U Phone Call LACE: 11 Strata: 3 Discharge date: 12/18/20 Call date: 12/19/20 Call time: 1154 Admission dx: Acute resp failure, CHF exac, HTN urgency Pt states is heading out to pharmacy at this time to get meds. Pt states has been doing well, but weak since discharge. Pt states her only question with her meds is if she can finish up her previous script of Lisinopril 20mg by taking 2 tabs daily until gone and then fill 40mg script and pt is aware this is fine at this time. Pt states she had f/u appts scheduled and plans to keep. Pt states no suggestions for [facility] but does states she is grateful for all that cared for her. Pt voices no further questions/concerns/needs. S[place]en RETA RODRIGES
== END 2020-12-18 16:30 | disposition home or self-care (01) | DRG 291 ==
LOC: ED 01:29 → ICU 02:31 → PCU 12-16 13:52
PROVIDERS: Internal Medicine; Admitting Provider Family Medicine; Emergency Provider Emergency Medicine
DX: I13.0 Hypertensive heart and chronic kidney disease with heart failure and stage 1 through stage 4 chronic kidney disease, or unspecified chronic kidney disease (principal); J96.01 Acute respiratory failure with hypoxia; I50.31 Acute diastolic (congestive) heart failure; I16.1 Hypertensive emergency; J98.11 Atelectasis; D50.9 Iron deficiency anemia, unspecified; E11.22 Type 2 diabetes mellitus with diabetic chronic kidney disease; R79.89 Other specified abnormal findings of blood chemistry; N18.32 Chronic kidney disease, stage 3b; I16.0 Hypertensive urgency; E11.65 Type 2 diabetes mellitus with hyperglycemia; D69.6 Thrombocytopenia, unspecified; R77.8 Other specified abnormalities of plasma proteins; E11.649 Type 2 diabetes mellitus with hypoglycemia without coma; E78.5 Hyperlipidemia, unspecified; D64.9 Anemia, unspecified; F17.210 Nicotine dependence, cigarettes, uncomplicated; T38.0X5A Adverse effect of glucocorticoids and synthetic analogues, initial encounter; Y92.9 Unspecified place or not applicable; I12.9 Hypertensive chronic kidney disease with stage 1 through stage 4 chronic kidney disease, or unspecified chronic kidney disease; I34.0 Nonrheumatic mitral (valve) insufficiency; Z79.84 Long term (current) use of oral hypoglycemic drugs; Z79.82 Long term (current) use of aspirin; Z79.899 Other long term (current) drug therapy
CPT/HCPCS: 36415; 36600; 71045; 78452; 80048; 80053; 80061; 81001; 82803; 82962; 83036; 83605; 83735; 83880; 84145; 84439; 84443; 84484; 85025; 85610; 87040; 87426; 93005; 93017; 93306; 93975; 94002; 94003; 97161; 97166; 97802; 99251; 99285; 99406; A9500; A4216; G0463; J1940; J2785

== ENCOUNTER → 2020-12-31 10:37 | Outpatient (CLI) | payer MEDICARE, SELFPAY ==
[2020-12-15 02:43] VITALS: BMI 24.7
[2020-12-31 11:07] LABS: Absolute Lymphocyte Count 2.15 X10^3/uL (0.83-4.51); Absolute Neutrophil Count 8.9 X10^3/uL (2.0-7.7); Basophil# 0.05 X10^3/uL; Basophil% 0.4 % (0-1); Eosinophil# 0.17 X10^3/uL; Eosinophils% 1.4 % (0-5); Hematocrit 33.3 % (37-47); Hemoglobin 10.8 g/dL (12.0-15.0); Lymphocyte # 2.15 X10^3/ul (0.83-4.51); Lymphocyte % 17.4 % (19-41); Mean Corp Hgb Conc 32.4 g/dL (32-36); Mean Corpuscular Hgb 30.4 pg (27.0-32.0); Mean Corpuscular Volume 93.8 fL (81-99); Mean Platelet Vol. 9.6 fl (6.2-12.0); Monocyte# 1.04 X10^3/uL; Monocyte% 8.4 % (0-10); NRBC Flagged by Analyzer 0 % (0-5); Neutrophil # 8.87 X10^3/uL (2.7-7.7); Neutrophil % 71.8 % (47-70); Platelet Count 411 K/mm3 (150-450); RBC Distribution Width CV 12.9 % (11.6-14.6); RBC Distribution Width SD 44.5 fl (35.1-43.9); Red Blood Count 3.55 M/mm3 (4.2-5.4); White Blood Count 12.4 K/mm3 (4.4-11.0)
[2020-12-31 11:29] LABS: BNP,B-Type NATRIURETIC PEPTIDE 432.9 pg/mL (0-100)
[2020-12-31 11:33] LABS: ALB/GLOB Ratio 0.8 RATIO (0.9-2.4); AST(SGOT) 10 U/L (15-37); Alanine Aminotransfer ALT/SGPT 18 U/L (13-56); Albumin, Serum 2.8 g/dL (3.2-5.0); Alkaline Phosphatase 84 U/L (45-117); Anion Gap 6 (5-15); BUN 48 mg/dL (7-18); BUN/Creat Ratio 23.3 RATIO (10-20); Calcium,Total 8.7 mg/dL (8.5-10.1); Chloride 104 mmol/L (98-107); Creatinine, Serum 2.06 mg/dL (0.55-1.02); EST Glomerular Filtration Rate 26 mL/min (>60); Est Glom Filt Rate - Afr Amer 31 mL/min (>60); Globulin 3.6 g/dL (2.2-4.2); Glucose 289 mg/dL (74-106); Potassium 4.2 mmol/L (3.5-5.1); Protein, Total 6.4 g/dL (6.4-8.2); Sodium Level 140 mmol/L (136-145)
== END ==
DX: D64.9 Anemia, unspecified (principal); I50.9 Heart failure, unspecified; J96.91 Respiratory failure, unspecified with hypoxia
CPT/HCPCS: 36415; 80053; 83880; 85025

== ENCOUNTER → 2021-01-23 10:07 | Outpatient (CLI) | payer MEDICARE, SELFPAY ==
[2021-01-23 09:33] VITALS: BMI 21.7
[2021-01-23 10:42] LABS: Hemoglobin A1c 10.3 % (3.8-5.6)
[2021-01-23 11:03] LABS: Anion Gap 5 (5-15); BUN 40 mg/dL (7-18); BUN/Creat Ratio 26.7 RATIO (10-20); Calcium,Total 9.1 mg/dL (8.5-10.1); Chloride 102 mmol/L (98-107); EST Glomerular Filtration Rate 37 mL/min (>60); Est Glom Filt Rate - Afr Amer 45 mL/min (>60); Glucose 167 mg/dL (74-106); Potassium 4.3 mmol/L (3.5-5.1); Sodium Level 139 mmol/L (136-145)
== END ==
PROVIDERS: Referring Provider Surgery; Visit Provider Surgery
DX: E11.69 Type 2 diabetes mellitus with other specified complication (principal); E11.22 Type 2 diabetes mellitus with diabetic chronic kidney disease; N18.30 Chronic kidney disease, stage 3 unspecified
CPT/HCPCS: 36415; 80048; 83036

== ENCOUNTER 2021-07-08 16:59 | Inpatient (IN) | payer MEDICARE, SELFPAY ==
[2021-07-08] VITALS (34 sets, daily range): BP systolic 58–137; BP diastolic 30–101; PULSE 38–121; RESP 12–29; TEMP 27.6–31.5; O2SAT 98–100; BMI 24.4; BMI 20.5
--- NOTE | 2021-07-08 06:40 | EKG12_ITS ---
Test Reason : REPEAT Blood Pressure : / mmHG Vent. Rate : 056 BPM Atrial Rate : 056 BPM P-R Int : 158 ms QRS Dur : 120 ms QT Int : 626 ms P-R-T Axes : 083 -16 238 degrees QTc Int : 604 ms Sinus bradycardia Marked ST abnormality, possible inferior subendocardial injury Abnormal ECG Confirmed by CLAUDIA OQUENDO, YUNG ([id number]), assignment editor TULIO MCFARLAND ([id number]) on 07/09/2021 2:07:05 PM Referred By: Karri Grimaldo Confirmed By:YUNG TAYLOR MD
[2021-07-08] MEDS: 0.9% Normal Saline 1,000 ML 1000 ML IV (17:00)
[2021-07-08] MEDS: 0.9% Normal Saline 1,000 ML 999 ML IV ×3 (17:00→19:11)
--- NOTE | 2021-07-08 17:14 | EKG12_ITS ---
Test Reason : REPEAT Blood Pressure : / mmHG Vent. Rate : 075 BPM Atrial Rate : 037 BPM P-R Int : 000 ms QRS Dur : 194 ms QT Int : 574 ms P-R-T Axes : 000 -79 103 degrees QTc Int : 640 ms Junctional rhythm Left axis deviation Left bundle branch block Abnormal ECG Confirmed by CLAUDIA OQUENDO, YUNG ([id number]), business editor TULIO MCFARLAND ([id number]) on 07/09/2021 2:06:48 PM Referred By: Karri Grimaldo Confirmed By:YUNG TAYLOR MD
--- NOTE | 2021-07-08 17:14 | RAD_ITS ---
EXAM: XR CHEST, 1 VIEW : 1955 CLINICAL INDICATION: Unresponsive TECHNIQUE: Frontal view of the chest. This report was created using [employer] report generation technology. COMPARISON: 12/15/2020 FINDINGS: LUNGS AND PLEURAL SPACES: Unremarkable. No consolidation or edema. No pneumothorax. No effusion. HEART: Unremarkable. Cardiac silhouette not enlarged. MEDIASTINUM: Central airways and mediastinal contour are unremarkable. BONES/JOINTS: Unremarkable. SOFT TISSUES: Unremarkable. RAD/Chest 1 View (Portable) IMPRESSION: No radiographic evidence of acute cardiopulmonary disease. at 1742 Reported and signed by: Brock Ozuna MD Electronically Signed: Brock Ozuna MD at 17:41 EST Tel , Service support ,
--- NOTE | 2021-07-08 17:18 | CT_ITS ---
EXAM: CT HEAD WITHOUT INTRAVENOUS CONTRAST : 1955 CLINICAL INDICATION: Unresponsive TECHNIQUE: Multiple axial images were obtained of the head without intravenous contrast. This CT exam was performed using one or more of the following dose reduction techniques: automated exposure control, adjustment of the mA and/or kV according to patient size, and/or use of iterative reconstruction technique. This report was created using [employer] report generation technology. COMPARISON: None. FINDINGS: BRAIN AND EXTRA-AXIAL SPACES: There is hypoattenuation seen within the posterior parietal and occipital lobes bilaterally. There is borderline enlargement of the ventricular system. No intra- or extra-axial hemorrhage. No evidence of acute infarct. No intracranial mass or mass effect. There is preservation of the holland/white matter interface. Posterior fossa structures are unremarkable. Basal cisterns are patent. BONES/JOINTS: Unremarkable. No discrete lytic or blastic abnormalities. SINUSES: Unremarkable as visualized. Clear. MASTOID AIR CELLS: Unremarkable. Clear. ORBITS: Visualized globes, extraocular muscles, optic nerves and retrobulbar fat appear unremarkable. 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 There is no hemorrhage identified. If indicated further evaluation with MRI may be beneficial. Individualized dose optimization techniques were used for this CT. at 2137 Reported and signed by: Brock Ozuna MD Electronically Signed: Brock Ozuna MD at 21:36 EST Tel , Service support ,
--- NOTE | 2021-07-08 17:18 | EDS_ITS ---
HPI History of Present Illness Chief Complaint: Unresponsive Informant: EMS Limited: coma Onset/Context/Timing Onset: Days (2) Timing: Continuous Narrative Narrative: Patient was found unresponsive by a friend today. Patient was last seen by her friend 2 days ago. Patient was found laying on the floor in her bathroom. Patient is nonverbal. Patient is diabetic. EMS reports that the patient's blood sugar read high on their meter. EMS reports patient had a pulse and blood pressure and was trying to breathe on her own during their transport. PFSH PFSH Medical History Chronic kidney disease, stage III (moderate) Diabetes mellitus, type II Essential hypertension Hyperlipidemia Renal artery stenosis Tobacco use Home Medications atorvastatin 10 mg PO QODAY 12/15/20 [History Last Taken Unknown] glimepiride 2 mg PO DAILY 12/15/20 [History Last Taken Unknown] Basaglar KwikPen U-100 Insulin 22 unit SUBCUT QHS 12/17/20 [History Last Taken Unknown] aspirin [Aspirin Low Dose] 81 mg PO DAILY 12/17/20 [History Last Taken Unknown] insulin aspart U-100 [Novolog U-100 Insulin aspart] See Protocol SUBCUT 0800,1200,1700 12/17/20 [History Last Taken Unknown] amlodipine [Norvasc] 5 mg PO DAILY #30 tab 12/18/20 [Rx Last Taken Unknown] carvedilol 6.25 mg PO BID #60 tab 12/18/20 [Rx Last Taken Unknown] furosemide [Lasix] 40 mg PO DAILY #30 tab 12/18/20 [Rx Last Taken Unknown] potassium chloride [K-Tab] 10 meq PO DAILY #30 tab 12/18/20 [Rx Last Taken Unknown] ferrous sulfate 325 mg (65 mg iron) tablet 325 mg PO BID tab 01/03/21 [History Last Taken Unknown] polyethylene glycol 3350 17 gram/dose oral powder 17 g PO DAILY PRN 01/03/21 [History Last Taken Unknown] escitalopram oxalate 10 mg tablet 10 mg PO DAILY 06/05/21 [History Last Taken Unknown] Allergy/AdvReac Type Severity Reaction Status Date / Time No Known Allergies Allergy Verified 01/23/21 09:33 Family History Grandfather Diabetes Mother Heart disease Father Diabetes Brother Diabetes Daughter Diabetes Surgical History History of left breast biopsy History of tonsillectomy and adenoidectomy S/P endometrial ablation Social History Smoking Status: Current every day smoker tobacco type: cigarettes alcohol intake: current alcohol intake frequency: a few times a month Alcohol type: beer substance use type: does not use caffeine: Yes Type: carbonated beverages and coffee ROS ROS ED Review of Systems ROS Unobtainable: due to endotracheal tube and due to mental status EXAM Physical Exam Const Vital Signs: 07/08/21 17:00 07/08/21 17:08 07/08/21 17:22 Temperature 81.6 F L Temperature Source Core Pulse Rate 80 Respiratory Rate 20 H 18 Respiratory Effort Agonal Respiratory Pattern Blood Pressure Blood Pressure Mean Blood Pressure Source Blood Pressure Position Blood Pressure Location Pulse Ox 100 Oxygen Delivery Method Non-Rebreather Oxygen Flow Rate (L/min) 15 Fraction of Inspired Oxygen (FIO2) 07/08/21 17:26 07/08/21 17:38 07/08/21 17:40 Temperature 81.7 F L Temperature Source Core Pulse Rate 76 68 Respiratory Rate 12 29 H Respiratory Effort Respiratory Pattern Normal Blood Pressure 58/31 L Blood Pressure Mean 40 Blood Pressure Source Blood Pressure Position Blood Pressure Location Pulse Ox 100 100 Oxygen Delivery Method Mechanical Ventilator Oxygen Flow Rate (L/min) Fraction of Inspired Oxygen (FIO2) 50 07/08/21 17:41 07/08/21 17:43 07/08/21 17:45 Temperature 81.8 F L Temperature Source Core Pulse Rate 38 L 106 H 114 H Respiratory Rate 12 Respiratory Effort Respiratory Pattern Blood Pressure 92/74 Blood Pressure Mean 80 Blood Pressure Source Blood Pressure Position Blood Pressure Location Pulse Ox 100 100 Oxygen Delivery Method Mechanical Ventilator Mechanical Ventilator Oxygen Flow Rate (L/min) Fraction of Inspired Oxygen (FIO2) 07/08/21 17:52 07/08/21 18:08 07/08/21 18:15 Temperature 82.2 F L Temperature Source Core Pulse Rate 121 H 93 59 L Respiratory Rate 17 12 15 Respiratory Effort Respiratory Pattern Blood Pressure 123/70 H 131/50 H 109/52 L Blood Pressure Mean 87 77 71 Blood Pressure Source Blood Pressure Position Blood Pressure Location Pulse Ox 100 100 100 Oxygen Delivery Method Mechanical Ventilator Mechanical Ventilator Mechanical Ventilator Oxygen Flow Rate (L/min) Fraction of Inspired Oxygen (FIO2) 50 50 50 07/08/21 18:35 07/08/21 18:46 07/08/21 18:53 Temperature 83.4 F L Temperature Source Core Pulse Rate 55 L 51 L 52 L Respiratory Rate 12 12 12 Respiratory Effort Respiratory Pattern Blood Pressure 89/48 L 82/45 L 58/30 L Blood Pressure Mean 61 57 39 Blood Pressure Source Blood Pressure Position Blood Pressure Location Pulse Ox 100 Oxygen Delivery Method Mechanical Ventilator Oxygen Flow Rate (L/min) Fraction of Inspired Oxygen (FIO2) 50 07/08/21 18:57 07/08/21 19:02 07/08/21 19:08 Temperature 84.2 F L Temperature Source Core Pulse Rate 50 L 73 75 Respiratory Rate 12 12 12 Respiratory Effort Respiratory Pattern Blood Pressure 90/54 L 78/48 L 86/45 L Blood Pressure Mean 66 58 58 Blood Pressure Source Monitor Blood Pressure Position Supine Blood Pressure Location Left Arm Pulse Ox 100 100 100 Oxygen Delivery Method Mechanical Ventilator Mechanical Ventilator Mechanical Ventilator Oxygen Flow Rate (L/min) Fraction of Inspired Oxygen (FIO2) 50 35 35 07/08/21 19:14 07/08/21 19:21 07/08/21 19:31 Temperature 84.9 F L Temperature Source Core Pulse Rate 90 84 85 Respiratory Rate 12 12 12 Respiratory Effort Respiratory Pattern Blood Pressure 97/52 L 106/52 L 92/50 L Blood Pressure Mean 67 70 64 Blood Pressure Source Monitor Monitor Blood Pressure Position Supine Supine Blood Pressure Location Left Arm Left Arm Pulse Ox 100 100 100 Oxygen Delivery Method Mechanical Ventilator Mechanical Ventilator Mechanical Ventilator Oxygen Flow Rate (L/min) Fraction of Inspired Oxygen (FIO2) 35 35 07/08/21 19:36 Temperature Temperature Source Pulse Rate 85 Respiratory Rate 12 Respiratory Effort Respiratory Pattern Blood Pressure 92/46 L Blood Pressure Mean 61 Blood Pressure Source Monitor Blood Pressure Position Supine Blood Pressure Location Left Arm Pulse Ox 100 Oxygen Delivery Method Mechanical Ventilator Oxygen Flow Rate (L/min) Fraction of Inspired Oxygen (FIO2) 35 Positive cachectic and unkempt General Appearance ED: unkempt and cachectic Nutritional Appearance: cachectic HEENT Reports dry mucous membranes Mouth ED: Yes dry mucous membranes Mouth: dry mucous membranes Eyes PERRL Neck supple Resp normal respiratory effort Auscultation: diminished lung sounds Cardio regular rate and regular rhythm GI non-distended Palpation: soft Neuro [place] Coma Scale: document GCS findings None None None 3 Sensorium / Orientation: obtunded Psych Appearance: unkempt Skin Skin Narrative: There is a pressure sore over the left cheek. There is some ecchymosis over the left chest. MDM MDM MDM Narrative Medical decision making narrative: Initial EKG was obtained. On my interpretation, there is a normal sinus rhythm with a rate of 71. There is some ST elevation in leads V2, V3, and V4. Because of this, STEMI was called. The EKG was transmitted to Dr. Grimaldo. He did not feel that this met STEMI criteria. He felt the changes were most likely due to the electrolyte changes of DKA. He canceled the STEMI alert. Patient had episodes of bradycardia. Patient was given 1 mg of epinephrine IV. Patient's heart rate improved after this. Patient's blood pressure improved after this. Patient was given IV fluids. Patient was also given 1 amp of sodium bicarbonate. CBC shows a leukocytosis of 18.8. Arterial blood gas showed a pH of 1.04, PO2 of 288, PCO2 of 26.7, and bicarb of 7.2. Comprehensive metabolic profile shows CO2 of 9.0, anion gap was 29, BUN was 84 and creatinine was 3.52, glucose was greater than 5000, total CK was greater than 1000, high-sensitivity troponin was 8174. Urinalysis does not show any evidence of urinary tract infection. Portable 1 view chest x-ray was obtained. On my interpretation, lung serrano are clear. There is normal cardiac silhouette. Bony thorax is normal. There is no acute process noted. Radiologist also interpreted the x-ray and agrees. Patient was having episodes of apnea. Because of this and her GCS of 3, patient was intubated. Patient was given etomidate and rocuronium. Patient was intubated with a 7.5 ET tube to 22 cm at the lip. Orogastric tube was placed after this. Chest x-ray was obtained after this. There is 1 view. On my interpretation, the endotracheal tube is in appropriate position and the orogastric tube is also in appropriate position. Because of the patient's hypotension, a right triple- lumen central line was placed under ultrasound guidance using Seldinger technique and sterile conditions. Patient tolerated the seizure well. Repeat chest x-ray was obtained after this. There is 1 view. On my interpretation, the line was in the appropriate position just above the right atrium. There is no pneumothorax. Repeat EKG was obtained. On my interpretation, there is sinus bradycardia with a rate of 56. There is some T wave inversion in leads V2 through V6. There is no evidence of STEMI. Case was discussed with Dr. Melvin from ICU. He agrees with the treatment. Case was also discussed with the hospitalist. He will be in to evaluate the patient and admit the patient to ICU. Family understands and is agreeable with the plan. All questions were answered. There was a rhythm change on the monitor. Repeat EKG was obtained. There is a normal sinus rhythm with a rate of 75. There is a left bundle branch block pattern noted. There is left axis deviation. There are no acute ST or T wave changes. Lab Data Attestation: I reviewed the patient's lab results. Labs: Laboratory Results - last 24 hr 07/08/21 07/08/21 07/08/21 17:10 17:10 17:10 WBC 18.8 H RBC 4.41 Hgb 13.3 Hct 44.9 MCV 101.8 H MCH 30.2 MCHC 29.6 L RDW Std Deviation 49.3 H RDW Coeff of Lurdes 13.1 Plt Count 347 MPV 11.3 Neut % (Auto) Not Reportable Absolute Neuts (auto) 15.8 H Absolute Lymphs (auto) 2.07 Total Counted 100 Neutrophils % (Manual) 78 H Band Neutrophils % 6 H Lymphocytes % (Manual) 11 L Monocytes % (Manual) 3 Metamyelocytes % 1 Myelocytes % 1 H Diff Path Review May foll PT INR APTT Sodium 138 Potassium 5.0 Chloride 100 Carbon Dioxide 9.0 L* Anion Gap 29 H BUN 84 H Creatinine 3.52 H Estim Creat Clear Calc 12.77 Est GFR (MDRD) Af Amer 17 L Est GFR (MDRD) Non-Af 14 L BUN/Creatinine Ratio 23.9 H Glucose 950 H* Lactic Acid Calcium 9.5 Total Bilirubin 0.30 AST 69 H ALT 39 Alkaline Phosphatase 101 Total Creatine Kinase 1550 H Troponin I High Sens 8174 H* Total Protein 5.7 L Albumin 2.0 L Globulin 3.7 Albumin/Globulin Ratio 0.5 L Lipase 111 Urine Color Urine Clarity Urine pH Ur Specific [place] Urine Protein Urine Glucose (UA) Urine Ketones Urine Occult Blood Urine Nitrite Urine Bilirubin Urine Urobilinogen Ur Leukocyte Esterase Urine RBC Urine WBC Ur Squamous Epith Cells Urine Bacteria Hyaline Casts Urine Mucus Acetone Level LARGE H POC Glucose 07/08/21 07/08/21 07/08/21 17:30 18:30 18:30 WBC RBC Hgb Hct MCV MCH MCHC RDW Std Deviation RDW Coeff of [place] Plt Count MPV Neut % (Auto) Absolute Neuts (auto) Absolute Lymphs (auto) Total Counted Neutrophils % (Manual) Band Neutrophils % Lymphocytes % (Manual) Monocytes % (Manual) Metamyelocytes % Myelocytes % Diff Path Review PT 17.0 H INR 1.5 APTT 32.7 Sodium Potassium Chloride Carbon Dioxide Anion Gap BUN Creatinine Estim Creat Clear Calc Est GFR (MDRD) Af Amer Est GFR (MDRD) Non-Af BUN/Creatinine Ratio Glucose Lactic Acid 1.9 Calcium Total Bilirubin AST ALT Alkaline Phosphatase Total Creatine Kinase Troponin I High Sens Total Protein Albumin Globulin Albumin/Globulin Ratio Lipase Urine Color Yellow Urine Clarity Clear Urine pH 5.0 Ur Specific [place] 1.020 Urine Protein 500 H Urine Glucose (UA) 1000 H Urine Ketones 15 H Urine Occult Blood 250 H Urine Nitrite Negative Urine Bilirubin Negative Urine Urobilinogen Normal Ur Leukocyte Esterase Negative Urine RBC 0-5 SEEN Urine WBC 0 SEEN Ur Squamous Epith Cells 0-5 SEEN Urine Bacteria RARE Hyaline Casts 0-5 SEEN Urine Mucus 0 SEEN Acetone Level POC Glucose 07/08/21 19:49 WBC RBC Hgb Hct MCV MCH MCHC RDW Std Deviation RDW Coeff of [place] Plt Count MPV Neut % (Auto) Absolute Neuts (auto) Absolute Lymphs (auto) Total Counted Neutrophils % (Manual) Band Neutrophils % Lymphocytes % (Manual) Monocytes % (Manual) Metamyelocytes % Myelocytes % Diff Path Review PT INR APTT Sodium Potassium Chloride Carbon Dioxide Anion Gap BUN Creatinine Estim Creat Clear Calc Est GFR (MDRD) Af Amer Est GFR (MDRD) Non-Af BUN/Creatinine Ratio Glucose Lactic Acid Calcium Total Bilirubin AST ALT Alkaline Phosphatase Total Creatine Kinase Troponin I High Sens Total Protein Albumin Globulin Albumin/Globulin Ratio Lipase Urine Color Urine Clarity Urine pH Ur Specific [place] Urine Protein Urine Glucose (UA) Urine Ketones Urine Occult Blood Urine Nitrite Urine Bilirubin Urine Urobilinogen Ur Leukocyte Esterase Urine RBC Urine WBC Ur Squamous Epith Cells Urine Bacteria Hyaline Casts Urine Mucus Acetone Level POC Glucose > 500 H* ABG Data ABG results: ABG 07/08/21 17:19 Specimen Type ART Sample Site L Fem pH 7.04 L* Bicarbonate Actual 7.2 L Total CO2 8 Base Excess -23 L O2 Saturation 100 H ABG pCO2 26.7 L ABG pO2 288 H Storm Test Positive O2 Delivery Device NRB Liter Flow 15.0 Crit Call To/Read Back Yes Radiography Chest X-Ray - ED: 1 View, Read by ED Physician, Read by Radiologist and Normal Diagnostic Testing: Clinical Impression(s) from Imaging Studies Chest X-Ray 07/08/21 17:14 IMPRESSION: No radiographic evidence of acute cardiopulmonary disease. at 1742 Reported and signed by: Brock Ozuna MD Electronically Signed: Brock Ozuna MD at 17:41 EST Tel , Service support , Brain CT 07/08/21 17:18 IMPRESSION: Hypoattenuation seen within the parietal and occipital lobes bilaterally possibly representing posterior reversible encephalopathy syndrome (PRES). There is no hemorrhage identified. If indicated further evaluation with MRI may be beneficial. Individualized dose optimization techniques were used for this CT. at 2137 Reported and signed by: Brock Ozuna MD Electronically Signed: Brock Ozuna MD at 21:36 EST Tel , Service support , Chest X-Ray 07/08/21 17:46 IMPRESSION: No acute pulmonary abnormality. Support structures in good position. at 1819 Reported and signed by: Brock Ozuna MD Electronically Signed: Brock Ozuna MD at 18:18 EST Tel , Service support , Chest X-Ray 07/08/21 18:15 IMPRESSION: 1. No change in the appearance of the chest from the reference exam. 2. Support structures in good position. at 1909 Reported and signed by: Brock Ozuna MD Electronically Signed: Brock Ozuna MD at 19:08 EST Tel , Service support , EKG Initial EKG: Attestation: I personally reviewed and interpreted this EKG as follows: Interpretation: Sinus Rhythm (71) and S-T Elevation (V2 through V4) Follow-up EKG: Attestation: I personally reviewed and interpreted this EKG as follows: Interpretation: Sinus Rhythm (75) and LBBB Treatment and Re-Evaluation Vital Sign Attestation:: Vital signs were reviewed prior to admission. They are improving. Blood pressure still somewhat low but she is on vasopressors. Critical Care Time Critical Care Time: Yes Critical care time (excluding procedures): 30-74 minutes (67), Including time spent:, Discussing w/Patient &/or Family/Transportation Inspector, Discussing w/Consultants, Arranging Admission or Transfer and Performing Direct Patient Care at Bedside Discharge Plan Dx/Rx/DC Orders Clinical Impression: Diabetic ketoacidosis, Respiratory failure, Non-STEMI (non-ST elevated myocardial infarction), Acute renal failure due to rhabdomyolysis, Leukocytosis Disposition Disposition: Acute Care Hospital [facility] Discharge Date/Time: 07/08/21 20:34
[2021-07-08 17:23] LABS: Hematocrit 44.9 % (37-47); Hemoglobin 13.3 g/dL (12.0-15.0); Mean Corp Hgb Conc 29.6 g/dL (32-36); Mean Corpuscular Hgb 30.2 pg (27.0-32.0); Mean Corpuscular Volume 101.8 fL (81-99); Mean Platelet Vol. 11.3 fl (6.2-12.0); POSITIVE COUNT YES; POSITIVE MORPHOLOGY YES; Platelet Count 347 K/mm3 (150-450); RBC Distribution Width CV 13.1 % (11.6-14.6); RBC Distribution Width SD 49.3 fl (35.1-43.9); Red Blood Count 4.41 M/mm3 (4.2-5.4); White Blood Count 18.8 K/mm3 (4.4-11.0)
[2021-07-08 17:26] LABS: Allen Test Positive; Base Excess -23 mmol/L (-2 to +2); Bicarbonate 7.2 mmol/L (22-26); Blood Gas Specimen Type ART; O2 Delivery Device NRB; PO2 288 mmHG (75-100); SITE L Fem; SO2 100 % (95-99); Total Carbon Dioxide 8 mmol/L; pCO2 26.7 mmHg (35-45); pH 7.04 (7.35-7.45)
[2021-07-08 17:28] LABS: Differential Indicated MANUAL DIFF
[2021-07-08] MEDS: Etomidate 20 MG/10 ML Vial IV (17:28)
[2021-07-08] MEDS: Rocuronium Bromide 50 MG/5 ML Vial IV (17:29)
[2021-07-08] MEDS: Sodium Bicarbonate 8.4% 50 ML Syringe 50 MEQ IV (17:31)
--- NOTE | 2021-07-08 17:33 | CM.ED ---
JAI Note Referral Source: [employer] machine Reason: STEMI JAI responded to STEMI (which was later cancelled). JAI researched who was patient's NOK and advise that NOK and POA, per records, is Linda Reaves. JAI called Linda Reaves and she was advised her mom was in the hospital and to come to the ED. JAI met with patient's friend, Mayra, who found patient today. Mayra said that patient generally comes to her house on Wednesday but didn't come Wednesday and they didn't get in contact with her yesterday. Mayra said that she went to patient's house today and noticed patient had her car in the garage and did not go to work. 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 Mayra said that she has the adler to patient's house and opened the door and came inside. Mayra called . Mayra said that patient and her daughter were estranged for 30 years but have reconnected in the past 1 1/2 year. Emotional support provided. Plan: To be determined Latanya ALEXANDRE
[2021-07-08 17:39] LABS: Mucous, Urine 0 SEEN /hpf (<or=2+); White Blood Cells 0 SEEN /hpf (0-5)
[2021-07-08 17:41] LABS: Color, Urine Yellow (Yellow); Glucose, Dipstick 1000 mg/dl (Normal); Ketone-Dipstick 15 mg/dl (Negative); Leukocyte Esterase-Dipstick Negative /ul (Negative); Nitrite-Dipstick Negative (Negative); Occult Blood-Urine 250 /ul (Negative); Protein-Dipstick 500 mg/dl (Negative); Urine Bilirubin Dipstick Negative (Negative); Urine Clarity Clear (Clear); Urine Urobilinogen Normal (Normal)
[2021-07-08] MEDS: Epinephrine IV 1 mg/10 ml syringe IV (17:46)
--- NOTE | 2021-07-08 17:46 | RAD_ITS ---
EXAM: XR CHEST, 1 VIEW : 1955 CLINICAL INDICATION: LINE PLACEMENT TECHNIQUE: Frontal view of the chest. This report was created using [employer] report generation technology. COMPARISON: 07/08/2021 at 1703 hrs. FINDINGS: LUNGS AND PLEURAL SPACES: Unremarkable. No consolidation or edema. No pneumothorax. No effusion. HEART: Unremarkable. Cardiac silhouette not enlarged. MEDIASTINUM: Central airways and mediastinal contour are unremarkable. BONES/JOINTS: Unremarkable. SOFT TISSUES: Unremarkable. TUBES, LINES AND DEVICES: Endotracheal tube is in place with the distal tip 4.1 cm above the natalya. Nasogastric tube is in place with the distal tip in the proximal to mid stomach. RAD/Chest 1 View IMPRESSION: No acute pulmonary abnormality. Support structures in good position. at 1819 Reported and signed by: Brock Ozuna MD Electronically Signed: Brock Ozuna MD at 18:18 EST Tel , Service support ,
[2021-07-08 17:48] LABS: ALB/GLOB Ratio 0.5 RATIO (0.9-2.4); AST(SGOT) 69 U/L (15-37); Alanine Aminotransfer ALT/SGPT 39 U/L (13-56); Alkaline Phosphatase 101 U/L (45-117); Anion Gap 29 (5-15); BUN/Creat Ratio 23.9 RATIO (10-20); Calcium,Total 9.5 mg/dL (8.5-10.1); Chloride 100 mmol/L (98-107); Creatinine, Serum 3.52 mg/dL (0.55-1.02); EST Glomerular Filtration Rate 14 mL/min (>60); Est Glom Filt Rate - Afr Amer 17 mL/min (>60); Estimated Creatinine Clearance 12.77 ml/min; Globulin 3.7 g/dL (2.2-4.2); Lipase 111 U/L (73-393); Protein, Total 5.7 g/dL (6.4-8.2); Sodium Level 138 mmol/L (136-145)
[2021-07-08 17:53] LABS: Bacteria RARE /hpf (None Seen); Hyaline Cast 0-5 SEEN /lpf (0-5); Red Blood Cells-Urine 0-5 SEEN /hpf (0-5); Squamous Epithelial Cells - UA 0-5 SEEN /hpf (5-10)
[2021-07-08 17:57] LABS: Troponin-I HS 8174 pg/mL (3.0-54.0)
[2021-07-08 17:58] LABS: Lymphocyte 11 % (19-41); Metamyelocyte 1 % (0-1); Monocyte 3 % (0-10); Myelocyte 1 % (0-0); Neutrophil-Band 6 % (0-5); Neutrophil-Segmented 78 % (47-70); Total Cells Counted 100 (MANUAL DIFF)
[2021-07-08 18:00] LABS: Absolute Lymphocyte Count 2.07 X10^3/uL (0.83-4.51); Absolute Neutrophil Count 15.8 X10^3/uL (2.0-7.7)
--- NOTE | 2021-07-08 18:15 | RAD_ITS ---
EXAM: XR CHEST, 1 VIEW : 1955 CLINICAL INDICATION: CENTRAL LINE PLACEMENT TECHNIQUE: Frontal view of the chest. This report was created using [employer] report generation technology. COMPARISON: 07/08/2021 FINDINGS: LUNGS AND PLEURAL SPACES: Unremarkable. No consolidation or edema. No pneumothorax. No effusion. HEART: Unremarkable. Cardiac silhouette not enlarged. MEDIASTINUM: Central airways and mediastinal contour are unremarkable. BONES/JOINTS: Unremarkable. SOFT TISSUES: Unremarkable. TUBES, LINES AND DEVICES: Endotracheal tube and nasogastric tube are in stable position. Right jugular catheter has been placed with the distal tip overlying the superior vena cava. RAD/CXR for Line Placement IMPRESSION: 1. No change in the appearance of the chest from the reference exam. 2. Support structures in good position. at 1909 Reported and signed by: Brock Ozuna MD Electronically Signed: Brock Ozuna MD at 19:08 EST Tel , Service support ,
--- NOTE | 2021-07-08 18:16 | ED.RN ---
PT. ARRIVED UNRESPONSIVE VIA EMS. PT. HAD NO IV ACCESS. EMS TRIED MULTIPLE TIMES. STEMI CALLED AT 1708, WHICH WAS CANCELLED AT APPROX. 1717. IV ACCESS WAS OBTAINED. PT. WAS GIVEN ONE EPI AT 1741. CURRENTLY HAD 2 PERIPHERAL IV SITES AND CENTRAL LINE HAS BEEN PLACED.
--- NOTE | 2021-07-08 18:31 | CM.ED ---
SW Note SW spoke to patient's daughter and friend after the MD and charge aide Krista spoke to them. Patient's daughter, Linda, voiced that they were told that their mom is critical. Linda said that she took care of her grandmother so, while this is somewhat familiar it is new territory as it is related to her mom. 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 Linda said that she also had 45 minutes to process while driving to [facility]. Linda said that the plan is to admit patient to ICU. SW remains available for patient's family and any needs. Plan: Admit to ICU
--- NOTE | 2021-07-08 18:46 | ED.RN ---
INSULIN IN PROXIMAL CENTRAL LINE.
[2021-07-08 18:59] LABS: International Normalized Ratio 1.5
[2021-07-08 19:00] LABS: Partial Thromboplast Time 32.7 Seconds (24.1-36.2)
[2021-07-08 19:05] LABS: Lactic Acid 1.9 mmol/L (0.4-1.9)
--- NOTE | 2021-07-08 19:07 | ED.RN ---
Daughter took purse home.
--- NOTE | 2021-07-08 19:50 | ED.RN ---
DR TRINH NOTIFIED FINGERSTICK GLUCOSE READING HIGH
[2021-07-08 19:56] LABS: Bedside Glucose > 500 mg/dL (70-110)
--- NOTE | 2021-07-08 20:11 | HP.PCM.HOS_ITS ---
HPI - General General Date of Admission: 07/08/21 HPI Narrative GEOVANNY HUFF, is a 66 F with history of diabetes mellitus type 2 for more than 10 years probably has long-term complications, hypertension and possible other undiagnosed conditions she did not follow physician regularly was brought in to ER by EMS in unresponsive state. She has not been seen or heard by her best friend/neighbor since Wednesday evening. As she did not reply today she got concerned and called EMS and was found laying on the bathroom with face down on left side. She has Marxen bruise on the stomach area, hand left knee and right foot. Initial heart rhythm as per EMS was A. fib at 72 to 86 bpm and blood s ugar read was high. As per EMS, BP was 130/102, respiratory rate 12, unlabored, weak thready pulse 78-86, A. fib. In ED, core temperature was found 81.6 Fahrenheit, heart rate 80/min, respiratory 20 and patient was put on 100% nonrebreather mask. Patient was found to be in DKA. Patient was started on IV fluid and insulin drip as per DKA protocol. Initial EKG revealed A. fib with LVH with QRS widening, QTC [address] elevation but not consistent with a STEMI. ER physician talked to Dr. Miguelina tomlinson, project control officer and said her EKG changes are related to metabolic abnormalities. Soon patient was intubated, IV fluid resuscitation with DKA protocol and her blood pressure dropped therefore started on IV norepinephrine. ABG showed 7.0 100% rebreather. BMP bicarb 9, anion gap 29, sodium 138, potassium 5.0, glucose more than 500. Bicarb 50 M EQ was given by ED physician. Lactic acid normal. CK more than 1000, troponin high- sensitivity 8174. INR 1.5. Patient also has black-colored eschar on left maxillary region with swelling of left periorbital region. Subsequently patient required vasopressin. Subsequent EKGs showed sinus bradycardia 56, prolonged QTC. Another EKG also showed wide QRS complex at 75 bpm, LAD, LBBB, QTC 140 ms. Patient subsequently started on bicarb drip. PFSH Medical History Chronic kidney disease, stage III (moderate) Diabetes mellitus, type II Essential hypertension Hyperlipidemia Renal artery stenosis Tobacco use Home Medications atorvastatin 10 mg PO QODAY 12/15/20 [History Last Taken Unknown] glimepiride 2 mg PO DAILY 12/15/20 [History Last Taken Unknown] Jcarlosaglclaudia Dacosta U-100 Insulin 22 unit SUBCUT QHS 12/17/20 [History Last Taken Unknown] aspirin [Aspirin Low Dose] 81 mg PO DAILY 12/17/20 [History Last Taken Unknown] insulin aspart U-100 [Novolog U-100 Insulin aspart] See Protocol SUBCUT 0800,1200,1700 12/17/20 [History Last Taken Unknown] amlodipine [Norvasc] 5 mg PO DAILY #30 tab 12/18/20 [Rx Last Taken Unknown] carvedilol 6.25 mg PO BID #60 tab 12/18/20 [Rx Last Taken Unknown] furosemide [Lasix] 40 mg PO DAILY #30 tab 12/18/20 [Rx Last Taken Unknown] potassium chloride [K-Tab] 10 meq PO DAILY #30 tab 12/18/20 [Rx Last Taken Unknown] ferrous sulfate 325 mg (65 mg iron) tablet 325 mg PO BID tab 01/03/21 [History Last Taken Unknown] polyethylene glycol 3350 17 gram/dose oral powder 17 g PO DAILY PRN 01/03/21 [History Last Taken Unknown] escitalopram oxalate 10 mg tablet 10 mg PO DAILY 06/05/21 [History Last Taken Unknown] Allergy/AdvReac Type Severity Reaction Status Date / Time No Known Allergies Allergy Verified 01/23/21 09:33 Family History Grandfather Diabetes Mother Heart disease Father Diabetes Brother Diabetes Daughter Diabetes Surgical History History of left breast biopsy History of tonsillectomy and adenoidectomy S/P endometrial ablation Social History Smoking Status: Current every day smoker tobacco type: cigarettes alcohol intake: current alcohol intake frequency: a few times a month Alcohol type: beer substance use type: does not use caffeine: Yes Type: carbonated beverages and coffee ROS ROS Narrative 12 ROS unobtainable As per daughter and friend at the bedside, she does not regularly follow physician. Diabetes for more than 10 years. She also smokes cigar. As per daughter, she is not forthcoming about her medical conditions. She has family history of heart conditions although her daughter unknown about personal cardiac history Vital Signs Vital Signs Vital Signs: 07/08/21 17:00 07/08/21 17:08 07/08/21 17:22 Temperature 81.6 F L Temperature Source Core Pulse Rate 80 Respiratory Rate 20 H 18 Respiratory Effort Agonal Respiratory Pattern Blood Pressure Blood Pressure Mean Blood Pressure Source Blood Pressure Position Blood Pressure Location Pulse Ox 100 Oxygen Delivery Method Non-Rebreather Oxygen Flow Rate (L/min) 15 Fraction of Inspired Oxygen (FIO2) 07/08/21 17:26 07/08/21 17:38 07/08/21 17:40 Temperature 81.7 F L Temperature Source Core Pulse Rate 76 68 Respiratory Rate 12 29 H Respiratory Effort Respiratory Pattern Normal Blood Pressure 58/31 L Blood Pressure Mean 40 Blood Pressure Source Blood Pressure Position Blood Pressure Location Pulse Ox 100 100 Oxygen Delivery Method Mechanical Ventilator Oxygen Flow Rate (L/min) Fraction of Inspired Oxygen (FIO2) 50 07/08/21 17:41 07/08/21 17:43 07/08/21 17:45 Temperature 81.8 F L Temperature Source Core Pulse Rate 38 L 106 H 114 H Respiratory Rate 12 Respiratory Effort Respiratory Pattern Blood Pressure 92/74 Blood Pressure Mean 80 Blood Pressure Source Blood Pressure Position Blood Pressure Location Pulse Ox 100 100 Oxygen Delivery Method Mechanical Ventilator Mechanical Ventilator Oxygen Flow Rate (L/min) Fraction of Inspired Oxygen (FIO2) 07/08/21 17:52 07/08/21 18:08 07/08/21 18:15 Temperature 82.2 F L Temperature Source Core Pulse Rate 121 H 93 59 L Respiratory Rate 17 12 15 Respiratory Effort Respiratory Pattern Blood Pressure 123/70 H 131/50 H 109/52 L Blood Pressure Mean 87 77 71 Blood Pressure Source Blood Pressure Position Blood Pressure Location Pulse Ox 100 100 100 Oxygen Delivery Method Mechanical Ventilator Mechanical Ventilator Mechanical Ventilator Oxygen Flow Rate (L/min) Fraction of Inspired Oxygen (FIO2) 50 50 50 07/08/21 18:35 07/08/21 18:46 07/08/21 18:53 Temperature 83.4 F L Temperature Source Core Pulse Rate 55 L 51 L 52 L Respiratory Rate 12 12 12 Respiratory Effort Respiratory Pattern Blood Pressure 89/48 L 82/45 L 58/30 L Blood Pressure Mean 61 57 39 Blood Pressure Source Blood Pressure Position Blood Pressure Location Pulse Ox 100 Oxygen Delivery Method Mechanical Ventilator Oxygen Flow Rate (L/min) Fraction of Inspired Oxygen (FIO2) 50 07/08/21 18:57 07/08/21 19:02 07/08/21 19:08 Temperature 84.2 F L Temperature Source Core Pulse Rate 50 L 73 75 Respiratory Rate 12 12 12 Respiratory Effort Respiratory Pattern Blood Pressure 90/54 L 78/48 L 86/45 L Blood Pressure Mean 66 58 58 Blood Pressure Source Monitor Blood Pressure Position Supine Blood Pressure Location Left Arm Pulse Ox 100 100 100 Oxygen Delivery Method Mechanical Ventilator Mechanical Ventilator Mechanical Ventilator Oxygen Flow Rate (L/min) Fraction of Inspired Oxygen (FIO2) 50 35 35 07/08/21 19:14 07/08/21 19:21 07/08/21 19:31 Temperature 84.9 F L Temperature Source Core Pulse Rate 90 84 85 Respiratory Rate 12 12 12 Respiratory Effort Respiratory Pattern Blood Pressure 97/52 L 106/52 L 92/50 L Blood Pressure Mean 67 70 64 Blood Pressure Source Monitor Monitor Blood Pressure Position Supine Supine Blood Pressure Location Left Arm Left Arm Pulse Ox 100 100 100 Oxygen Delivery Method Mechanical Ventilator Mechanical Ventilator Mechanical Ventilator Oxygen Flow Rate (L/min) Fraction of Inspired Oxygen (FIO2) 35 35 07/08/21 19:36 Temperature Temperature Source Pulse Rate 85 Respiratory Rate 12 Respiratory Effort Respiratory Pattern Blood Pressure 92/46 L Blood Pressure Mean 61 Blood Pressure Source Monitor Blood Pressure Position Supine Blood Pressure Location Left Arm Pulse Ox 100 Oxygen Delivery Method Mechanical Ventilator Oxygen Flow Rate (L/min) Fraction of Inspired Oxygen (FIO2) 35 Weight Weight: 133 lb 9.602 oz Body Mass Index (BMI) 24.4 Physical Exam Narrative General: Unresponsive, intubated. HEENT: Left periorbital edema and swelling. Pupil size about 3 mm, not reactive to light. Sedated Oral: ET and OG tube Neck: Supple, No JVD, Negative Carotid Bruits Lungs: Air entry diminished in bilateral lung bases. No crepitation/rhonchi Cardiovascular: Wide-complex QRS. Irregular rhythm, muffled heart sound, no murmurs Abdomen: OG tube brown/coffee colored. Bowel Sounds absent, soft nontender. : No renal angle tenderness. No suprapubic tenderness. Extremities: No edema, Capillary Refill Less than 3 Seconds Skin: black-colored eschar on left maxillary region. Small bruises over right hand, left leg and right foot Musculoskeletal: Tenderness/ROM cannot examine because of sedation Neurological: Neuro exam unobtainable. Psych/Mental Status: Unconscious, unresponsive Results Lab / Micro Data Result Diagrams: 07/08/21 17:10 07/08/21 17:10 Labs: Laboratory Results - last 24 hr 07/08/21 17:10: WBC 18.8 H, RBC 4.41, Hgb 13.3, Hct 44.9, MCV 101.8 H, MCH 30.2, MCHC 29.6 L, RDW Std Deviation 49.3 H, RDW Coeff of Lurdes 13.1, Plt Count 347, MPV 11.3, Neut % (Auto) Not Reportable, Absolute Neuts (auto) 15.8 H, Absolute Lymphs (auto) 2.07, Total Counted 100, Neutrophils % (Manual) 78 H, Band Neutrophils % 6 H, Lymphocytes % (Manual) 11 L, Monocytes % (Manual) 3, Metamyelocytes % 1, Myelocytes % 1 H, Diff Path Review December07/08/21 17:10: Sodium 138, Potassium 5.0, Chloride 100, Carbon Dioxide 9.0 L*, Anion Gap 29 H, BUN 84 H, Creatinine 3.52 H, Estim Creat Clear Calc 12.77, Est GFR (MDRD) Af Amer 17 L, Est GFR (MDRD) Non-Af 14 L, BUN/Creatinine Ratio 23.9 H , Glucose > 500 H*, Calcium 9.5, Total Bilirubin 0.30, AST 69 H, ALT 39, Alkaline Phosphatase 101, Total Creatine Kinase > 1000 H, Troponin I High Sens 8174 H*, Total Protein 5.7 L, Albumin 2.0 L, Globulin 3.7, Albumin/Globulin Ratio 0.5 L, Lipase 111 07/08/21 17:10: Acetone Level LARGE H 07/08/21 17:30: Urine Color Yellow, Urine Clarity Clear, Urine pH 5.0, Ur Specific [place] 1.020, Urine Protein 500 H, Urine Glucose (UA) 1000 H, Urine Ke tones 15 H, Urine Occult Blood 250 H, Urine Nitrite Negative, Urine Bilirubin Negative, Urine Urobilinogen Normal, Ur Leukocyte Esterase Negative, Urine RBC 0-5 SEEN, Urine WBC 0 SEEN, Ur Squamous Epith Cells 0-5 SEEN, Urine Bacteria RARE, Hyaline Casts 0-5 SEEN, Urine Mucus 0 SEEN 07/08/21 18:30: PT 17.0 H, INR 1.5, APTT 32.7 07/08/21 18:30: Lactic Acid 1.9 07/08/21 19:49: POC Glucose > 500 H* Micro: Microbiology 07/08/21 18:32 Nasal Secretion SARS-CoV-2 Antigen (Rapid) - Final ABG Data ABG results: ABG 07/08/21 17:19 Specimen Type ART Sample Site L Fem pH 7.04 L* Bicarbonate Actual 7.2 L Total CO2 8 Base Excess -23 L O2 Saturation 100 H ABG pCO2 26.7 L ABG pO2 288 H Storm Test Positive O2 Delivery Device NRB Liter Flow 15.0 Crit Call To/Read Back Yes Radiology Impression Chest X-Ray 07/08/21 17:14 IMPRESSION: No radiographic evidence of acute cardiopulmonary disease. at 1742 Reported and signed by: Brock Ozuna MD Electronically Signed: Brock Ozuna MD at 17:41 EST Tel , Service support , Chest X-Ray 07/08/21 17:46 IMPRESSION: No acute pulmonary abnormality. Support structures in good position. at 1819 Reported and signed by: Brock Ozuna MD Electronically Signed: Brock Ozuna MD at 18:18 EST Tel , Service support , Chest X-Ray 07/08/21 18:15 IMPRESSION: 1. No change in the appearance of the chest from the reference exam. 2. Support structures in good position. at 1909 Reported and signed by: Brock Ozuna MD Electronically Signed: Brock Ozuna MD at 19:08 EST Tel , Service support , Assessment & Plan Assessment/Plan (1) Respiratory failure: (2) Non-STEMI (non-ST elevated myocardial infarction): (3) Diabetic ketoacidosis: PLAN: 1. Shock undifferentiated, unclear etiology with hypothermia: Patient is being admitted in ICU. Patient already on Levophed. Started on vasopressin. Discussed with stone processing machine operator and started on Solu-Cortef 100 mg every 8 hourly. Broad-spectrum antibiotic empirically Zosyn. Patient has leukocytosis with left shift but normal lactic acid. panculture, blood cultures and urine culture. UA is negative for pyuria. LE and nitrite negative. 2. Acute hypoxic respiratory failure probably due to shock: Patient is intubated on AC mode ventilator. Paver Layer has been consulted. 3. DKA with high anion gap metabolic acidosis with history of diabetes mellitus type 2: Patient is on IV fluid normal saline, insulin drip as per DKA protocol. ABG repeat ordered. Started on bicarb drip. Monitor BMP every 4 hourly. Titrate IV fluid and correct electrolytes as per labs. 4. Arrhythmia with high troponin suggestive of non-STEMI possible type II IN probably due to metabolic abnormality/high anion gap acidosis: ER physician discussed with Dr. Grimaldo. Wide QRS complex, repolarization abnormality and sometimes A. fib and prolonged QTC. QTC 610 ms. Patient on bicarb drip. Monitor EKG. Cycle isolated troponins. 5. Acute kidney injury on CKD stage IV with rhabdomyolysis with prolonged fall: On IV fluid. Monitor CK daily. Monitor kidney function. Patient has Whalen catheter. Urine is clear. 6. Other chronic multiple comorbidities hypertension, renal artery stenosis, hypertensive heart failure and nonadherent physician follow-up: Multiple comorbidities complicates the present care and expect difficult and delay recovery Living will/advanced directive/end of life care: Patient does not have living will or advanced directive. As per her daughter near the bedside she did not want to do CPR. Patient is already intubated on vasopressor. After discussion of benefits/risks procedures involved with full code, DNR CC arrest and DNR CC, the patient's daughter opted for DNR-CC Arrest with intubation The patient's daughter okay with intubation, tube feed, ventilator, central venous catheter, vasopressor and DC shock if needed Total time spent in [id number] encounter in discussion of advanced directive 16 minutes. Charges/Coding Visit Charges Inpatient E&M: 00510 Init Hosp L3 Procedures Hospitalists Procedures: 00237 Advncd Care Plan 30 Min
[2021-07-08 20:19] LABS: CPK Total, Creatine Kinase 1550 U/L (26-192)
[2021-07-08 20:22] LABS: Glucose 950 mg/dL (74-106)
[2021-07-08 20:23] LABS: BUN 84 mg/dL (7-18)
--- NOTE | 2021-07-08 21:22 | EKG12_ITS ---
Test Reason : UNRESPONSIVE Blood Pressure : / mmHG Vent. Rate : 071 BPM Atrial Rate : 068 BPM P-R Int : 000 ms QRS Dur : 118 ms QT Int : 562 ms P-R-T Axes : 000 -07 142 degrees QTc Int : 610 ms Atrial fibrillation Left ventricular hypertrophy with QRS widening ST elevation consider anterior injury or acute infarct Confirmed by CLAUDIA OQUENDO, YUNG ([id number]), editorial intern TULIO MCFARLAND ([id number]) on 07/09/2021 2:07:30 PM Referred By: Karri Grimaldo Confirmed By:YUNG TAYLOR MD
[2021-07-08] MEDS: Hydrocortisone Sod Succinate 100 MG/2 ML Vial IV (21:27)
[2021-07-08 21:30] LABS: Base Excess -20 mmol/L (-2 to +2); Bicarbonate 10.8 mmol/L (22-26); Blood Gas Specimen Type ART; FI02 35; Mode AC; O2 Delivery Device Adult Vent; PEEP 5; PO2 127 mmHG (75-100); RR 12; SITE L Brach; SO2 97 % (95-99); Total Carbon Dioxide 12 mmol/L; Vt 350; pH 7.06 (7.35-7.45)
[2021-07-08] MEDS: 0.9% Normal Saline 1,000 ML 250 ML IV (21:31)
--- NOTE | 2021-07-08 21:39 | PCM.RX.CS ---
Consult Pharmacy has been consulted to manage selected antiobiotic: Vancomycin Type of Consult: New start Suspected Infection: Sepsis Microbiology: Microbiology 07/08/21 18:32 Nasal Secretion SARS-CoV-2 Antigen (Rapid) - Final Goal Trough: 15-20 mcg/mL Pharmacy Plan for Drug Dosing: NEW START IV VANCOMYCIN Consulting Physician: Dr. Mesa Indication: Shock Goal Trough: 15-20 SrCr: 3.52 CrCl: 13 ml/min Comments: Patient has ordered standard dosing and a high trough. Given CrCl <20, will send initial dose to floor and obtain a random level and dose based on levels until SCr improves Vancomcyin Dose: 1g IV x1 Pending Level: *RANDOM* level 07/10/21 with AM labs Pharmacy Service will continue to monitor and adjust dosing as required.
[2021-07-08] MEDS: Vancomycin IV 1,000 MG/200 ML BAG 200 MG IV (21:48)
[2021-07-08 21:59] LABS: ALB/GLOB Ratio 0.5 RATIO (0.9-2.4); AST(SGOT) 116 U/L (15-37); Alanine Aminotransfer ALT/SGPT 51 U/L (13-56); Albumin, Serum 1.7 g/dL (3.2-5.0); Alkaline Phosphatase 97 U/L (45-117); Anion Gap 25 (5-15); BUN 76 mg/dL (7-18); BUN/Creat Ratio 24.1 RATIO (10-20); Calcium,Total 7.7 mg/dL (8.5-10.1); Chloride 111 mmol/L (98-107); Creatinine, Serum 3.15 mg/dL (0.55-1.02); EST Glomerular Filtration Rate 16 mL/min (>60); Est Glom Filt Rate - Afr Amer 19 mL/min (>60); Estimated Creatinine Clearance 14.27 ml/min; Globulin 3.3 g/dL (2.2-4.2); Glucose 915 mg/dL (74-106); Magnesium 2.7 mg/dL (1.6-2.6); Potassium 3.6 mmol/L (3.5-5.1); Sodium Level 147 mmol/L (136-145)
[2021-07-08 22:23] LABS: Troponin-I HS 8842 pg/mL (3.0-54.0)
[2021-07-08] MEDS: HEPARIN/D5w 25,000 UNITS 25,000 UNITS/250 ML IV.SOLN. 8 UNITS IV (23:46)
[2021-07-08] MEDS: Aspirin 325 MG Tablet PO (23:47)
[2021-07-08] MEDS: Heparin Injection (Vial) 5,000 UNIT/ML VIAL 4000 UNIT IV (23:55)
[2021-07-09] VITALS (60 sets, daily range): BP systolic 58–115; BP diastolic 44–69; PULSE 79–118; RESP 12–29; TEMP 33.4–38.9; O2SAT 69–100
[2021-07-09 00:13] LABS: Troponin-I HS 8500 pg/mL (3.0-54.0)
[2021-07-09 01:24] LABS: Anion Gap 20 (5-15); BUN 73 mg/dL (7-18); BUN/Creat Ratio 24.5 RATIO (10-20); Calcium,Total 7.2 mg/dL (8.5-10.1); Chloride 111 mmol/L (98-107); Creatinine, Serum 2.98 mg/dL (0.55-1.02); EST Glomerular Filtration Rate 17 mL/min (>60); Est Glom Filt Rate - Afr Amer 20 mL/min (>60); Estimated Creatinine Clearance 15.78 ml/min; Glucose 923 mg/dL (74-106); Potassium 3.2 mmol/L (3.5-5.1); Sodium Level 145 mmol/L (136-145)
[2021-07-09 01:30] LABS: M R Staph aureus DNA By PCR Negative (Negative); Probe Check PASS; Specimen Processing Control PASS
[2021-07-09] MEDS: 0.9% Normal Saline 1,000 ML 250 ML IV (01:31)
[2021-07-09 01:52] LABS: Anion Gap 19 (5-15); BUN 74 mg/dL (7-18); BUN/Creat Ratio 24.1 RATIO (10-20); Chloride 112 mmol/L (98-107); Creatinine, Serum 3.07 mg/dL (0.55-1.02); EST Glomerular Filtration Rate 16 mL/min (>60); Est Glom Filt Rate - Afr Amer 20 mL/min (>60); Estimated Creatinine Clearance 15.31 ml/min; Glucose 830 mg/dL (74-106); Potassium 3.1 mmol/L (3.5-5.1); Sodium Level 147 mmol/L (136-145)
--- NOTE | 2021-07-09 02:05 | NURSING ---
BMPs sent at 2305 then at 011. Took awhile before getting results for serum glucose. For 2304 BMP results were called at 0130 then Insulin drip was changed according to protocol. 114 BMP results were called at 0200 and insulin drip was changed according to protocol. Will now redraw BMP at 0300 after this last change due to glucose still greater than 500.
--- NOTE | 2021-07-09 02:29 | EKG12_ITS ---
Test Reason : DYSRHYTHMIA Blood Pressure : / mmHG Vent. Rate : 099 BPM Atrial Rate : 099 BPM P-R Int : 096 ms QRS Dur : 088 ms QT Int : 358 ms P-R-T Axes : 085 046 152 degrees QTc Int : 459 ms Sinus rhythm with short [place] Right atrial enlargement ST & T wave abnormality, consider inferior ischemia ST & T wave abnormality, consider anterolateral ischemia Abnormal ECG Confirmed by CLAUDIA OQUENDO, YUNG ([id number]), staff editor TULIO MCFARLAND ([id number]) on 07/15/2021 1:30:33 PM Referred By: Karri Grimaldo Confirmed By:YUNG TAYLOR MD
[2021-07-09 02:31] LABS: Platelet Estimate ADEQUATE (ADEQ); Red Cell Morphology NORM C+C NORMAL (NORM C&C)
[2021-07-09 03:16] LABS: Basophil# 0.03 X10^3/uL; Hematocrit 33.2 % (37-47); Hemoglobin 10.7 g/dL (12.0-15.0); Mean Corp Hgb Conc 32.2 g/dL (32-36); Mean Corpuscular Hgb 30.1 pg (27.0-32.0); Mean Corpuscular Volume 93.5 fL (81-99); Mean Platelet Vol. 10.2 fl (6.2-12.0); Monocyte# 0.28 X10^3/uL; NRBC Flagged by Analyzer 0 % (0-5); POSITIVE MORPHOLOGY YES; Platelet Count 252 K/mm3 (150-450); RBC Distribution Width CV 12.5 % (11.6-14.6); RBC Distribution Width SD 43.2 fl (35.1-43.9); Red Blood Count 3.55 M/mm3 (4.2-5.4); White Blood Count 4.8 K/mm3 (4.4-11.0)
[2021-07-09 03:24] LABS: Differential Indicated SCAN CRITERIA MET
[2021-07-09 03:48] LABS: Phosphorus 4.4 mg/dL (2.5-4.9)
[2021-07-09 03:54] LABS: Anion Gap 17 (5-15); BUN 78 mg/dL (7-18); BUN/Creat Ratio 26.1 RATIO (10-20); Calcium,Total 6.9 mg/dL (8.5-10.1); Chloride 113 mmol/L (98-107); Creatinine, Serum 2.99 mg/dL (0.55-1.02); EST Glomerular Filtration Rate 17 mL/min (>60); Est Glom Filt Rate - Afr Amer 20 mL/min (>60); Estimated Creatinine Clearance 15.72 ml/min; Glucose 750 mg/dL (74-106); Magnesium 2.1 mg/dL (1.6-2.6); Potassium 3.1 mmol/L (3.5-5.1); Sodium Level 148 mmol/L (136-145)
[2021-07-09 04:03] LABS: Scan Smear per Review Criteria MANUAL DIFF
[2021-07-09 04:06] LABS: CPK Total, Creatine Kinase 3189 U/L (26-192)
[2021-07-09 04:08] LABS: Lymphocyte 23 % (19-41); Metamyelocyte 23 % (0-1); Monocyte 2 % (0-10); Myelocyte 1 % (0-0); Neutrophil-Band 6 % (0-5); Neutrophil-Segmented 45 % (47-70); Total Cells Counted 100 (MANUAL DIFF)
[2021-07-09 04:14] LABS: Absolute Neutrophil Count 3.6 X10^3/uL (2.0-7.7)
[2021-07-09 04:15] LABS: Platelet Estimate ADEQUATE (ADEQ)
[2021-07-09 04:16] LABS: Red Cell Morphology NORM C+C NORMAL (NORM C&C)
[2021-07-09 05:06] LABS: Bedside Glucose > 500 mg/dL (70-110)
[2021-07-09] MEDS: Hydrocortisone Sod Succinate 100 MG/2 ML Vial IV ×3 (05:17→21:51)
[2021-07-09] MEDS: 0.9% Saline Lock 10 ML Syringe IV ×2 (05:17→15:09)
[2021-07-09] MEDS: Potassium Chloride 20mEq/100mL 20 MEQ/100 ML IV.SOLN. 100 MEQ IV BOLUS ×2 (05:18→06:36)
--- NOTE | 2021-07-09 05:29 | EX.PCM.CONCC ---
Assessment & Plan Assessment/Plan (1) Encephalopathy: PLAN: RECOMMENDATIONS: 1. Continue vasopressor support as ordered to maintain a mean arterial pressure at or above 65 mmHg. 2. Continue stress dose steroids. 3. Stop continuous IV fluids. 4. Continue bicarbonate containing fluids. 5. Continue antimicrobials. 6. Continue heparin infusion and aspirin for now, per cardiology recommendations. 7. Continue PPI therapy as ordered. 8. Avoid sedating medications. 9. Ongoing goals of care discussion with the patient's family. IMPRESSIONS: 1. Gram-negative septic shock The patient presented to the hospital after being found down at home and was subsequently found to have gram-negative bacteremia. The patient has been more than adequately volume resuscitated, but is requiring high doses of multiple different vasopressors in an attempt to maintain hemodynamic stability. Accordingly, stress dose steroids will also be continued. Given the propensity to develop hyperchloremic metabolic acidosis, normal saline infusion has been discontinued. 2. Encephalopathy Likely multifactorial in etiology. The patient did have findings concerning for possible PRES on head imaging and has significant underlying metabolic derangements. She is currently comatose on the ventilator, despite not having received any sedating medications. This portends a very poor prognosis. Plan to continue current supportive measures as noted above. Will obtain repeat arterial blood gas this morning. 3. Acute hypoxemic respiratory failure The patient was intubated in the emergency department over concerns for airway protection in the setting of encephalopathy. Continue assist control mode of mechanical ventilation and wean FiO2 for saturations greater than 90%. 4. Diabetic ketoacidosis The patient has been adequately volume resuscitated and will remain on a continuous insulin infusion until anion gap has been closed x2. Continue to monitor and replete electrolytes as needed. 5. Acute on chronic kidney disease Likely prerenal in etiology in the setting of septic shock and has moderate diuresis from diabetic ketoacidosis. Continue supportive measures for now. I did confirm with the patient's family that they would not entertain the idea of dialysis if renal function does not improve. 6. Non-ST segment elevation ME Continue aspirin and heparin per cardiology recommendations. 7. History of hypertension/hyperlipidemia/diabetes mellitus Complicates care, management, recovery and prognosis. Hold home medications. Continue insulin infusion as ordered. UPDATE: I did speak personally with the patient's daughter at the bedside this morning, who indicated that if the patient does not make any meaningful improvement by tomorrow that they would consider palliative withdrawal of life support. TIME: 42 minutes of critical care time, independent of procedures, was spent addressing the patient's gram-negative septic shock, encephalopathy, acute respiratory failure, diabetic ketoacidosis, acute on chronic kidney disease, NSTEMI, review of all data and collaboration with the care team. HPI Consult Data Date of Consult: 07/09/21 HPI Narrative Reason for Consultation: Shock, respiratory failure HPI Narrative: The patient is a 66-year-old female, with a history as outlined below, who presented to the emergency department on July 08 after being found unresponsive, pinned between her toilet and wall. The patient was last known to be well Wednesday evening, per EMS documentation. History pertinent to her hospitalization was obtained primarily via chart review, as the patient is currently intubated and there is no family available at the bedside. She does have a documented medical history that includes hypertension, hyperlipidemia, chronic kidney disease, diabetes mellitus, anemia. On presentation to the emergency department, the patient was notably hypothermic and hypotensive. She was emergently intubated on arrival. Initial laboratory evaluation revealed an elevated white blood cell count to 19,000, with significant left shift. INR was noted to be 1.5. Chemistry profile was notable for a bicarbonate of 9.0, anion gap of 29, BUN of 84 and creatinine of 3.52. Glucose was elevated to 950. The patient's last hemoglobin A1c in January 2021 was 10.3. Lactate was normal at 1.9. AST was mildly increased to 69. Total CK was elevated at 1550. Troponin was increased to 8174. Urinalysis was largely unrevealing. Large serum acetone level was noted. MRSA screen was negative. Chest x-ray showed no acute cardiopulmonary process. CT head revealed hypoattenuation in the parietal and occipital lobes bilaterally potentially representing PRES. The patient received supplemental IV fluids, and was ultimately placed on vasopressor support due to fluid refractory hypotension. Antimicrobials and a continuous insulin infusion were initiated. The patient was subsequently transferred to the medical intensive care unit for further management. Overnight, the patient's vasopressor requirement has increased. She is now on a combination of Levophed, vasopressin and epinephrine along with stress dose steroids. She has not received any form of sedation and remains unresponsive. Sodium is elevated this morning to 148 with a potassium of 3.1, chloride of 113, bicarbonate of 18, anion gap of 17 and creatinine of 2.99. Glucose remains elevated at 693. Preliminary blood cultures were positive for gram-negative rods. [facility] Medical History Chronic kidney disease, stage III (moderate) Diabetes mellitus, type II Essential hypertension Hyperlipidemia Renal artery stenosis Tobacco use Home Medications atorvastatin 10 mg PO QODAY 12/15/20 [History Last Taken Unknown] glimepiride 2 mg PO DAILY 12/15/20 [History Last Taken Unknown] Basaglar KwikPen U-100 Insulin 22 unit SUBCUT QHS 12/17/20 [History Last Taken Unknown] aspirin [Aspirin Low Dose] 81 mg PO DAILY 12/17/20 [History Last Taken Unknown] insulin aspart U-100 [Novolog U-100 Insulin aspart] See Protocol SUBCUT 0800,1200,1700 12/17/20 [History Last Taken Unknown] amlodipine [Norvasc] 5 mg PO DAILY #30 tab 12/18/20 [Rx Last Taken Unknown] carvedilol 6.25 mg PO BID #60 tab 12/18/20 [Rx Last Taken Unknown] furosemide [Lasix] 40 mg PO DAILY #30 tab 12/18/20 [Rx Last Taken Unknown] potassium chloride [K-Tab] 10 meq PO DAILY #30 tab 12/18/20 [Rx Last Taken Unknown] ferrous sulfate 325 mg (65 mg iron) tablet 325 mg PO BID tab 01/03/21 [History Last Taken Unknown] polyethylene glycol 3350 17 gram/dose oral powder 17 g PO DAILY PRN 01/03/21 [History Last Taken Unknown] escitalopram oxalate 10 mg tablet 10 mg PO DAILY 06/05/21 [History Last Taken Unknown] Allergy/AdvReac Type Severity Reaction Status Date / Time No Known Allergies Allergy Verified 01/23/21 09:33 Family History Grandfather Diabetes Mother Heart disease Father Diabetes Brother Diabetes Daughter Diabetes Surgical History History of left breast biopsy History of tonsillectomy and adenoidectomy S/P endometrial ablation Social History Smoking Status: Current every day smoker tobacco type: cigarettes alcohol intake: current alcohol intake frequency: a few times a month Alcohol type: beer substance use type: does not use caffeine: Yes Type: carbonated beverages and coffee ROS Review of Systems ROS Unobtainable: due to endotracheal tube Physical Exam Const General Appearance: intubated and patient mechanically ventilated Orientation / Consciousness: comatose HEENT normocephalic and head/scalp atraumatic Mouth: endotracheal tube in place and OG tube in place Eyes Pupil: fixed Neck supple General: trachea midline and CVC in place Chest inspection of chest normal Resp Auscultation: Negative for rales, rhonchi or wheezes Cardio regular rate and regular rhythm GI normal to inspection, nondistended, normoactive bowel sounds Extremity no clubbing, cyanosis or edema Skin Wound Narrative: Multiple pressure wounds noted Neuro Neuro Narrative: The patient is currently comatose on the ventilator. There is no pupillary or gag reflex noted. The patient does not initiate spontaneous breaths on spontaneous mode of mechanical ventilation. Lab / Micro Data Result Diagrams: 07/09/21 03:05 07/09/21 12:05 Labs: Laboratory Results - last 24 hr 07/08/21 17:10: WBC 18.8 H, RBC 4.41, Hgb 13.3, Hct 44.9, MCV 101.8 H, MCH 30.2, MCHC 29.6 L, RDW Std Deviation 49.3 H, RDW Coeff of Lurdes 13.1, Plt Count 347, MPV 11.3, Neut % (Auto) Not Reportable, Absolute Neuts (auto) 15.8 H, Absolute Lymphs (auto) 2.07, Total Counted 100, Neutrophils % (Manual) 78 H, Band Neutrophils % 6 H, Lymphocytes % (Manual) 11 L, Monocytes % (Manual) 3, Metamyelocytes % 1, Myelocytes % 1 H, Diff Path Review May foll, Platelet Estimate ADEQUATE, RBC Morphology NORM C+C 07/08/21 17:10: Sodium 138, Potassium 5.0, Chloride 100, Carbon Dioxide 9.0 L*, Anion Gap 29 H, BUN 84 H, Creatinine 3.52 H, Estim Creat Clear Calc 12.77, Est GFR (MDRD) Af Amer 17 L, Est GFR (MDRD) Non-Af 14 L, BUN/Creatinine Ratio 23.9 H, Glucose 950 H*, Calcium 9.5, Total Bilirubin 0.30, AST 69 H, ALT 39, Alkaline Phosphatase 101, Total Creatine Kinase 1550 H, Troponin I High Sens 8174 H*, Total Protein 5.7 L, Albumin 2.0 L, Globulin 3.7, Albumin/Globulin Ratio 0.5 L, Lipase 111 07/08/21 17:10: Acetone Level LARGE H 07/08/21 17:30: Urine Color Yellow, Urine Clarity Clear, Urine pH 5.0, Ur Specific Brothers 1.020, Urine Protein 500 H, Urine Glucose (UA) 1000 H, Urine Ketones 15 H, Urine Occult Blood 250 H, Urine Nitrite Negative, Urine Bilirubin Negative, Urine Urobilinogen Normal, Ur Leukocyte Esterase Negative, Urine RBC 0-5 SEEN, Urine WBC 0 SEEN, Ur Squamous Epith Cells 0-5 SEEN, Urine Bacteria RARE, Hyaline Casts 0-5 SEEN, Urine Mucus 0 SEEN 07/08/21 18:30: PT 17.0 H, INR 1.5, APTT 32.7 07/08/21 18:30: Lactic Acid 1.9 07/08/21 19:49: POC Glucose > 500 H* 07/08/21 21:09: POC Glucose > 500 H* 07/08/21 21:10: Sodium 147 H, Potassium 3.6, Chloride 111 H, Carbon Dioxide 11.0 L, Anion Gap 25 H, BUN 76 H, Creatinine 3.15 H, Estim Creat Clear Calc 14.27, Est GFR (MDRD) Af Amer 19 L, Est GFR (MDRD) Non-Af 16 L, BUN/Creatinine Ratio 24.1 H, Glucose 915 H*, Calcium 7.7 L, Phosphorus 8.0 H, Magnesium 2.7 H, Total Bilirubin 0.30, AST 116 H, ALT 51, Alkaline Phosphatase 97, Total Protein 5.0 L, Albumin 1.7 L, Globulin 3.3, Albumin/Globulin Ratio 0.5 L 07/08/21 21:10: Troponin I High Sens 8842 H* 07/08/21 22:35: MRSA (PCR) Negative 07/08/21 23:05: Sodium 145, Potassium 3.2 L, Chloride 111 H, Carbon Dioxide 14.0 L, Anion Gap 20 H, BUN 73 H, Creatinine 2.98 H, Estim Creat Clear Calc 15.78, Est GFR (MDRD) Af Amer 20 L, Est GFR (MDRD) Non-Af 17 L, BUN/Creatinine Ratio 24.5 H, Glucose 923 H*, Calcium 7.2 L 07/08/21 23:05: Troponin I High Sens 8500 H* 07/09/21 01:15: Sodium 147 H, Potassium 3.1 L, Chloride 112 H, Carbon Dioxide 16.0 L, Anion Gap 19 H, BUN 74 H, Creatinine 3.07 H, Estim Creat Clear Calc 15.31, Est GFR (MDRD) Af Amer 20 L, Est GFR (MDRD) Non-Af 16 L, BUN/Creatinine Ratio 24.1 H, Glucose 830 H*, Calcium 7.0 L 07/09/21 03:05: Sodium 148 H, Potassium 3.1 L, Chloride 113 H, Carbon Dioxide 18.0 L, Anion Gap 17 H, BUN 78 H, Creatinine 2.99 H, Estim Creat Clear Calc 15.72, Est GFR (MDRD) Af Amer 20 L, Est GFR (MDRD) Non-Af 17 L, BUN/Creatinine Ratio 26.1 H, Glucose 750 H*, Calcium 6.9 L, Magnesium 2.1 07/09/21 03:05: WBC 4.8, RBC 3.55 L, Hgb 10.7 L, Hct 33.2 L, MCV 93.5 D, MCH 30.1, MCHC 32.2 D, RDW Std Deviation 43.2, RDW Coeff of Lurdes 12.5, Plt Count 252, MPV 10.2, Immature Gran % (Auto) [facility], Neut % (Auto) [facility], Lymph % (Auto) [facility], [place] % (Auto) [facility], Eos % (Auto) [facility], Baso % (Auto) [facility], Absolute Neuts (auto) 3.6, Absolute Lymphs (auto) 1.10, Total Counted 100, Neutrophils % (Manual) 45 L, Band Neutrophils % 6 H, Lymphocytes % (Manual) 23, Monocytes % (Manual) 2, Metamyelocytes % 23 H, Myelocytes % 1 H, Nucleated RBC % 0, Diff Path Review December, Platelet Estimate ADEQUATE, RBC Morphology NORM C+C 07/09/21 03:05: Total Creatine Kinase 3189 H 07/09/21 03:05: Acetone Level MODERATE H 07/09/21 03:05: Phosphorus 4.4 Micro: Microbiology 07/08/21 18:30 Blood Culture (Wb) - Central Line Blood Culture - Preliminary 07/08/21 22:25 Urine Catheter - [place] Legionella Antigen - Final 07/08/21 22:25 Urine Catheter - [place] Streptococcus pneumoniae Antigen (M - Final 07/08/21 22:25 Interface Orders Stool Occult Blood (AURELIO) - Final 07/08/21 18:32 Nasal Secretion SARS-CoV-2 Antigen (Rapid) - Final ABG Data ABG results: ABG 07/08/21 07/08/21 17:19 21:25 Specimen Type ART ART Sample Site L Fem L Brach pH 7.04 L* 7.06 L* Bicarbonate Actual 7.2 L 10.8 L Total CO2 8 12 Base Excess -23 L -20 L O2 Saturation 100 H 97 O2 % 35 ABG pCO2 26.7 L 38.0 ABG pO2 288 H 127 H Storm Test Positive N/A Respiration Rate 12 O2 Delivery Device NRB Adult Vent Liter Flow 15.0 Vent Mode AC Tidal Volume 350 POC PEEP 5 Crit Call To/Read Back Yes Yes Blood Gas Notified Whom [facility] Impression Chest X-Ray 07/08/21 17:14 IMPRESSION: No radiographic evidence of acute cardiopulmonary disease. at 1742 Reported and signed by: Brock Ozuna MD Electronically Signed: Brock Ozuna MD at 17:41 EST Tel , Service support , Brain CT 07/08/21 17:18 IMPRESSION: Hypoattenuation seen within the parietal and occipital lobes bilaterally possibly representing posterior reversible encephalopathy syndrome (PRES). There is no hemorrhage identified. If indicated further evaluation with MRI may be beneficial. Individualized dose optimization techniques were used for this CT. at 2876 Reported and signed by: Brock Ozuna MD Electronically Signed: Brock Ozuna MD at 21:36 EST Tel , Service support , Chest X-Ray 07/08/21 17:46 IMPRESSION: No acute pulmonary abnormality. Support structures in good position. at 1819 Reported and signed by: Brock Ozuna MD Electronically Signed: Brock Ozuna MD at 18:18 EST Tel , Service support , Chest X-Ray 07/08/21 18:15 IMPRESSION: 1. No change in the appearance of the chest from the reference exam. 2. Support structures in good position. at 1909 Reported and signed by: Brock Ozuna MD Electronically Signed: Brock Ozuna MD at 19:08 EST Tel , Service support , Charges/Coding Procedures Hospitalists Procedures: [id number] [facility] [address] Hr
[2021-07-09 05:56] LABS: Glucose 693 mg/dL (74-106)
[2021-07-09 06:18] LABS: Partial Thromboplast Time > 250.0 Seconds (24.1-36.2)
[2021-07-09 07:55] LABS: Base Excess -9 mmol/L (-2 to +2); Bicarbonate 17.8 mmol/L (22-26); Blood Gas Specimen Type ART; FI02 30; Mode AC; O2 Delivery Device Adult Vent; PEEP 5; PO2 67 mmHG (75-100); RR 16; SITE L Brach; SO2 91 % (95-99); Total Carbon Dioxide 19 mmol/L; Vt 350; pCO2 36.8 mmHg (35-45); pH 7.29 (7.35-7.45)
[2021-07-09 08:07] LABS: Anion Gap 13 (5-15); BUN 76 mg/dL (7-18); BUN/Creat Ratio 22.4 RATIO (10-20); Calcium,Total 6.8 mg/dL (8.5-10.1); Chloride 114 mmol/L (98-107); Creatinine, Serum 3.39 mg/dL (0.55-1.02); EST Glomerular Filtration Rate 15 mL/min (>60); Est Glom Filt Rate - Afr Amer 18 mL/min (>60); Estimated Creatinine Clearance 13.87 ml/min; Glucose 686 mg/dL (74-106); Potassium 3.9 mmol/L (3.5-5.1); Sodium Level 147 mmol/L (136-145)
[2021-07-09 08:26] LABS: Bedside Glucose > 500 mg/dL (70-110)
[2021-07-09 08:29] LABS: Hemoglobin A1c > 14.0 % (3.8-5.6)
--- NOTE | 2021-07-09 08:51 | PCS.PANDOC ---
PANDEMIC DOCUMENTATION INITIATED: Date: 04/07/2021 Time: 190
[2021-07-09 09:16] LABS: Bedside Glucose > 500 mg/dL (70-110)
--- NOTE | 2021-07-09 09:39 | PN.HOSP_ITS ---
Subjective Subjective Intubated and sedated, on 3 pressors Objective Data Objective Data Vital Signs: Vital Signs Temp Pulse Resp BP Pulse Ox 99.9 F H 104 H 16 97/62 98 07/09/21 09:00 07/09/21 09:00 07/09/21 09:00 07/09/21 09:00 07/09/21 09:00 Oxygen Flow Rate (L/min) 15 Oxygen Delivery Method Mechanical Ventilator Weight: 123 lb 0.287 oz Body Mass Index (BMI) 20.5 Intake & Output: Intake and Output for Last 24 Hours 07/08/21 07/09/21 07/10/21 03:59 03:59 03:59 Intake Total 5945.60 / 6010.10 3003.57 / 3003.57 Output Total 225 / 275 100 / 100 Balance 5720.60 / 5735.10 2903.57 / 2903.57 Lab / Micro Data Result Diagrams: 07/09/21 03:05 07/09/21 07:20 Labs: Laboratory Results - last 24 hr 07/08/21 17:10: WBC 18.8 H, RBC 4.41, Hgb 13.3, Hct 44.9, MCV 101.8 H, MCH 30.2, MCHC 29.6 L, RDW Std Deviation 49.3 H, RDW Coeff of Lurdes 13.1, Plt Count 347, MPV 11.3, Neut % (Auto) Not Reportable, Absolute Neuts (auto) 15.8 H, Absolute Lymphs (auto) 2.07, Total Counted 100, Neutrophils % (Manual) 78 H, Band Neutrophils % 6 H, Lymphocytes % (Manual) 11 L, Monocytes % (Manual) 3, Metamyelocytes % 1, Myelocytes % 1 H, Diff Path Review December, Platelet Estimate ADEQUATE, RBC Morphology NORM C+C 07/08/21 17:10: Sodium 138, Potassium 5.0, Chloride 100, Carbon Dioxide 9.0 L*, Anion Gap 29 H, BUN 84 H, Creatinine 3.52 H, Estim Creat Clear Calc 12.77, Est GFR (MDRD) Af Amer 17 L, Est GFR (MDRD) Non-Af 14 L, BUN/Creatinine Ratio 23.9 H , Glucose 950 H*, Calcium 9.5, Total Bilirubin 0.30, AST 69 H, ALT 39, Alkaline Phosphatase 101, Total Creatine Kinase 1550 H, Troponin I High Sens 8174 H*, Total Protein 5.7 L, Albumin 2.0 L, Globulin 3.7, Albumin/Globulin Ratio 0.5 L, Lipase 111 07/08/21 17:10: Acetone Level LARGE H 07/08/21 17:30: Urine Color Yellow, Urine Clarity Clear, Urine pH 5.0, Ur Specific [place] 1.020, Urine Protein 500 H, Urine Glucose (UA) 1000 H, Urine Ketones 15 H, Urine Occult Blood 250 H, Urine Nitrite Negative, Urine Bilirubin Negative, Urine Urobilinogen Normal, Ur Leukocyte Esterase Negative, Urine RBC 0-5 SEEN, Urine WBC 0 SEEN, Ur Squamous Epith Cells 0-5 SEEN, Urine Bacteria RARE, Hyaline Casts 0-5 SEEN, Urine Mucus 0 SEEN 07/08/21 18:30: PT 17.0 H, INR 1.5, APTT 32.7 07/08/21 18:30: Lactic Acid 1.9 07/08/21 19:49: POC Glucose > 500 H* 07/08/21 21:09: POC Glucose > 500 H* 07/08/21 21:10: Sodium 147 H, Potassium 3.6, Chloride 111 H, Carbon Dioxide 11.0 L, Anion Gap 25 H, BUN 76 H, Creatinine 3.15 H, Estim Creat Clear Calc 14.27, Est GFR (MDRD) Af Amer 19 L, Est GFR (MDRD) Non-Af 16 L, BUN/Creatinine Ratio 24.1 H, Glucose 915 H*, Calcium 7.7 L, Phosphorus 8.0 H, Magnesium 2.7 H, Total Bilirubin 0.30, AST 116 H, ALT 51, Alkaline Phosphatase 97, Total Protein 5.0 L, Albumin 1.7 L, Globulin 3.3, Albumin/Globulin Ratio 0.5 L 07/08/21 21:10: Troponin I High Sens 8842 H* 07/08/21 22:35: MRSA (PCR) Negative 07/08/21 23:05: Sodium 145, Potassium 3.2 L, Chloride 111 H, Carbon Dioxide 14.0 L, Anion Gap 20 H, BUN 73 H, Creatinine 2.98 H, Estim Creat Clear Calc 15.78, Est GFR (MDRD) Af Amer 20 L, Est GFR (MDRD) Non-Af 17 L, BUN/Creatinine Ratio 24.5 H, Glucose 923 H*, Calcium 7.2 L 07/08/21 23:05: Troponin I High Sens 8500 H* 07/09/21 01:15: Sodium 147 H, Potassium 3.1 L, Chloride 112 H, Carbon Dioxide 16.0 L, Anion Gap 19 H, BUN 74 H, Creatinine 3.07 H, Estim Creat Clear Calc 15.31, Est GFR (MDRD) Af Amer 20 L, Est GFR (MDRD) Non-Af 16 L, BUN/Creatinine Ratio 24.1 H, Glucose 830 H*, Calcium 7.0 L 07/09/21 03:05: Sodium 148 H, Potassium 3.1 L, Chloride 113 H, Carbon Dioxide 18.0 L, Anion Gap 17 H, BUN 78 H, Creatinine 2.99 H, Estim Creat Clear Calc 15.72, Est GFR (MDRD) Af Amer 20 L, Est GFR (MDRD) Non-Af 17 L, BUN/Creatinine Ratio 26.1 H, Glucose 750 H*, Calcium 6.9 L, Magnesium 2.1 07/09/21 03:05: WBC 4.8, RBC 3.55 L, Hgb 10.7 L, Hct 33.2 L, MCV 93.5 D, MCH 30.1, MCHC 32.2 D, RDW Std Deviation 43.2, RDW Coeff of Lurdes 12.5, Plt Count 252, MPV 10.2, Immature Gran % (Auto) SENIOR SQL DATABASE DEVELOPER, Neut % (Auto) SENIOR SQL DATABASE DEVELOPER, Lymph % (Auto) SENIOR SQL DATABASE DEVELOPER, Williamson % (Auto) SENIOR SQL DATABASE DEVELOPER, Eos % (Auto) SENIOR SQL DATABASE DEVELOPER, Baso % (Auto) SENIOR SQL DATABASE DEVELOPER, Absolute Neuts (auto) 3.6, Absolute Lymphs (auto) 1.10, Total Counted 100, Neutrophils % (Manual) 45 L, Band Neutrophils % 6 H, Lymphocytes % (Manual) 23, Monocytes % (Manual) 2, Metamyelocytes % 23 H, Myelocytes % 1 H, Nucleated RBC % 0, Diff Path Review December, Platelet Estimate ADEQUATE, RBC Morphology NORM C+C 07/09/21 03:05: Total Creatine Kinase 3189 H 07/09/21 03:05: Acetone Level MODERATE H 07/09/21 03:05: Hemoglobin A1c > 14.0 H 07/09/21 03:05: Phosphorus 4.4 11/17/21 05:20: APTT > 250.0 H* 07/09/21 05:20: Glucose 693 H* 07/09/21 07:00: POC Glucose > 500 H* 07/09/21 07:20: Sodium 147 H, Potassium 3.9, Chloride 114 H, Carbon Dioxide 20.0 L, Anion Gap 13, BUN 76 H, Creatinine 3.39 H, Estim Creat Clear Calc 13.87, Est GFR (MDRD) Af Amer 18 L, Est GFR (MDRD) Non-Af 15 L, BUN/Creatinine Ratio 22.4 H , Glucose 686 H*, Calcium 6.8 L 07/09/21 09:11: POC Glucose > 500 H* Micro: Microbiology 07/09/21 08:25 Gastric Fluid/Contents Gastric Occult Blood - Final Occult Blood Positive 07/08/21 18:30 Blood Culture (Wb) - Central Line Blood Culture - Preliminary 07/08/21 22:25 Urine Catheter - Whalen Legionella Antigen - Final 07/08/21 22:25 Urine Catheter - Whalen Streptococcus pneumoniae Antigen (M - Final 07/08/21 22:25 Interface Orders Stool Occult Blood (AURELIO) - Final 07/08/21 18:32 Nasal Secretion SARS-CoV-2 Antigen (Rapid) - Final ABG Data ABG results: ABG 07/08/21 07/08/21 07/09/21 17:19 21:25 07:48 Specimen Type ART ART ART Sample Site L Fem L Brach L Brach pH 7.04 L* 7.06 L* 7.29 L Bicarbonate Actual 7.2 L 10.8 L 17.8 L Total CO2 8 12 19 Base Excess -23 L -20 L -9 L O2 Saturation 100 H 97 91 L O2 % 35 30 ABG pCO2 26.7 L 38.0 36.8 ABG pO2 288 H 127 H 67 L Storm Test Positive N/A Respiration Rate 12 16 O2 Delivery Device NRB Adult Vent Adult Vent Liter Flow 15.0 Vent Mode AC AC Tidal Volume 350 350 POC PEEP 5 5 Crit Call To/Read Back Yes Yes Blood Gas Notified Whom Dr [facility] Radiography Diagnostic Testing: Radiology Impression Chest X-Ray 07/08/21 17:14 IMPRESSION: No radiographic evidence of acute cardiopulmonary disease. at 1742 Reported and signed by: Brock Ozuna MD Electronically Signed: Brock Ozuna MD at 17:41 EST Tel , Service support , Brain CT 07/08/21 17:18 IMPRESSION: Hypoattenuation seen within the parietal and occipital lobes bilaterally possibly representing posterior reversible encephalopathy syndrome (PRES). There is no hemorrhage identified. If indicated further evaluation with MRI may be beneficial. Individualized dose optimization techniques were used for this CT. at 2137 Reported and signed by: Brock Ozuna MD Electronically Signed: Brock Ozuna MD at 21:36 EST Tel , Service support , Chest X-Ray 07/08/21 17:46 IMPRESSION: No acute pulmonary abnormality. Support structures in good position. at 1819 Reported and signed by: Brock Ozuna MD Electronically Signed: Brock Ozuna MD at 18:18 EST Tel , Service support , Chest X-Ray 07/08/21 18:15 IMPRESSION: 1. No change in the appearance of the chest from the reference exam. 2. Support structures in good position. at 1909 Reported and signed by: Brock Ozuna MD Electronically Signed: Brock Ozuna MD at 19:08 EST Tel , Service support , Physical Exam Const General Appearance: intubated and patient mechanically ventilated HEENT moist oral mucous membranes HEENT Narrative: Left periorbital edema and swelling Head and Scalp: normocephalic Eyes conjunctivae normal Neck supple and no JVD Resp no use of accessory muscles Auscultation: diminished lung sounds; Negative for crackles, rales, rhonchi or wheezes Cardio S1 normal heart sound, S2 normal heart sound and no murmurs Rate: tachycardic Rhythm: abnormal rhythm GI soft to palpation and non-distended; Negative for hepatosplenomegaly Extremity no clubbing, cyanosis or edema Skin Skin Narrative: Black eschar on her left face. Bruises over her right hand and left leg Neuro Sensorium / Orientation: sedated on vent Psych Appearance: intubated Assessment & Plan Assessment/Plan (1) Respiratory failure: (2) Non-STEMI (non-ST elevated myocardial infarction): (3) Diabetic ketoacidosis: PLAN: 1. Shock undifferentiated, unclear etiology with hypothermia: Nanda mary is being admitted in ICU. Patient already on Levophed. Started on vasopressin. Discussed with tapping machine operator and started on Solu-Cortef 100 mg every 8 hourly. Broad-spectrum antibiotic empirically Zosyn. Patient has leukocytosis with left shift but normal lactic acid. panculture, blood cultures and urine culture. UA is negative for pyuria. LE and nitrite negative. 07/09/2021: Continue with pressors. Appreciate tapping machine operator assistance. c/w tavia will need to have close family communication and discussions given the tenuous nature of her prognosis. 2. Acute hypoxic respiratory failure probably due to shock: Patient is intubated on AC mode ventilator. Marketing Editor has been consulted. 3. DKA with high anion gap metabolic acidosis with history of diabetes mellitus type 2: Patient is on IV fluid normal saline, insulin drip as per DKA protocol. ABG repeat ordered. Started on bicarb drip. Monitor BMP every 4 hourly. Titrate IV fluid and correct electrolytes as per labs. 07/09/2021: Continue with bicarb drip as well as insulin drip. Her blood sugars are coming down albeit slowly 4. Arrhythmia with high troponin suggestive of non-STEMI possible type II UT probably due to metabolic abnormality/high anion gap acidosis: ER physician discussed with Dr. Grimaldo. Wide QRS complex, repolarization abnormality and sometimes A. fib and prolonged QTC. QTC 610 ms. Patient on bicarb drip. Monitor EKG. Cycle isolated troponins. 07/09/2021: Unsurprising troponins are elevated given her rhabdomyolysis. We will continue with the heparin drip 5. Acute kidney injury on CKD stage IV with rhabdomyolysis with prolonged fall: On IV fluid. Monitor CK daily. Monitor kidney function. Patient has Whalen catheter. Urine is clear. 07/09/2021: Continue with IV fluids, her CPK has increased. 6. Other chronic multiple comorbidities hypertension, renal artery stenosis, hypertensive heart failure and nonadherent physician follow-up: Multiple comorbidities complicates the present care and expect difficult and delay recovery DVT: Heparin Charges/Coding Visit Charges Inpatient E&M: 03810 Subs Hosp L2
[2021-07-09 10:02] LABS: Glucose 689 mg/dL (74-106)
--- NOTE | 2021-07-09 10:40 | CASEMGMT ---
Social Work SW attended ICU rounds. Pt's dgt here and SW met with Linda and provided support. Linda states she is understanding of pt condition and that her uncle is on his way in to see pt. JAI will remain available for support. JUDITH Leyva
[2021-07-09 11:11] LABS: Bedside Glucose > 500 mg/dL (70-110)
[2021-07-09] MEDS: Chlorhexidine 15 ML PO ×2 (12:08→21:55)
[2021-07-09 12:10] LABS: Bedside Glucose > 500 mg/dL (70-110)
[2021-07-09 12:30] LABS: Anion Gap 12 (5-15); BUN 76 mg/dL (7-18); BUN/Creat Ratio 21.3 RATIO (10-20); Calcium,Total 6.5 mg/dL (8.5-10.1); Chloride 114 mmol/L (98-107); Creatinine, Serum 3.56 mg/dL (0.55-1.02); EST Glomerular Filtration Rate 14 mL/min (>60); Est Glom Filt Rate - Afr Amer 17 mL/min (>60); Estimated Creatinine Clearance 13.21 ml/min; Glucose 617 mg/dL (74-106); Potassium 3.8 mmol/L (3.5-5.1); Sodium Level 148 mmol/L (136-145)
[2021-07-09 13:10] LABS: Bedside Glucose 448 mg/dL (70-110)
[2021-07-09 14:06] LABS: Bedside Glucose > 500 mg/dL (70-110)
[2021-07-09 14:13] LABS: Pathologist Review Reviewed
[2021-07-09 14:17] LABS: Pathologist Review Reviewed
[2021-07-09] MEDS: Acetaminophen 650 MG Suppository RC (15:09)
[2021-07-09 15:21] LABS: Bedside Glucose 451 mg/dL (70-110)
[2021-07-09 15:34] LABS: Partial Thromboplast Time 234.4 Seconds (24.1-36.2)
[2021-07-09 16:25] LABS: Bedside Glucose 483 mg/dL (70-110)
[2021-07-09 17:15] LABS: Bedside Glucose 456 mg/dL (70-110)
[2021-07-09 18:00] LABS: Bedside Glucose 419 mg/dL (70-110)
[2021-07-09 19:01] LABS: Bedside Glucose 456 mg/dL (70-110)
[2021-07-10] VITALS (19 sets, daily range): BP systolic 88–147; BP diastolic 55–87; PULSE 97–133; RESP 12–16; TEMP 36.2–38.1; O2SAT 30–97
--- NOTE | 2021-07-10 01:08 | NURSING ---
Critical drips, Levo, Epi, Vaso, continue to infuse per order/protocol and have been infusing since the start of the shift at 1900. This nurse adjusted the volume to infuse based on what volume was left in the bags. This nurse did not realize that by doing this, it showed on the MAR/Titrations that drips were not infusing for the complete time. Charge nurse notified. She then reviewed medication administration charting with this RN. IV infusion bags to be scanned and hung per END time on OCT.
[2021-07-10 01:21] LABS: Partial Thromboplast Time 56.4 Seconds (24.1-36.2)
[2021-07-10 03:06] LABS: Hematocrit 29.4 % (37-47); Hemoglobin 9.9 g/dL (12.0-15.0); Mean Corp Hgb Conc 33.7 g/dL (32-36); Mean Corpuscular Hgb 29.9 pg (27.0-32.0); Mean Corpuscular Volume 88.8 fL (81-99); Mean Platelet Vol. 11.6 fl (6.2-12.0); POSITIVE COUNT YES; POSITIVE MORPHOLOGY YES; Platelet Count 160 K/mm3 (150-450); RBC Distribution Width SD 41.8 fl (35.1-43.9); Red Blood Count 3.31 M/mm3 (4.2-5.4); White Blood Count 17.6 K/mm3 (4.4-11.0)
[2021-07-10 03:49] LABS: Anion Gap 11 (5-15); BUN 74 mg/dL (7-18); BUN/Creat Ratio 20.9 RATIO (10-20); CPK Total, Creatine Kinase 3617 U/L (26-192); Calcium,Total 6.1 mg/dL (8.5-10.1); Chloride 114 mmol/L (98-107); Creatinine, Serum 3.54 mg/dL (0.55-1.02); EST Glomerular Filtration Rate 14 mL/min (>60); Est Glom Filt Rate - Afr Amer 17 mL/min (>60); Estimated Creatinine Clearance 13.28 ml/min; Glucose 379 mg/dL (74-106); Potassium 4.2 mmol/L (3.5-5.1); Sodium Level 149 mmol/L (136-145)
[2021-07-10 03:56] LABS: Bedside Glucose 338 mg/dL (70-110)
[2021-07-10 03:56] LABS: Bedside Glucose 433 mg/dL (70-110)
[2021-07-10 03:56] LABS: Bedside Glucose 435 mg/dL (70-110)
[2021-07-10 03:56] LABS: Bedside Glucose 383 mg/dL (70-110)
[2021-07-10 03:56] LABS: Bedside Glucose 458 mg/dL (70-110)
[2021-07-10 03:56] LABS: Bedside Glucose 306 mg/dL (70-110)
[2021-07-10 03:56] LABS: Bedside Glucose 361 mg/dL (70-110); Differential Indicated MANUAL DIFF
[2021-07-10 04:00] LABS: Metamyelocyte 8 % (0-1); Myelocyte 2 % (0-0); Neutrophil-Band 18 % (0-5); Neutrophil-Segmented 42 % (47-70)
[2021-07-10 04:00] LABS: Bedside Glucose 380 mg/dL (70-110)
[2021-07-10 04:01] LABS: Lymphocyte 18 % (19-41); Monocyte 12 % (0-10); Platelet Estimate ADEQUATE (ADEQ)
[2021-07-10 04:02] LABS: Nucleated Red Bld Cells,Manual 1 % (0-5); Red Cell Morphology NORM C+C NORMAL (NORM C&C)
--- NOTE | 2021-07-10 04:57 | NURSING ---
Dr. Park notified of pts critical calcium level 6.1. She states she will place orders.
[2021-07-10] MEDS: Hydrocortisone Sod Succinate 100 MG/2 ML Vial IV (05:06)
[2021-07-10 05:37] LABS: Absolute Neutrophil Count 10.6 X10^3/uL (2.0-7.7)
[2021-07-10 05:38] LABS: Absolute Lymphocyte Count 3.17 X10^3/uL (0.83-4.51)
[2021-07-10 06:03] LABS: Partial Thromboplast Time 56.2 Seconds (24.1-36.2)
[2021-07-10] MEDS: Aspirin 81 MG TAB.CHEW GT (08:02)
[2021-07-10 08:35] LABS: Bedside Glucose 309 mg/dL (70-110)
[2021-07-10 08:35] LABS: Bedside Glucose 286 mg/dL (70-110)
[2021-07-10 08:35] LABS: Bedside Glucose 320 mg/dL (70-110)
[2021-07-10] MEDS: Chlorhexidine 15 ML PO (08:41)
--- NOTE | 2021-07-10 08:49 | PN.CC_ITS ---
Assessment & Plan Assessment/Plan (1) Encephalopathy: PLAN: RECOMMENDATIONS: 1. Continue vasopressor support as ordered to maintain a mean arterial pressure at or above 65 mmHg. 2. Continue stress dose steroids. 3. Continue bicarbonate containing fluids. 4. Continue antimicrobials. 5. Continue heparin infusion and aspirin for now, per cardiology recommendations. 6. Continue PPI therapy as ordered. 7. Avoid sedating medications. 8. Ongoing goals of care discussion with the patient's family. IMPRESSIONS: 1. Gram-negative septic shock The patient presented to the hospital after being found down at home and was subsequently found to have gram-negative bacteremia. The patient has been more than adequately volume resuscitated, but is requiring high doses of multiple different vasopressors in an attempt to maintain hemodynamic stability. Accordingly, stress dose steroids will also be continued. Given the propensity to develop hyperchloremic metabolic acidosis, normal saline infusion has been discontinued. 2. Encephalopathy Likely multifactorial in etiology. The patient did have findings concerning for possible PRES on head imaging and has significant underlying metabolic derangements. In addition, an anoxic insult is also a possibility. She is currently comatose on the ventilator, despite not having received any sedating medications. This portends a very poor prognosis. Plan to continue current supportive measures as noted above. 3. Acute hypoxemic respiratory failure The patient was intubated in the emergency department over concerns for airway protection in the setting of encephalopathy. Continue assist control mode of mechanical ventilation and wean FiO2 for saturations greater than 90%. 4. Diabetic ketoacidosis The patient has been adequately volume resuscitated and will remain on a continuous insulin infusion until anion gap has been closed x2. Continue to monitor and replete electrolytes as needed. 5. Acute on chronic kidney disease Likely prerenal in etiology in the setting of septic shock and has moderate diuresis from diabetic ketoacidosis. Continue supportive measures for now. I did confirm with the patient's family that they would not entertain the idea of dialysis if renal function does not improve. 6. Non-ST segment elevation IL Continue aspirin and heparin per cardiology recommendations. 7. History of hypertension/hyperlipidemia/diabetes mellitus Complicates care, management, recovery and prognosis. Hold home medications. Continue insulin infusion as ordered. UPDATE: In light of my conversation with the patient's daughter this morning, CODE STATUS has been updated to DNR CC. Palliative medications will be initiated and the patient will be terminally extubated, per family request. TIME: 36 minutes of critical care time, independent of procedures, was spent addressing the patient's gram-negative septic shock, encephalopathy, acute res piratory failure, diabetic ketoacidosis, acute on chronic kidney disease, NSTEMI, review of all data and collaboration with the care team. Subjective Subjective The patient was seen and examined at the bedside this morning. Events from the last 24 hours have been reviewed. The patient is currently afebrile, hemodynamically stable and maintaining appropriate oxygen saturations on assist control mode of mechanical ventilation with an FiO2 requirement of 30% and PEEP of 5. The patient's pupils have become fixed and dilated since yesterday. Her heart rhythm has become more irregular. She does not initiate any spontaneous breaths on pressure support mode mechanical ventilation. I did once again speak with the patient's daughter at the bedside this morning. She indicated that in light of the patient's neurological status and overall clinical state, she is wishing to pursue palliative withdrawal of life support. Objective Data Objective Data The patient's most recent lab work, culture data and imaging studies have all been personally reviewed. Vital Signs: Vital Signs Temp Pulse Resp BP Pulse Ox 99.3 F H 126 H 16 99/59 L 96 07/10/21 04:00 07/10/21 08:00 07/10/21 08:00 07/10/21 08:00 07/10/21 08:00 Oxygen Flow Rate (L/min) 15 Oxygen Delivery Method Mechanical Ventilator Weight: 61.2 kg Body Mass Index (BMI) 20.5 Intake & Output: Intake and Output for Last 24 Hours 07/08/21 07/09/21 07/10/21 23:59 23:59 23:59 Intake Total 4637.11 / 4701.80 7730.19 / 7820.57 2488.68 / 2488.68 Output Total 670 / 670 Balance 4637.11 / 4576.80 7060.19 / 7150.57 2465.68 / 2465.68 Lab / Micro Data Attestation: I reviewed the patient's lab results. Result Diagrams: 07/10/21 03:00 07/10/21 03:00 Labs: Laboratory Results - last 24 hr 07/08/21 17:10: Diff Path Review Reviewed 07/09/21 03:05: Diff Path Review Reviewed 07/09/21 09:10: Glucose 689 H* 07/09/21 09:11: POC Glucose > 500 H* 07/09/21 11:00: POC Glucose > 500 H* 07/09/21 12:05: Sodium 148 H, Potassium 3.8, Chloride 114 H, Carbon Dioxide 22.0, Anion Gap 12, BUN 76 H, Creatinine 3.56 H, Estim Creat Clear Calc 13.21, Est GFR (MDRD) Af Amer 17 L, Est GFR (MDRD) Non-Af 14 L, BUN/Creatinine Ratio 21.3 H, Glucose 617 H*, Calcium 6.5 L* 07/09/21 12:06: POC Glucose > 500 H* 07/09/21 13:05: POC Glucose 448 H 07/09/21 14:00: POC Glucose > 500 H* 07/09/21 14:50: APTT 234.4 H* 07/09/21 15:08: POC Glucose 451 H* 07/09/21 16:19: POC Glucose 483 H* 07/09/21 17:07: POC Glucose 456 H* 07/09/21 17:59: POC Glucose 419 H 07/09/21 18:56: POC Glucose 456 H* 07/09/21 20:01: POC Glucose 458 H* 07/09/21 20:57: POC Glucose 435 H 07/09/21 21:59: POC Glucose 433 H 07/09/21 23:02: POC Glucose 383 H 07/09/21 23:45: APTT 56.4 H 07/10/21 00:02: POC Glucose 306 H 07/10/21 01:00: POC Glucose 380 H 07/10/21 02:02: POC Glucose 338 H 07/10/21 03:00: Sodium 149 H, Potassium 4.2, Chloride 114 H, Carbon Dioxide 24.0, Anion Gap 11, BUN 74 H, Creatinine 3.54 H, Estim Creat Clear Calc 13.28, Est GFR (MDRD) Af Amer 17 L, Est GFR (MDRD) Non-Af 14 L, BUN/Creatinine Ratio 20.9 H, Glucose 379 H, Calcium 6.1 L*, Total Creatine Kinase 3617 H 07/10/21 03:00: WBC 17.6 H, RBC 3.31 L, Hgb 9.9 L, Hct 29.4 L, MCV 88.8 D, MCH 29.9, MCHC 33.7, RDW Std Deviation 41.8, RDW Coeff of Lurdes 13.0, Plt Count 160, MPV 11.6, Neut % (Auto) Not Reportable, Absolute Neuts (auto) 10.6 H, Absolute Lymphs (auto) 3.17, Neutrophils % (Manual) 42 L, Band Neutrophils % 18 H, Lymphocytes % (Manual) 18 L, Monocytes % (Manual) 12 H, Metamyelocytes % 8 H, Myelocytes % 2 H, Nucleated RBCs/100 WBC 1, Diff Path Review December, Platelet Estimate ADEQUATE, RBC Morphology NORM C+C 07/10/21 03:00: POC Glucose 361 H 07/10/21 04:01: POC Glucose 320 H 07/10/21 05:00: POC Glucose 309 H 07/10/21 05:40: APTT 56.2 H 07/10/21 06:54: POC Glucose 286 H Micro: Microbiology 07/08/21 23:45 Sputum, Induced/Lukens Gram Stain - Final 07/09/21 08:25 Gastric Fluid/Contents Gastric Occult Blood - Final Occult Blood Positive 07/08/21 18:30 Blood Culture (Wb) - Central Line Blood Culture - Preliminary 07/08/21 22:25 Urine Catheter - Whalen Legionella Antigen - Final 07/08/21 22:25 Urine Catheter - Whalen Streptococcus pneumoniae Antigen (M - Final 07/08/21 22:25 Interface Orders Stool Occult Blood (AURELIO) - Final 07/08/21 18:32 Nasal Secretion SARS-CoV-2 Antigen (Rapid) - Final Physical Exam Const General Appearance: intubated and patient mechanically ventilated Orientation / Consciousness: comatose HEENT normocephalic and head/scalp atraumatic Mouth: endotracheal tube in place and OG tube in place Eyes Pupil: dilated and fixed Neck supple General: trachea midline and CVC in place Chest inspection of chest normal Resp Auscultation: Negative for rales, rhonchi or wheezes Cardio regular rate and regular rhythm GI normal to inspection, nondistended, normoactive bowel sounds Extremity no clubbing, cyanosis or edema Skin Wound Narrative: Multiple pressure wounds noted Neuro Neuro Narrative: The patient is currently comatose on the ventilator. There is no pupillary or gag reflex noted. The patient does not initiate spontaneous breaths on spontaneous mode of mechanical ventilation. Charges/Coding Procedures Hospitalists Procedures: 13109 Critial Care 1st Hr
[2021-07-10 09:17] LABS: Bedside Glucose 298 mg/dL (70-110)
--- NOTE | 2021-07-10 10:37 | NURSING ---
Called Shania with [facility] to let her know family would like to withdraw care at this time and we would not be doing any kind of Brain testing.
[2021-07-10] MEDS: Morphine 2 MG/ML Syringe IV (11:27)
[2021-07-10] MEDS: LORazepam 2 MG/ML Syringe IV (11:28)
--- NOTE | 2021-07-10 11:42 | NURSING ---
Respiratory and this RN, with family present at the beside terminally weaned patient from the ventilator at this time. All medications were stopped at this time as well. Morphine and Ativan were given for comfort.
--- NOTE | 2021-07-10 12:30 | NURSING ---
Patient passed with family at bedside at 11:50am 07/10/21.
[2021-07-10 14:50] LABS: Pathologist Review Reviewed
--- NOTE | 2021-07-10 17:31 | EXP.PCM_ITS ---
Preliminary Cause of Preliminary Cause of Preliminary Cause of : Acute hypoxic respiratory failure secondary to gram-negative septic shock from Streptococcus gallolyticus Date of Admission: 07/08/21 Date of : 07/10/21 Principle Diagnosis Final diagnosis: #1 acute hypoxic respiratory failure secondary to gram-negative septic shock from Streptococcus #2 sepsis secondary to Streptococcus bacteremia #3 diabetic ketoacidosis #4 acute renal failure #5 non-ST elevation MD type II #6 metabolic encephalopathy Problem List: Active and Suspected Problems (Updated 07/09/21 @ 10:[address] Greg Draper, DO) Encephalopathy (Acute) Diabetic ketoacidosis (Acute) Respiratory failure (Acute) Non-STEMI (non-ST elevated myocardial infarction) (Acute) Acute renal failure due to rhabdomyolysis (Acute) Leukocytosis (Acute) Hospital Course This 66-year-old white female was brought to the emergency room at [facility] by squad after being found down at her home for an unknown period of time-believed to be 48 hours or [id number] in the emergency room dangelo wed the patient's EKG to be abnormal with some ST elevation in leads V2, V3 and V4, initially a STEMI was called, the publications editor was contacted and he did not feel that the EKG met STEMI criteria, patient was noted to be in DKA and the publications editor felt that the EKG changes were due to DKA. Patient's blood pressure was low and she was given IV fluids, labs showed a leukocytosis of 18.8, anion gap was elevated at 29, creatinine was elevated at 3.52 and BUN was 84. Blood sugar was elevated at 950. Patient had episodes of bradycardia while in the emergency room and epinephrine was administered. Blood gases obtained showed a pH of 7.04, PCO2 was 26.7, PO2 was 288 on nonrebreather. High sensitive troponin was 8174, chest x-ray revealed clear lung serrano. Patient was noted to have episodes of apnea in the emergency room and because of this and her altered mental status, the patient was intubated. Patient was admitted to the ICU and seen in consultation by critical care, she was given IV insulin and fluids, multiple vasopressors were used in an attempt to maintain hemodynamic stability, antibiotics were administered, labs were monitored. Conversations were carried out with the patient's family, prognosis was poor and the family decided that the patient should be extubated and comfort care be administered to the patient on 07/10/2021. On 07/10/2021, patient was extubated and shortly thereafter at 11:50 AM on 07/10/2021. Visit Charges Inpatient E&M: 55827 Disch Hosp
== END 2021-07-10 13:12 | DRG 871 ==
LOC: ED 18:50 → ICU 20:17
PROVIDERS: Family Medicine; Internal Medicine Critical Care Medicine; Admitting Provider Internal Medicine; Emergency Provider Emergency Medicine; Referring Provider Specialist; Visit Provider Internal Medicine
DX: A41.50 Gram-negative sepsis, unspecified (principal); E11.11 Type 2 diabetes mellitus with ketoacidosis with coma; I21.A1 Myocardial infarction type 2; J96.01 Acute respiratory failure with hypoxia; R65.21 Severe sepsis with septic shock; G93.41 Metabolic encephalopathy; N18.4 Chronic kidney disease, stage 4 (severe); M62.82 Rhabdomyolysis; L02.211 Cutaneous abscess of abdominal wall; N17.8 Other acute kidney failure; S80.02XA Contusion of left knee, initial encounter; S90.31XA Contusion of right foot, initial encounter; S60.221A Contusion of right hand, initial encounter; X58.XXXA Exposure to other specified factors, initial encounter; Y93.9 Activity, unspecified; Y92.091 Bathroom in other non-institutional residence as the place of occurrence of the external cause; B95.4 Other streptococcus as the cause of diseases classified elsewhere; B95.7 Other staphylococcus as the cause of diseases classified elsewhere; I95.9 Hypotension, unspecified; I12.9 Hypertensive chronic kidney disease with stage 1 through stage 4 chronic kidney disease, or unspecified chronic kidney disease; D64.9 Anemia, unspecified; E11.22 Type 2 diabetes mellitus with diabetic chronic kidney disease; I48.91 Unspecified atrial fibrillation; I44.7 Left bundle-branch block, unspecified; E78.5 Hyperlipidemia, unspecified; I70.1 Atherosclerosis of renal artery; Z79.4 Long term (current) use of insulin; Z79.82 Long term (current) use of aspirin; Z79.899 Other long term (current) drug therapy; F17.210 Nicotine dependence, cigarettes, uncomplicated; F17.290 Nicotine dependence, other tobacco product, uncomplicated
CPT/HCPCS: 31500; 31720; 36556; 36600; 51702; 70450; 71045; 80048; 80053; 81001; 82009; 82271; 82274; 82550; 82803; 82947; 82962; 83036; 83605; 83690; 83735; 84100; 84484; 85025; 85610; 85730; 87040; 87070; 87077; 87086; 87088; 87186; 87205; 87426; 87449; 87641; 93005; 94002; 94003; 99251; 99285; J7030; J7050; A4216; G0463; J3490